=== PATIENT | male | born 1945 | race African-American/Black ===

== ENCOUNTER 2019-10-08 13:56 | Outpatient (CLI) | payer MEDICARE, BC, SELFPAY ==
--- NOTE | ~2019-10-08 | CT_ITS ---
EXAMINATION: CT abdomen pelvis w con EXAM DATE: 10/08/2019 15:19 INDICATION: Prostate cancer. TECHNIQUE: Spiral CT of the abdomen and pelvis was performed following intravenous injection of 100 m L Omnipaque 350. Axial, coronal and sagittal images were reviewed. The dose-length product (DLP) fo r this examination was 1059.58 mGy-cm. The exposure was tailored according to patient size (auto mA exposure control), and iterative reconstruction (ASIR) was used as additional dose reduction techniqu e. Comparison is made to prior examination from 01/16/2019. FINDINGS: 7 mm simple cystic structure of the pancreatic tail is unchanged, not likely clinically sig nificant finding. The liver, spleen, adrenal glands and pancreas are otherwise unremarkable. Gallbl adder is unremarkable. No biliary obstruction. Portal and splenic veins are patent. Kidneys enhanc e symmetrically. There is no hydronephrosis. There is 3 mm right inferior calyceal stone. There is a 2.4 cm left renal cyst. There are prostate radiation seeds. The bladder is unremarkable. Several upper retroperitoneal lymph nodes which are upper limits of normal in size, unchanged compared to diana or study. Pelvic lymph nodes which are mildly enlarged, with a left obturator node measuring 1.8 x 1. 3 cm, unchanged. There is mild scattered arteriosclerotic disease. The appendix is normal. There is mild to moderate scattered colonic diverticulosis. There is no melanie cent inflammatory change to suggest diverticulitis. The stomach and small bowel are unremarkable. Th ere is expected amount of colonic stool. No free intraperitoneal gas. The heart is normal in size . There are no pericardial or pleural effusions. Bilateral hilar calcified lymph nodes, from prior granulomatous process. There is bibasilar subsegmental atelectasis. Mild lumbar levoscoliosis. There are no osteoblastic or osteolytic lesions identified. IMPRESSION: 1. Stable mild enlarged pelvic and borderline-sized upper retroperitoneal lymph nodes. 2. Stable subcentimeter pancreatic tail cystic lesion, likely benign. 3. Right nephrolithiasis. 4. Mild colonic diverticulosis. Reviewed, dictated and finalized at location A. IMPRESSION: 1. Stable mild enlarged pelvic and borderline-sized upper retroperitoneal lymp h nodes. 2. Stable subcentimeter pancreatic tail cystic lesion, likely benign. 3. Right nephrolithiasis. 4. Mild colonic diverticulosis.
[2019-10-08 15:14] LABS: Estimated Glomerular Filt Rate > 60
== END 2019-10-08 13:57 | disposition home or self-care (01) ==
LOC: ANHIMG 13:59
PROVIDERS: PCP Internal Medicine; Visit Provider Urology
DX: C61 Malignant neoplasm of prostate (principal); N20.0 Calculus of kidney; K57.30 Diverticulosis of large intestine without perforation or abscess without bleeding
CPT/HCPCS: 36415; 74177; Q9967

== ENCOUNTER 2021-08-08 09:51 | Outpatient (CLI) | payer MEDICARE, BC, SELFPAY ==
--- NOTE | ~2021-08-08 | NM_ITS ---
EXAMINATION: NM bone scan whole body DATE: 08/08/2021 13:23 INDICATION: Prostate cancer. TECHNIQUE: 24.2 mCi Tc-99m HDP was administered intravenously. Delayed whole-body scintigrams were o btained. COMPARISON: CT abdomen and pelvis 08/08/2021, bone scan 01/16/2019 FINDINGS: There are bilateral total knee arthroplasties. There is persistent increased activity in th e distal femora and proximal tibiae adjacent to the arthroplasty, which is a nonspecific finding and can be normal. There is increased activity in the spine correlating with spondylosis by CT. There is increased activity at the acromioclavicular joints without radiographic comparison, likely osteoarthr itis. IMPRESSION: 1. No evidence of metastatic disease. Reviewed, dictated and finalized at location B.
--- NOTE | ~2021-08-08 | CT_ITS ---
EXAMINATION: CT abdomen pelvis wo con DATE: 08/08/2021 11:03 INDICATION: Prostate cancer restaging TECHNIQUE: Computed tomography (CT) of the abdomen and pelvis was performed without intravenous contr ast. Automated exposure control and iterative reconstruction technique were employed. Exam dose: 100 6.59 mGy-cm total exam DLP. COMPARISON: 10/08/2019 CT abdomen pelvis FINDINGS: There is atelectasis at the base of the lingula and middle lobe and lesser mild bilateral l ower lobe infiltrate or atelectasis. Bilateral calcified hilar and mediastinal nodes, consistent with old pulmonary granulomatous disease. Mild cardiomegaly. Coronary artery calcification. No pericardial or pleural effusion. The liver, gallbladder, bile ducts, spleen, pancreas and pancreatic duct are unremarkable. Normal morphology of the adrenal glands. Approximately 5.5 mm nonobstructing lower pole right renal calculus Again noted is an approximately 2.3 cm lower pole left renal cyst no urinary tract calculus or hydrou reteronephrosis. There are numerous radiopaque prostate seeds. There is moderate diffuse thickening of the urinary nell dder wall. Small bilateral fat-containing inguinal hernias. Diverticulosis of left and right colon; no CT evidence of diverticulitis. Normal appendix. No bowel obstruction, bowel wall thickening, pneumatosis or intraperitoneal free air. Normal caliber of the abdominal aorta. No intraperitoneal or retroperitoneal or pelvic mass lesion or adenopathy or ascites. Degenerative changes of the thoracic and lumbar spine. No suspicious osteolytic or osteoblastic lesio ns are noted. IMPRESSION: Radiopaque prostate seeds Atelectasis in the lower lungs Mild thyromegaly nonobstructing lower pole right renal calculus Approximately 2.3 cm left renal cyst Diverticulosis of colon; no evidence of diverticulitis Reviewed, dictated and finalized at Location A. Reviewed, dictated and finalized at location A.
== END 2021-08-08 09:52 | disposition home or self-care (01) ==
PROVIDERS: PCP Internal Medicine; Visit Provider Nurse Practitioner Adult Health
DX: C61 Malignant neoplasm of prostate (principal); J98.11 Atelectasis; E01.0 Iodine-deficiency related diffuse (endemic) goiter; N20.0 Calculus of kidney; N28.1 Cyst of kidney, acquired; K57.90 Diverticulosis of intestine, part unspecified, without perforation or abscess without bleeding
CPT/HCPCS: 74176; 78306; A9561

== ENCOUNTER 2022-07-04 08:44 | Outpatient (CLI) | payer MEDICARE, BC, SELFPAY ==
--- NOTE | ~2022-07-04 | XR_ITS ---
XR abdomen/kub 1V 07/04/2022 09:00 Indication: Prostate cancer Procedure: KUB Comparison: No prior studies for comparison. Findings: There are radiation therapy implant seeds in the expected location of the prostate bed. The re is severe lumbar spondylosis with levoscoliosis. Nonobstructive bowel gas pattern. 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 There is atherosclerosis. No abnormal calcifications. Impression: 1: No acute abdominal abnormality. Reviewed, dictated and finalized at location B. Impression: 1: No acute abdominal abnormality.
--- NOTE | ~2022-07-04 | CT_ITS ---
EXAMINATION: CT abdomen pelvis wo con DATE: 07/04/2022 09:09 INDICATION: Prostate cancer TECHNIQUE: Computed tomography (CT) of the abdomen and pelvis was performed without intravenous contr ast. Automated exposure control and iterative reconstruction technique were employed. The dose-length product was 896.83 mGy-cm. COMPARISON: 08/08/2021 and 01/16/2019 FINDINGS: Unchanged 4 mm nodule in the superior segment of the left lower lobe. Bibasilar atelectasis. Calcifie d bilateral hilar and mediastinal lymph nodes consistent with old granulomatous disease. Heart size n ormal. Atherosclerotic coronary artery calcification. No pericardial or pleural effusion. Liver, gall bladder, spleen and bilateral adrenal glands are normal. Increase in size of a previously currently 1 .2 cm cystic lesion at the tail of the pancreas which measured 8 mm on the study from 2018. Bilateral low-attenuation renal cysts the largest on the left measuring 3.0 cm. 3-4 mm nonobstructing stone at a lower pole calyx of the right kidney. Moderate diverticulosis along the descending and sigmoid col on without adjacent comparison to suggest diverticulitis. Small bowel and appendix are normal. Bladde r is normal. Multiple brachytherapy seeds at the prostate. Unchanged small bilateral inguinal hernias containing fat and normal sized inguinal lymph nodes. No free intraperitoneal gas or fluid. No patho logically enlarged abdominal or pelvic lymphadenopathy. Mild lumbar levoscoliosis with severe spondyl osis. No suspicious lytic or blastic bone lesions. IMPRESSION: 1. Brachytherapy seeds at the prostate for reported prostate cancer. No evident metastatic disease. 2. Slight increase in size of an indeterminate cystic lesion at the tail of the pancreas currently me asuring 12 mm, increased from 8 mm on study dated 01/16/2019. Recommend continued annual follow-up pr eferably with pre and postcontrast MRI. 3. Nonobstructing 3-4 mm right renal stone. 4. Diverticulosis. Reviewed, dictated and finalized at location A. IMPRESSION: 1. Brachytherapy seeds at the prostate for reported prostate cancer. No evident metastatic disease. 2. Slight increase in size of an indeterminate cystic lesion at the tail of the pancreas currently measuring 12 mm, increased from 8 mm on study dated 019. Recommend continued annual follow-up preferably with pre and postcontrast MRI. 3. Nonobstructing 3-4 mm right renal stone. 4. Diverticulosis.
== END 2022-07-04 08:45 | disposition home or self-care (01) ==
PROVIDERS: PCP Internal Medicine; Visit Provider Urology
DX: C61 Malignant neoplasm of prostate (principal); K57.30 Diverticulosis of large intestine without perforation or abscess without bleeding; N20.0 Calculus of kidney
CPT/HCPCS: 74018; 74176

== ENCOUNTER 2023-12-11 13:10 | Outpatient (CLI) | payer MEDICARE, BC, SELFPAY ==
--- NOTE | ~2023-12-11 | PE_ITS ---
EXAMINATION: PET_PETPSMAST_PT DATE: 12/11/2023 15:30 INDICATION: Prostate cancer TECHNIQUE: 6.085 mCi of Illucix Ga-68(58-[id number]) was administered i.v. Low dose computed jersey graphy (CT) images were acquired from the base of the brain to the base of the brain to the proximal thighs for attenuation correction and anatomic localization. Positron emission tomography (PET) image s were acquired in the same distribution beginning 88 minutes after injection. Images including fused PET/CT images were reconstructed in axial, coronal, and sagittal planes. Automated exposure control technique was employed. The dose-length product was 1162.09 mGy-cm. COMPARISON: None FINDINGS: Head/neck: Typical pattern of symmetric physiologic increased activity in the lacrimal, parotid and submandibula r glands as well as along the mucosa of the nasal and oral cavities, pharynx and hypopharynx. No path ologically enlarged cervical lymphadenopathy or suspicious foci of increased uptake in the visualized head or neck. Chest: A few small bilateral calcified pulmonary nodules along with multiple calcified mediastinal and bilat eral hilar lymph nodes consistent with old granulomatous disease. Mild bibasilar atelectasis. No pneu monia, suspicious pulmonary nodules or pleural effusion. Heart size is normal. Atherosclerotic rashid ry artery calcific lesion. No pericardial effusion. Thoracic aorta is normal in caliber. No pathologi jose g enlarged or PSMA avid thoracic lymphadenopathy. Abdomen/pelvis/proximal thighs: Physiologic renal accumulation and excretion of activity in the kidneys, bladder and along portions o f ureters. 2.8 cm low-attenuation photopenic cyst at the lower pole of the left kidney. 3 mm nonobstr ucting stone at the lower pole of the right kidney. There are brachytherapy seeds at the prostate. Th ere is an approximately 1 cm focus of increased PSA may uptake with maximal SUV of 12 at the left pos terior superior aspect of the prostate consistent with recurrent disease. This is in a region of rela tive paucity of brachytherapy seeds. Normal degree and slightly heterogenous pattern of increased upt faina throughout the liver and spleen without radiologic correlate or dominant PSMA avid lesion. The ga llbladder, pancreas and bilateral adrenal glands are normal. Moderate uptake scattered throughout the bowels with typical duodenal and proximal jejunal predominance and without radiologic correlate, als o likely physiologic. Mild scattered diverticulosis with descending colon predominance. Normal append ix. No other abnormal foci of increased uptake or pathologically enlarged lymphadenopathy in the abdo men, pelvis or proximal thighs. Musculoskeletal: Mild lumbar levoscoliosis. Moderate to severe spondylosis in the cervical, thoracic and lumbar spine. No suspicious lytic, blastic or PSMA avid bone lesions. IMPRESSION: 1. Brachytherapy seeds in the prostate with 1 cm focus of increased PSMA activity at the left posteri or superior prostate suspicious for locally recurrent disease. No other lesions suspicious for more r emote metastatic disease. Reviewed, dictated and finalized at location A. IMPRESSION: 1. Brachytherapy seeds in the prostate with 1 cm focus of increased PSMA activi ty at the left posterior superior prostate suspicious for locally recurrent dis ease. No other lesions suspicious for more remote metastatic disease.
== END 2023-12-11 13:11 | disposition home or self-care (01) ==
PROVIDERS: PCP Internal Medicine; Visit Provider Urology
DX: C61 Malignant neoplasm of prostate (principal); Z96.89 Presence of other specified functional implants
CPT/HCPCS: 78815; A9596

== ENCOUNTER 2024-04-16 07:58 | Outpatient (CLI) | payer MEDICARE, BC, SELFPAY ==
--- NOTE | ~2024-04-16 | NM_ITS ---
EXAMINATION: NM bone scan whole body DATE: 04/16/2024 11:34 INDICATION: Prostate cancer TECHNIQUE: 26.9 mCi Tc-99m HDP was administered intravenously. Delayed whole-body scintigrams were o btained. COMPARISON: 08/08/2021 FINDINGS: Mild likely degenerative joint centered uptake at the bilateral sternoclavicular and acromioclavicula r joints. No interval change in additional likely degenerative disc centered and facet and costoverte bral vertebral articulation centered uptake in the thoracic and lumbar spine with corresponding degen erative skeletal changes are evident on the prior PET/CT. No other suspicious foci of abnormal bone u ptake to suggest metastatic disease. IMPRESSION: 1. No evident metastatic disease. 2. Persistent rim of increased uptake along the margins of bilateral revision total knee arthroplasti es. Recommend correlation with plain radiographs if there is concern for loosening. Reviewed, dictated and finalized at location A. ACTIVE SURGEON IMPRESSION: 1. No evident metastatic disease. 2. Persistent rim of increased uptake along the margins of bilateral revision t otal knee arthroplasties. Recommend correlation with plain radiographs if there is concern for loosening.
--- OUTSIDE RECORDS SUMMARY | 2024-04-16 08:03 | XMS_ITS | Encounter Summary ---
Author Organization [facility] Facility Care Team Providers Care Corporate Strategy Associate Name Role Phone Asad Engel MD Primary Care Provider [phone] Anirudh Weathers DO Primary Care Provider [phone] Asad Engel MD Primary Care Provider [phone] Kodak Albright MD Unavailable Anirudh Weathers DO Primary Care Provider [phone] Asad Engel MD Primary Care Provider [phone] Dajuan Weathers MD Unavailable [phone] Encounter Details Date Type Department Care Team (Latest Contact Info) Description 03/05/2017 Orders Only [facility] CLINCONV ProviderNidia MD [address] [place] [address] Social History Tobacco Use Types Packs/Day Years Used Date Smoking Tobacco: Never Sex and Gender Information Value Date Recorded Sex Assigned at Not on file Legal Sex Male 7:27 PM UPHOLSTERY BUNDLER Gender Identity Not on file Sexual Orientation Not on file documented as of this encounter Plan of Treatment Not on file documented as of this encounter Procedures Procedure Name Priority Date/Time Associated Diagnosis Comments SCAN - LABS 03/05/2017 12:00 AM UPHOLSTERY BUNDLER documented in this encounter Results * SCAN - LABS (03/05/2017 12:00 AM UPHOLSTERY BUNDLER) Narrative 03/05/2017 12:00 AM UPHOLSTERY BUNDLER Ordered by an unspecified provider. us Historical Provider Final Res ult documented in this encounter Visit Diagnoses Not on filedocumented in this encounter Additional Health Concerns Infection Onset Date Last Indicated Resolved Time COVID: Suspected 01/17/2022 01/17/2022 01/17/2022 10:28 PM UPHOLSTERY BUNDLER documented as of this encounter Care Teams Corporate Strategy Associate Relationship Specialty Start Date End Date Asad Engel MD PCP - General 05/16/18 12/21/18 Anirudh Weathers DO PCP - General 12/22/18 12/28/18 Asad Engel MD PCP - General 12/29/18 09/16/22 Anirudh Weathers DO [address] [address] PCP - General Orthopedic Surgery 09/17/22 10/14/22 Asad Engel MD PCP - General Internal Medicine 10/15/22 Kodak Albright MD Consulting Physician Pain Management 07/05/22 [place] [address] [place] [id number] Referring Physician Pediatrics 10/15/22 documented as of this encounter
--- OUTSIDE RECORDS SUMMARY | 2024-04-16 08:03 | XMS_ITS | Patient Health Summary ---
Author Organization [facility] [employer] Address [address] [place] [address] Care Team Providers Care Furnace Installer Name Role Phone Asad Engel MD Primary Care Provider [phone] Note from [facility],non-owned Affiliates and Associated Physician Practices is amultiple site organization consisting of ambulatory clinics and hospital sitesin [place], [place], [place] and [place]. This disclosure is being madepursuant to the Care Everywhere program and may not contain all information available regarding this patient. Last updated 17.[facility] Allergies * Diclofenac Sodium(Rash) -Medium Criticality * Iodine(Drug Reaction with Eosinophilia and Systemic Symptoms (DRESS)) -High Criticality Medications Be aware that medications may not be up to date on this document. Always verify current medications with the patient. No known medications Active Problems No known active problems Immunizations * INFLUENZA VACCINE(Given 12/09/2018) Social History Tobacco Use Types Packs/Day Years Used Date Smoking Tobacco: Never Assessed Sex and Gender Information Value Date Recorded Sex Assigned at Not on file Gender Identity Not on file Sexual Orientation Not on file Last Filed Vital Signs Vital Sign Reading Time Taken Comments Blood Pressure - - Pulse - - Temperature - - Respiratory Rate - - Oxygen Saturation - - Inhaled Oxygen Concentration - - Weight 106.1 kg (234 lb) 12/24/2018 11:46 AM CDT Height 167.6 cm (5' 6 ) 12/24/2018 11:46 AM CDT Body Mass Index 37.77 12/24/2018 11:46 AM CDT Procedures * XR KNEE LEFT 4VW OR MORE(Performed 12/24/2018) Performed for Left knee pain, unspecified chronicity Results * XR KNEE LEFT 4VW OR MORE (12/24/2018 11:18 AM CDT) Anatomical Region Laterality Modality Lower Extremity Radiographic Jane ging 12/24/2018 11:2 3 AM CDT Impressions 12/24/2018 12:07 PM CDT Satisfactory postop appearance. Edited by Vy Becerra on 12/24/2018 11:36 AM Reading Radiologist: Dennis Billy MD on 12/24/2018 at 12:07 PM Narrative 12/24/2018 12:07 PM CDT LEFT KNEE MULTIPLE VIEWS HISTORY: Knee pain. Views of the knee show a total knee prosthesis in satisfactory position. Procedure Note Dennis Billy MD - 12/24/2018 LEFT KNEE MULTIPLE VIEWS HISTORY: Knee pain. Views of the knee show a total knee prosthesis in satisfactory position. IMPRESSION Satisfactory postop appearance. Edited by Vy Becerra on 12/24/2018 11:36 AM Reading Radiologist: Dennis Billy MD on 12/24/2018 at 12:07 PM Murtaza Vines MD DIAGNOSTIC IMAGING ORDERABLES Care Teams Furnace Installer Relationship Specialty Start Date End Date Asad Engel MD [address] [place] [address] PCP - General 12/16/18
--- OUTSIDE RECORDS SUMMARY | 2024-04-16 08:03 | XMS_ITS | Encounter Summary ---
Author Organization [facility] Facility Care Team Providers Care Roentgenologist Name Role Phone Asad Engel MD Primary Care Provider [phone] Anirudh Weathers DO Primary Care Provider [phone] Asad Engel MD Primary Care Provider [phone] Kodak Albright MD Unavailable Anirudh Weathers DO Primary Care Provider [phone] Asad Engel MD Primary Care Provider [phone] Dajuan Weathers MD Unavailable [phone] Encounter Details Date Type Department Care Team (Latest Contact Info) Description 05/01/2017 Orders Only [facility] CLINCONV ProviderNidia MD [address] [place] [address] Social History Tobacco Use Types Packs/Day Years Used Date Smoking Tobacco: Never Sex and Gender Information Value Date Recorded Sex Assigned at Not on file Legal Sex Male 7:27 PM HOG TENDER Gender Identity Not on file Sexual Orientation Not on file documented as of this encounter Plan of Treatment Not on file documented as of this encounter Procedures Procedure Name Priority Date/Time Associated Diagnosis Comments PROCEDURE - RESULT 05/15/2017 12 :00 AM CDT documented in this encounter Results * PROCEDURE - RESULT (05/15/2017 12:00 AM CDT) Narrative 05/15/2017 12:00 AM CDT Ordered by an unspecified provider. us Historical Provider Final Res ult documented in this encounter Visit Diagnoses Not on filedocumented in this encounter Additional Health Concerns Infection Onset Date Last Indicated Resolved Time COVID: Suspected 01/17/2022 01/17/2022 01/17/2022 10:28 PM HOG TENDER documented as of this encounter Care Teams Roentgenologist Relationship Specialty Start Date End Date Asad Engel MD PCP - General 05/16/18 12/21/18 Anirudh Weathers DO PCP - General 12/22/18 12/28/18 Asad Engel MD PCP - General 12/29/18 09/16/22 Anirudh Weathers DO [address] [address] PCP - General Orthopedic Surgery 09/17/22 10/14/22 Asad Engel MD PCP - General Internal Medicine 10/15/22 Kodak Albright MD Consulting Physician Pain Management 07/05/22 Dajuan Weathers MD [address] [place] [address] Referring Physician Pediatrics 10/15/22 documented as of this encounter
--- OUTSIDE RECORDS SUMMARY | 2024-04-16 08:03 | XMS_ITS | Encounter Summary ---
Author Organization [facility] Care Team Providers Care Business Education Teacher Name Role Phone Asad Engel MD Primary Care Provider [phone] Anirudh Weathers DO Primary Care Provider [phone] Asad Engel MD Primary Care Provider [phone] Kodak Albright MD Unavailable Anirudh Weathers DO Primary Care Provider [phone] Asad Engel MD Primary Care Provider [phone] Dajuan Weathers MD Unavailable [phone] Encounter Details Date Type Department Care Team (Latest Contact Info) Description 03/13/2017 Orders Only [facility] CLINCONV ProviderNidia MD [address] [place] [address] Social History Tobacco Use Types Packs/Day Years Used Date Smoking Tobacco: Never Sex and Gender Information Value Date Recorded Sex Assigned at Not on file Legal Sex Male 7:27 PM INFECTIOUS DISEASE PHYSICIAN Gender Identity Not on file Sexual Orientation Not on file documented as of this encounter Plan of Treatment Not on file documented as of this encounter Procedures Procedure Name Priority Date/Time Associated Diagnosis Comments SCAN - LABS 03/13/2017 12:00 AM INFECTIOUS DISEASE PHYSICIAN documented in this encounter Results * SCAN - LABS (03/13/2017 12:00 AM INFECTIOUS DISEASE PHYSICIAN) Narrative 03/13/2017 12:00 AM INFECTIOUS DISEASE PHYSICIAN Ordered by an unspecified provider. us Historical Provider Final Res ult documented in this encounter Visit Diagnoses Not on filedocumented in this encounter Additional Health Concerns Infection Onset Date Last Indicated Resolved Time COVID: Suspected 01/17/2022 01/17/2022 01/17/2022 10:28 PM INFECTIOUS DISEASE PHYSICIAN documented as of this encounter Care Teams Business Education Teacher Relationship Specialty Start Date End Date Asad Engel MD PCP - General 05/16/18 12/21/18 Anirudh Weathers DO PCP - General 12/22/18 12/28/18 Asad Engel MD PCP - General 12/29/18 09/16/22 Anirudh Weathers DO [address] [address] PCP - General Orthopedic Surgery 09/17/22 10/14/22 Asad Engel MD PCP - General Internal Medicine 10/15/22 Kodak Albright MD Consulting Physician Pain Management 07/05/22 [place] [address] [place] [id number] Referring Physician Pediatrics 10/15/22 documented as of this encounter
--- OUTSIDE RECORDS SUMMARY | 2024-04-16 08:03 | XMS_ITS | Clinical Summary ---
Author Organization [facility] [employer] Address [address] [place] [address] Care Team Providers Care Photolithographer Name Role Phone Asad Engel MD Primary Care Provider [phone] Source Comments [facility] [employer],non-owned Affiliates and Associated Physician Practices is amultiple site organization consisting of ambulatory clinics and hospital sitesin [place], [place], [place] and [place]. This disclosure is being madepursuant to the Care Everywhere program and may not contain all information available regarding this patient. Last updated 17.[facility] [employer] Allergies Active Allergy Reactions Criticality Noted Date Comments Diclofenac Sodium Rash Medium 04/26/2015 Iodine Drug Reaction with E osinophilia and Systemic Symptoms (DRESS) High 01/11/2016 Medications Be aware that medications may not be up to date on this document. Always verify current medications with the patient. No known medications Active Problems No known active problems Immunizations Name Administration Dates Next Due INFLUENZA VACCINE 12/09/2018 Social History Tobacco Use Types Packs/Day Years [...] Mass Index 37.77 12/24/2018 11:46 AM CDT Plan of Treatment Health Maintenance Due Date Last Done Comments MEDICARE AWV 12 MONTHS 1945 HEPATITIS C SCREENING 06/27/1964 DTAP/TDAP/TD VACCINES (1 - Tdap) 1965 PNEUMOCOCCAL VACCINE 50+ (1 of 1 - PCV) 1996 ZOSTER VACCINE (1 of 2) 1996 Respiratory Syncytial Virus (RSV) Vaccine Pt: or over 60 yrs (1 - 1-dose 75+ series) 2021 COVID-19 VACCINE (1 - 2023- season) 2023 INFLUENZA VACCINE (#1) 2023 9, 01/16/2017, 01/10/2016, Additional history exists DEPRESSION SCREENING 02/26/2024 HEPATITIS B VACCINE Aged Out No longe r eligible based on patient's age to complete this topic HIB VACCINE Aged Out No longer eligi ble based on patient's age to complete this topic HPV VACCINE Aged Out No longer eligi ble based on patient's age to complete this topic MENINGOCOCCAL (Group B) VACCINE Aged Out No longer eligible based on patient's age to complete this topic MENINGOCOCCAL VACCINE Aged Out No jerica ashlyn eligible based on patient's age to complete this topic Care Teams Photolithographer Relationship Specialty Start Date End Date Asad Engel MD [address] [place] [id number] PCP - General 12/16/18
--- OUTSIDE RECORDS SUMMARY | 2024-04-16 08:03 | XMS_ITS | Continuity of Care Document ---
Author Organization [employer] Address [address] [place] [address] Phone Care Team Providers Care Correction Officer Head Name Role Phone Bur[place] Asad VILLAGOMEZ Unavailable Unavailable Allergies, Adverse Reactions, Alerts Substance Reaction Status Criticality levofloxacin tendonitis Active No Information IODINE Active No Information DICLOFENAC SODIUM Active No Informa tion Medications Medication Instructions Dosage Effective Dates (start - stop) Status Comments hydrocodone 5 mg-acetaminophen 325 mg tablet take 1 tablet by oral route every 6 hours as needed for pain as needed 1.00 tablet - Active reviewed PDMP on 02/24/2024 oxybutynin chloride ER 5 mg tablet,extended release 24 hr take 1 tablet by oral route every day 5 MG - Active Xarelto 20 mg tablet TAKE 1 TABLET BY MOUTH DAILY WITH EVENING MEAL - Active Lisinopril 5 MG Oral Tablet TAKE 1 TABLET BY MOUTH DAILY - Active glimepiride 4 mg tablet TAKE 1 AND 1/2 TABLETS BY MOUTH DAILY - Active Lexapro 10 mg tablet take 1 tablet by oral route every day 10 MG - Active Metoprolol Succinate ER 50 MG Oral Tablet Extended Release 24 Hour TAKE 1 TABLET BY MOUTH DAILY - Active Januvia 100 MG Oral Tablet TAKE 1 TABLET BY MOUTH DAILY - Active omeprazole 20 mg tablet,delayed release take 1 tablet by oral route daily - Active metformin ER 500 mg tablet,extended release 24 hr TAKE 2 TABLETS BY MOUTH DAILY WITH EVENING MEAL - Active furosemide 40 mg tablet take 1 tablet by oral route every day 40 MG - Active Atorvastatin Calcium 40 MG Oral Tablet TAKE 1 TABLET BY MOUTH DAILY - Active amantadine HCl 100 mg tablet take 0.5 tablet by mouth cable armorer before breakfast - Active Flomax 0.4 mg capsule take 1 capsule by oral route every day 1/2 hour following the same meal each day 0.4 MG - Active Breo Ellipta 100 mcg-25 mcg/dose powder for inhalation inhale 1 puff by inhalation route every day at the same time each day 1.00 puff - Active albuterol sulfate 2.5 mg/3 mL (0.083 %) solution for nebulization inhale 3 milliliter (2.5MG) by nebulization route every 4-6 hours as needed - Active J45.40 FreeStyle Lite Strips test blood sugar daily - Active prednisone 20 mg tablet take 2 tablet by oral route once a day for 5 days - No Longer Active Zithromax Z-Deejay 250 mg tablet take 2 tablet by oral route every day for 1 day then 1 tablet (250 mg) by oral route once daily for 4 days 500 MG - No Longer Active Procedures Procedure Date URINALYSIS, DIPSTICK (UA) - Office Lab D OFFICE SXYUX-JLE-PFYDTOSL BODY MASS INDEX DOCD SYST BP LT 130 MM HG DIAST BP < 80 MM HG URINALYSIS, DIPSTICK (UA) - Office Lab N Pt inelig neg scrn depres Depression screen annual Clin depression screen doc OFFICE [id number]-[id number] BODY MASS INDEX DOCD SYST BP LT 130 MM HG DIAST BP < 80 MM HG Admin influenza virus vac RIV3 VACCINE NO PRESERV IM BASIC METABOLIC PANEL(BMP) HEMOGLOBIN A1C HGA1C, GLYCO ROUTINE VENIPUNCTURE [place] OFFICE [id number] URINALYSIS, DIPSTICK (UA) - Office Lab J DSCHRG MED/CURRENT MED MERGE OFFICE DXNOO-MFE-XEORDVAI BODY MASS INDEX DOCD SYST BP GE 130 - 139MM HG DIAST BP < 80 MM HG Pt inelig neg scrn depres FALL RISK ASSESSMENT DOC'D PRES/ABSN URINE INCON ASSESS PPPS, subseq visit BODY MASS INDEX DOCD SYST BP LT 130 MM HG DIAST BP < 80 MM HG CBC, INC PLATELETS AND DIFFERENTIAL COMPREHEN METABOLIC PANEL CMP HEMOGLOBIN A1C HGA1C, GLYCO LIPID PANEL MICROALBUMIN, QN (URINE) CREATININE, (U-R) PSA, TOTAL PARATHYROID HORMONE (PTH) ROUTINE VENIPUNCTURE [place] Admin influenza virus vac FLU VACC PRSV FREE INC ANTIG BASIC METABOLIC PANEL(BMP) HEMOGLOBIN A1C HGA1C, GLYCO Pt inelig neg scrn depres OFFICE [id number] BODY MASS INDEX DOCD SYST BP LT 130 MM HG DIAST BP < 80 MM HG PNEUMOVAX ADM MEDICARE Pneumococcal Conjugate Vaccine (PCV20) A ROUTINE VENIPUNCTURE [place] OFFICE [id number]-MST-BNVWCTUS BODY MASS INDEX DOCD SYST BP >= 140 MM HG6 IT DIAST BP < 80 MM HG URINALYSIS, DIPSTICK (UA) - Office Lab J Pt inelig neg scrn depres OFFICE [id number]-JJN-[id number] BODY MASS INDEX DOCD SYST BP >= 140 MM HG6 IT DIAST BP < 80 MM HG URINALYSIS, DIPSTICK (UA) - Office Lab M BASIC METABOLIC PANEL(BMP) BRAIN NATRIURETIC PEPTIDE (BNP) 023 OFFICE GIXEN-ZAP-ABUHTRCY BODY MASS INDEX DOCD SYST BP >= 140 MM HG6 IT DIAST BP < 80 MM HG ROUTINE VENIPUNCTURE IL Pt inelig neg scrn depres FALL RISK ASSESSMENT DOC'D PRES/ABSN URINE INCON ASSESS OFFICE [id number] PPPS, subseq visit BODY MASS INDEX DOCD SYST BP LT 130 MM HG DIAST BP < 80 MM HG CBC, INC PLATELETS AND DIFFERENTIAL COMPREHEN METABOLIC PANEL CMP HEMOGLOBIN A1C HGA1C, GLYCO LIPID PANEL MICROALBUMIN, QN (URINE) CREATININE, (U-R) PSA, TOTAL PARATHYROID HORMONE (PTH) ROUTINE VENIPUNCTURE [place] OFFICE HYKYS-HQT-[id number] BODY MASS INDEX DOCD SYST BP GE 130 - 139MM HG DIAST BP < 80 MM HG DSCHRG MED/CURRENT MED MERGE OFFICE [id number]-DJB-[id number] BODY MASS INDEX DOCD SYST BP LT 130 MM HG DIAST BP < 80 MM HG OFFICE [id number]-YCJ-[id number] BODY MASS INDEX DOCD SYST BP >= 140 MM HG6 IT DIAST BP < 80 MM HG URINALYSIS, DIPSTICK (UA) - Office Lab O Admin influenza virus vac Flu Vac, quad (RIV4), Preservative And A ntibiotic Free IM Pt inelig neg scrn depres OFFICE LYPHY-UXZ-LZTMUGNY BODY MASS INDEX DOCD SYST BP >= 140 MM HG6 IT DIAST BP < 80 MM HG URINALYSIS, DIPSTICK (UA) - Office Lab A BASIC METABOLIC PANEL(BMP) HEMOGLOBIN A1C HGA1C, GLYCO ROUTINE VENIPUNCTURE IL Pt inelig neg scrn depres OFFICE PEAWQ-TUC-BRBGBARO BODY MASS INDEX DOCD SYST BP GE 130 - 139MM HG DIAST BP < 80 MM HG BASIC METABOLIC PANEL(BMP) HEMOGLOBIN A1C HGA1C, GLYCO ROUTINE VENIPUNCTURE IL URINALYSIS, DIPSTICK (UA) - Office Lab D Pt inelig neg scrn depres OFFICE EPSUA-NXM-SXZACEUS BODY MASS INDEX DOCD SYST BP >= 140 MM HG6 IT DIAST BP < 80 MM HG OFFICE PEAGH-QJY-KHLKHVCM [facility] - 139MM HG DIAST BP < 80 MM HG CBC, INC PLATELETS AND DIFFERENTIAL ROUTINE VENIPUNCTURE [place] OFFICE JYHHY-OSJ-INODEWOU BODY MASS INDEX DOCD SYST BP LT 130 MM HG DIAST BP < 80 MM HG CBC, INC PLATELETS AND DIFFERENTIAL COMPREHEN METABOLIC PANEL [facility] RBC SED RATE, AUTOMATED DRUG TEST (ANY NUMBER OF DRUG CLASSES) O GLUCOSE MONITORING, FINGERSTICK-OFFICE L AB ROUTINE VENIPUNCTURE IL Pt inelig neg scrn depres Admin influenza virus vac Flu Vac, quad (RIV4), Preservative And A ntibiotic Free IM PPPS, subseq visit [facility] 140 MM HG6 IT DIAST BP < 80 MM HG CBC, INC PLATELETS AND DIFFERENTIAL COMPREHEN METABOLIC PANEL [facility] HEMOGLOBIN A1C HGA1C, GLYCO LIPID PANEL MICROALBUMIN, QN (URINE) CREATININE, (U-R) PSA, TOTAL, SCREENING MEDICARE ONLY ROUTINE VENIPUNCTURE HEALTH RISK ASSESSMENT, PATIENT-FOCUSED MOUTHPIECE RESPIRATORY FLOW VOLUME LOOP OFFICE EVJBE-QJT-FDARANMU BODY MASS INDEX DOCD SYST BP >= 140 MM HG6 IT DIAST BP 80-89 MM HG Pt inelig neg scrn depres OFFICE [id number]-SWZ-[id number] BODY MASS INDEX DOCD SYST BP GE 130 - 139MM HG DIAST BP < 80 MM HG BASIC METABOLIC PANEL(BMP) HEMOGLOBIN A1C HGA1C, GLYCO ROUTINE VENIPUNCTURE IL HEALTH RISK ASSESSMENT, PATIENT-FOCUSED OFFICE WOIAZ-CSH-EOYLNMWJ BODY MASS INDEX DOCD SYST BP >= 140 MM HG6 IT DIAST BP < 80 MM HG MOUTHPIECE RESPIRATORY FLOW VOLUME LOOP Pt inelig neg scrn depres OFFICE RPLUJ-AUS-YGCPBUKQ BODY MASS INDEX DOCD SYST BP GE 130 - 139MM HG DIAST BP < 80 MM HG BASIC METABOLIC PANEL(BMP) HEMOGLOBIN A1C HGA1C, GLYCO ROUTINE VENIPUNCTURE IL C-REACTIVE PROTEIN (CRP) CBC, INC PLATELETS AND DIFFERENTIAL RBC SED RATE, AUTOMATED ROUTINE VENIPUNCTURE IL FALL RISK ASSESSMENT DOC'D PRES/ABSN URINE INCON ASSESS Pt inelig neg scrn depres PPPS, subseq visit BODY MASS INDEX DOCD SYST BP >= 140 MM HG6 IT DIAST BP < 80 MM HG Admin influenza virus vac Flu Vac, quad (RIV4), Preservative And A ntibiotic Free IM CBC, INC PLATELETS AND DIFFERENTIAL COMPREHEN METABOLIC PANEL CMP 0 HEMOGLOBIN A1C HGA1C, GLYCO LIPID PANEL MICROALBUMIN, QN (URINE) CREATININE, (U-R) PSA, TOTAL, SCREENING MEDICARE ONLY ROUTINE VENIPUNCTURE IL HEALTH RISK ASSESSMENT, PATIENT-FOCUSED OFFICE UGMOK-TPU-RZJKTYLL BODY MASS INDEX DOCD SYST BP >= 140 MM HG6 IT DIAST BP 80-89 MM HG RESPIRATORY FLOW VOLUME LOOP MOUTHPIECE Pt inelig neg scrn depres OFFICE EEESG-PUY-IMBZDMHP BODY MASS INDEX DOCD SYST BP >= 140 MM HG6 IT DIAST BP < 80 MM HG BASIC METABOLIC PANEL(BMP) HEMOGLOBIN A1C HGA1C, GLYCO ROUTINE VENIPUNCTURE IL BASIC METABOLIC PANEL(BMP) CBC, INC PLATELETS AND DIFFERENTIAL FERRITIN LEVEL FOLIC ACID (S) (FOLATE) HEMOGLOBIN A1C HGA1C, GLYCO IRON (FE), TOTAL TIBC, & % SATURATION RETICYTE/HGB CONCENTRATE VITAMIN B12 (SERUM) ROUTINE VENIPUNCTURE IL Pt inelig neg scrn depres TELEPHONE E&M BY A PHYSICIAN; 11-20 JOSÉ LUIS SHIELA SYST BP >= 140 MM HG6 IT DIAST BP >= 90 MM HG DSCHRG MED/CURRENT MED MERGE Pt inelig neg scrn depres Transitional Care- 14 Days Of Discharge BODY MASS INDEX DOCD SYST BP LT 130 MM HG DIAST BP < 80 MM HG Pt inelig neg scrn depres OFFICE [id number]-[id number] BODY MASS INDEX DOCD SYST BP LT 130 MM HG DIAST BP < 80 MM HG Pt inelig neg scrn depres OFFICE TRFST-XOO-WPEQCBLU BODY MASS INDEX DOCD SYST BP >= 140 MM HG6 IT DIAST BP < 80 MM HG CBC, INC PLATELETS AND DIFFERENTIAL COMPREHEN METABOLIC PANEL [facility] 0 ROUTINE VENIPUNCTURE IL FALL PLAN OF CARE DOC'D URINE INCON PLAN DOC'D PRES/ABSN URINE INCON ASSESS Admin influenza virus vac Flu Vac, quad (RIV4), Preservative And A ntibiotic Free IM Pt inelig neg scrn depres OFFICE [id number]-JPT-[id number] PPPS, subseq visit BODY MASS INDEX DOCD SYST BP GE 130 - 139MM HG DIAST BP < 80 MM HG CBC, INC PLATELETS AND DIFFERENTIAL COMPREHEN METABOLIC PANEL [facility] 9 HEMOGLOBIN A1C HGA1C, GLYCO LIPID PANEL MICROALBUMIN, QN (URINE) CREATININE, (U-R) PSA, TOTAL, SCREENING MEDICARE ONLY ROUTINE VENIPUNCTURE IL CBC, INC PLATELETS AND DIFFERENTIAL COMPREHEN METABOLIC PANEL [facility] 9 ROUTINE VENIPUNCTURE IL OFFICE MEJWV-RUO-[id number] BODY MASS INDEX DOCD SYST BP >= 140 MM HG6 IT DIAST BP < 80 MM HG OFFICE [id number]-[id number]-[id number] BODY MASS INDEX DOCD SYST BP GE 130 - 139MM HG DIAST BP < 80 MM HG PULMONARY SPIROMETRY, FUNCTION 19 MOUTHPIECE ADM SET WITH SMALL VOL NON FILTERED PNEU MATIC NEBULIZER DISPOSABLE INHALATION TREATMENT/THERAPY HEALTH RISK ASSESSMENT, PATIENT-FOCUSED OFFICE [id number]-YDC-LEAQCNCF BODY MASS INDEX DOCD SYST BP GE 130 - 139MM HG DIAST BP < 80 MM HG MOUTHPIECE PULMONARY SPIROMETRY, FUNCTION 19 Pt inelig neg scrn depres OFFICE CCBJT-PZO-NLOKMBEY BODY MASS INDEX DOCD SYST BP >= 140 MM HG6 IT DIAST BP < 80 MM HG BASIC METABOLIC PANEL(BMP) HEMOGLOBIN A1C HGA1C, GLYCO ROUTINE VENIPUNCTURE [place] Advance Directives Directive Yes / No Effective Date File Name Resuscitation Do Not Attempt Resuscitation/DNR N/A N/A Life Support Not Answered N/A N/A Intubation Not Answered N/A N/A Antibiotics Not Answered N/A N/A IV Fluid Support Not Answered N/A N/A Tube Feed Not Answered N/A N/A Other Directive N/A N/A WARNING:The information contained in this section is historical and is provided for information only and does not constitute a legal document or any assurance that the information is still accurate. Please verify the information with the gregory of the legal document before using it for clinical purposes. Encounters Encounter Description Practice Location Reason(s) For Visit Diagnoses Date Provider Providers Copied on Encounter [employer] [facility], [address], [place], [place], [address] , tel:[phone] [employer] [facility] No Information 5 English Kamara. [address] [place], [address], [place]. tel:[phone] [facility], [address], [place], [place], [address] , [place] tel: [phone] [employer] [facility] No Information 4 English Kamara. [address] [place], [place], [address], [place]. tel:[phone] [employer] [facility], [address], [place], [place], [address] , tel: [phone] [facility] Acute UTI 4 English Chauhan [address] [place], [place], [address], [place]. tel:[phone] Referring Provider: Asad Engel, [address] [place], [address] . tel:[phone] OFFICE FEXHS-AAG-DLM CUATE [facility], [address], [place], [place], [address] , tel: [phone] [facility] hematuria (chief complaint) Acute UTI 4 Blunt Merle. [address] [place], [place], [address], [place]. tel:[phone] Referring Provider: Asad Engel, [address] [place], [address] . tel:[phone] [facility], [address], [place], [place], [address] , tel: [phone] [facility] No Information 4 English Kamara. [address] [place], [address], [place]. tel:[phone] [facility], [address], [place], [place], [address] , [place] tel: [phone] [facility] No Information 4 English Kamara. [address] [place], [address], [place]. tel:[phone] [facility], [address], [place], [place], [address] , [place] tel: [phone] [facility] No Information 0 4 [place]ian Asad. [address] [place], [address], [place]. tel:[phone] OFFICE [id number]-GIF-WUQ CUATE [facility], [address], [place], [place], [address] , [place] tel: [phone] [facility] chronic conditons (chief complaint) Diabetes mellitus with peripheral circulatory disorderEssen tial (primary) hypertensionB jumana mass index [BMI] 37.0-37.9, adultModerate persistent asthma, uncomplicated Moderate major depression Sep-0 4 [place] Asad. [address] [place], [address], [place]. tel:[phone] Referring Provider: Asad Engel, [address] [place], [address] . tel:[phone] [facility], [address], [place], [place], [address] , [place] tel: [phone] [facility] No Information Sep-0 4 Yani Coates. [address] [facility], [address] [place] [address], [place], [place], [address], [place]. tel:[phone] Referring Provider: Asad Engel, [place], [address] . tel:[phone] [employer] [facility], [address], [place], [place], [address] , tel: [phone] [facility] Stage 3 chronic kidney disease, unspecified whether stage 3a or 3b CKDType 2 DM with CKD stage 3 and hypertensionH ypertensive chronic kidney disease with stage 1 through stage 4 chronic kidney disease, or unspecified chronic kidney disease Sep-0 4 English Kamara. [address] [place], [address], [place]. [phone] Referring Provider: Asad Engel, [place], [address] . tel:[phone] [facility] [place], [address], [place], [place], [address] , [place] tel: [phone] [facility] No Information Aug-2 4 English Kamara. [address] [place], [address], [place]. tel:[phone] [facility], [address], [place], [place], [address] , [place] tel: [phone] [employer] [facility] No Information Aug-0 4 English Kamara. [address] [place], [address], [place]. tel:[phone] OFFICE [id number]-DWX ANDED [facility], [address], [place], [place], [address] , tel: [phone] [facility] increased urination (chief complaint) Benign prostatic hyperplasia, unspecified whether lower urinary tract symptoms present 4 English Kamara. [address] [place], [address], [place]. tel:[phone] Referring Provider: Asad Engel, [address] [place], [address] . tel:[phone] [facility], [address], [place], [place], [address] , tel: [phone] [facility] No Information 4 English Kamara. [address] [place], [address], [place]. tel:[phone] OFFICE [id number]-VFG-UEH ANDED [facility], [address], [place], [place], [address] , [place] tel: [phone] [facility] ER followup (chief complaint) Acute UTIMass of right testicleBody mass index [BMI] 39.0-39.9, adult June-0 4 Jose Raul Chavezsia. [address] [place], [place], [address], [place]. tel:[phone] Referring Provider: Asad Engel, [address] [place], [address] . tel:[phone] [facility], [address], [place], [place], [address] , [place] tel: [phone] [facility] No Information 4 English Kamara. [address] [place], [address], [place]. tel:[phone] [facility], [address], [place], [place], [address] , tel: [phone] [facility] px (chief complaint)Me dicare preventive (chief complaint) Routine medical examBody mass index [BMI] 39.0-39.9, adultChronic obstructive pulmonary disease, unspecifiedDi abetes mellitus with peripheral circulatory disorderCoron angel artery calcification Atheroscleros is of aortaGastro-e sophageal reflux disease without esophagitisHy perlipidemia, unspecified hyperlipidemi a typeHypertens george chronic kidney disease with stage 1 through stage 4 chronic kidney disease, or unspecified chronic kidney diseaseMild cerebral atrophyStage 3 chronic kidney disease, unspecified whether stage 3a or 3b CKDProstate cancer 4 English Kamara. [address] [place], [place], [address], [place]. tel:[phone] Referring Provider: Asad Engel, [address] [place], [address] . tel:[phone] [facility], [address], [place], [place], [address] , tel: [phone] [facility] No Information 4 Yani Coates. [address] [place] [address], [id number], [place]. tel:[phone] Referring Provider: Asad Engel, [address] [place], [address] . tel:[phone] [facility], [address], [place], [place], [address] , [place] tel:[phone] [facility] Hypertensive chronic kidney disease with stage 1 through stage 4 chronic kidney disease, or unspecified chronic kidney diseaseStage 3 chronic kidney disease, unspecified whether stage 3a or 3b CKDType 2 DM with CKD stage 3 and hypertensionH yperlipidemia , unspecified hyperlipidemi a typeProstate cancer 4 English Kamara. [address] [place], [place], [address], [place]. tel:[phone] Referring Provider: Asad Engel, [address] [place], [address] . tel:[phone] [employer] [facility], [address], [place], [place], [address] , tel:[phone] [employer] [facility] No Information 3 English Chauhan [address] [place], [place], [address], [place]. tel:[phone] Referring Provider: [place], [address] . tel:[phone] [facility], [address], [place], [place], [address] , [place] tel: [phone] [facility] No Information 3 Yani Coates. [address] [facility], [address] [address], [place], [place], [address], [place]. tel:[phone] Referring Provider: [place], [address] . tel:[phone] OFFICE [id number]-NSD-OKV CUATE [facility], [address], [place], [place], [address] , [place] tel: [phone] [facility] Chr conditions (chief complaint) Moderate persistent asthma, uncomplicated Type 2 DM with CKD stage 3 and hypertensionH ypertensive chronic kidney disease with stage 1 through stage 4 chronic kidney disease, or unspecified chronic kidney diseaseStage 3 chronic kidney disease, unspecified whether stage 3a or 3b CKDBody mass index [BMI] 39.0-39.9, adult 3 English Kamara. [address] [place], [address], [place]. tel:[phone] Referring Provider: [place], [address] . tel:[phone] OFFICE FOSGC-HEV-OCZ ANDED [facility], [address], [place], [place], [address] , [place] tel: [phone] [facility] bilat feet swelling (chief complaint) Leg swelling 3 English Kamara. [address] [place], [place], [address], [place]. tel:[phone] Referring Provider: [place], [address] . tel:[phone] [facility], [address], [place], [place], [address] , tel: [phone] [facility] Frequent urination 3 English Kamara. [address] [place], [address], [place]. [phone] Referring Provider: Asad Engel, [place], [address] . tel:[phone] OFFICE TLZLI-DIB-OKN ANDED [facility], [address], [place], [place], [address] , [place] tel: [phone] [facility] Patient encounter (chief complaint) Body mass index [BMI] 40.0-44.9, adultLeg swelling 3 English Kamara. [address] [place], [address], [place]. tel:[phone] Referring Provider: [place], [address] . tel:[phone] [facility], [address], [place], [place], [address] , [place] tel: [phone] [facility] No Information 3 English Kamara. [address] [place], [address], [place]. [phone] [facility], [address], [place], [place], [address] , tel: [phone] [facility] No Information 3 Yani Coates. [address] [place] [address], [address], . tel:[phone] Referring Provider: [place], [address] . tel:[phone] OFFICE TUBBT-VLE-HTR ANDED [facility], [address], [place], [place], [address] , [place] tel: [phone] [facility] feet and ankle swelling (chief complaint) Leg swelling 3 English Kamara. [address] [place], [address], [place]. tel:[phone] Referring Provider: Asad Engel, [address] [place], [address] . tel:[phone] OFFICE WDJQT-ILT-RQD ANDED [employer] [facility], [address], [place], [place], [address] , [place] tel: [phone] [facility] Patient encounter (chief complaint)Me dicare preventive (chief complaint) Diabetes mellitus with peripheral circulatory disorderOSA (obstructive sleep apnea)Dyslipi demia, goal LDL below 100Prostate cancerMild cerebral atrophyStage 3 chronic kidney disease, unspecified whether stage 3a or 3b CKDGastro-eso phageal reflux disease without esophagitisAt herosclerosis of te-moak coronary artery of te-moak heart without angina pectorisAther osclerosis of aortaHistory of CVA (cerebrovascu lar accident)Vladimir gn prostatic hyperplasia, unspecified whether lower urinary tract symptoms presentPerson al history of other venous thrombosis and embolismHyper tensive chronic kidney disease with stage 1 through stage 4 chronic kidney disease, or unspecified chronic kidney diseaseType 2 DM with CKD stage 3 and hypertensionM oderate persistent asthma, uncomplicated Routine medical examBody mass index [BMI] 39.0-39.9, adultAcute nonintractabl e headache, unspecified headache type 3 Jose Raul Bloom. [address] [place], [place], [address], [place]. tel:[phone] Referring Provider: Asad Engel, [address] [place], [address] . tel:[phone] [facility], [address], [place], [place], [address] , [place] tel:[phone] [facility] No Information 3 Yani Coates. [address] [facility], [address] [address], [place], [place], [address], [place]. tel:[phone] Referring Provider: Asad Engel, [address] [place], [address] . tel:[phone] [facility], [address], [place], [place], [address] , tel:[phone] [employer] [facility] History of malignant neoplasm of prostateHyper tensive chronic kidney disease with stage 1 through stage 4 chronic kidney disease, or unspecified chronic kidney diseaseStage 3 chronic kidney disease, unspecified whether stage 3a or 3b CKDDiabetic peripheral angiopathyHyp erlipidemia, unspecified hyperlipidemi a type 3 English Kamara. [address], [address], [place]. tel:[phone] Referring Provider: [place], [address] . tel:[phone] OFFICE [id number]-SCE [facility] [employer] [facility], [address], [place], [place], [address] , tel: [phone] [employer] [facility] Patient encounter (chief complaint) Generalized abdominal pain 3 English Kamara. [place], [address], [place]. [phone] Referring Provider: [place], [address] . tel:[phone] [facility], [address], [place], [place], [address] , tel: [phone] [place] acute visit (chief complaint) Body mass index [BMI] 39.0-39.9, adultOSA (obstructive sleep apnea)Diabete s mellitus with peripheral circulatory disorder 2 English Kamara. [place], [address], [place]. tel:[phone] Referring Provider: [place], [address] . tel:[phone] OFFICE BNMKW-YWR-DGI [facility], [address], [place], [place], [address] , tel: [phone] [place] acute visit (chief complaint) Generalized abdominal pain 2 English Kamara. [place], [address], [place]. tel:[phone] Referring Provider: Asad Engel, [place], [address] . tel:[phone] [facility], [address], [place], [place], [address] , tel:[phone] Radha Urinary frequency 2 [place]ian Asad. [place], [address], . tel:[phone] Referring Provider: Asad Engel, [place], [address] . tel:[phone] [employer], [address], [place], [place], [address] , tel: [phone] Radha No Information 2 [place] Asad. [place], [address], . tel:[phone] Referring Provider: [place], [address] . tel:[phone] OFFICE TPIMK-DCE-GLA CUATE [facility], [address], [place], [place], [address] , tel: [phone] Radha Chronic conditions (chief complaint)Ch ronic Conditions (chief complaint) Diabetes mellitus with peripheral circulatory disorderMorbi d (severe) obesity due to excess caloriesMild cerebral atrophyDyslip idemia, goal LDL below 100Coronary artery calcification Coronary atheroscleros is due to calcified coronary lesionProstat e cancerBody mass index [BMI] 39.0-39.9, adultFrequent urination 2 [place]ian Asad. [place], [address], [place]. tel:[phone] Referring Provider: [place], [address] . tel:[phone] [employer] [facility], [address], [place], [place], [address] , tel: [phone] Radha Hypertension, unspecified typeDiabetic peripheral angiopathy 2 English Kamara. [address] [place], [address], . tel:[phone] Referring Provider: [place], [address] . tel:[phone] [facility], [address], [place], [place], [address] , [place] tel: [phone] Radha No Information 2 English Kamara. [address] [place], [address], [place]. tel:[phone] OFFICE CAMRG-MMD-BRA CUATE [facility], [address], [place], [place], [address] , [place] tel: [phone] [place] Chronic Conditions (chief complaint) Type 2 DM with CKD stage 3 and hypertensionH ypertensive chronic kidney disease with stage 1 through stage 4 chronic kidney disease, or unspecified chronic kidney diseaseStage 3 chronic kidney disease, unspecified whether stage 3a or 3b CKDAtheroscle rosis of aortaAtherosc lerosis of te-moak coronary artery of te-moak heart without angina pectorisBenig n prostatic hyperplasia, unspecified whether lower urinary tract symptoms presentPerson al history of other venous thrombosis and embolismHisto ry of prostate cancerGastro- esophageal reflux disease without esophagitisHi story of CVA (cerebrovascu lar accident)Mode rate persistent asthma, uncomplicated Body mass index [BMI] 39.0-39.9, adult May- 2 Jose Raul Bloom. [address] [place], [place], [address], . tel:[phone] Referring Provider: [place], [address] . tel:[phone] [facility], [address], [place], [place], [address] , [place] tel:[phone] Radha Anemia due to blood loss, chronicEssent ial (primary) hypertensionT ype 2 or unspecified type diabetes mellitus May- 2 English Kamara. [place], [address], . tel:[phone] Referring Provider: [place], [address] . tel:[phone] [facility], [address], [place], [place], [address] , tel: [phone] Radha Urinary frequencyAbno rmal urine findings 1 English Kamara. [place], [address], . [phone] Referring Provider: [place], [address] . tel:[phone] OFFICE EEGJQ-VIS-QTZ [facility], [address], [place], [place], [address] , tel: [phone] Radha chronic conditions (chief complaint) Body mass index [BMI] 39.0-39.9, adultHistory of CVA (cerebrovascu lar accident)Mode rate persistent asthma, uncomplicated Type 2 or unspecified type diabetes mellitus 1 English Kamara. [place], [address], [place]. [phone] Referring Provider: [place], [address] . tel:[phone] OFFICE GJAGZ-VNR-CRP [facility], [address], [place], [place], [address] , tel: [phone] Radha follow up (chief complaint) History of CVA (cerebrovascu lar accident)Ramon plegia as late effect of cerebrovascul ar disease, unspecified cerebrovascul ar disease type, unspecified hemiplegia type, unspecified laterality 1 English Kamara. [place], [address], [place]. tel:[phone] Referring Provider: [place], [address] . tel:[phone] [facility], [address], [place], [place], [address] , tel: [phone] Radha Altered mental status, unspecified altered mental status type 1 English Kamara. [place], [address], [place]. tel:[phone] [employer], [address], [place], [place], [address] , tel: [phone] Radha Abnormal blood chemistry test Nov-0 1 [place] John. [place], [address], . tel:[phone] Referring Provider: [place], [address] . tel:[phone] OFFICE BTOZW-PIM-PFA ANDED [facility], [address], [place], [place], [address] , tel: [phone] Radha ams (chief complaint) Body mass index [BMI] 39.0-39.9, adultAltered mental status, unspecified altered mental status type 1 English KamaraKyle [place]idd [place], [address], . [phone] Referring Provider: [place], [address] . tel:[phone] [employer], [address], [place], [place], [address] , tel: [phone] Radha px (chief complaint)Me dicare preventive (chief complaint) Body mass index [BMI] 40.0-44.9, adultMorbid (severe) obesity due to excess caloriesEncou nter for general adult medical examination without abnormal findingsType 2 or unspecified type diabetes mellitusPerso nal history of other venous thrombosis and embolismHisto ry of prostate cancerModerat e persistent asthma, uncomplicated Gastro-esopha geal reflux disease without esophagitisHy pertension, unspecified type 1 [place] John. [place], [address], [place]. tel:[phone] Referring Provider: [place], [address] . tel:[phone] [employer], [address], [place], [place], [address] , [place] tel: [phone] [place] Hypertension, unspecified typeDiabetic peripheral angiopathyDys lipidemia, goal LDL below 100Encounter for screening for malignant neoplasm of prostate 1 English Kamara. [address] [place], [place], [address], [place]. tel:[phone] Referring Provider: Asad Engel, [address] [place], [address] . tel:[phone] OFFICE RZSTH-WCK-HUM [facility], [address], [place], [place], [address] , [place] tel: [phone] [facility] Asthma Allergy Mar[place] asthma (chief complaint)As thma-control (chief complaint)al lergies (chief complaint)GE RD (chief complaint) Moderate persistent asthma, uncomplicated Allergic rhinitis due to pollenAllergi c rhinitis due to dust miteGastro-es ophageal reflux disease without esophagitis 1 Yoseph Burks. [address] [place] [address], [id number], . tel:[phone] Referring Provider: Vitaliy Hameed, [address] [place] [address], [address] . tel:[phone] [facility], [address] [facility], [place], [place], [address] , tel:[phone] [facility] Asthma Allergy Mar[place] No Information 1 Yoseph Burks. [address] [place] [address], [id number], . tel:[phone] OFFICE ZUCVL-QWO-JLL [facility], [address], [place], [place], [address] , [place] tel:[phone] [place] 4 mo followup of chronic conditions (chief complaint)Ch ronic Conditions (chief complaint) Moderate persistent asthma, uncomplicated Personal history of other venous thrombosis and embolismType 2 DM with CKD stage 3 and hypertensionH ypertensive chronic kidney disease with stage 1 through stage 4 chronic kidney disease, or unspecified chronic kidney diseaseAthero sclerosis of te-moak coronary artery of te-moak heart without angina pectorisAther osclerosis of aortaHyperlip idemia, unspecified hyperlipidemi a typeGastro-es ophageal reflux disease without esophagitisSt age 4 chronic kidney disease, unspecified whether stage 3a or 3b CKDBenign prostatic hyperplasia, unspecified whether lower urinary tract symptoms presentHistor y of prostate cancerBody mass index (BMI) 39.0-39.9, adultAbdomina l bloatingRecta l itching 1 Jose Raul Bloom. [address] [place], [place], [address], [place]. tel:[phone] Referring Provider: Asad Engel, [place], [address] . tel:[phone] OFFICE FIBEJ-KJW-ZVS [facility], [address], [place], [place], [address] , [place] tel:[phone] [facility] Asthma Allergy Mar[place] asthma (chief complaint)As thma-control (chief complaint)al lergies (chief complaint)GE RD (chief complaint) Moderate persistent asthma, uncomplicated Allergic rhinitis due to pollenAllergi c rhinitis due to dust miteGastro-es ophageal reflux disease without esophagitis 1 Yoseph Burks. [address] [place] [address], [address], [id number], [place]. tel:[phone] Referring Provider: [place], [address] . tel:[phone] OFFICE GNPED-KBE-UKT [facility], [address], [place], [place], [address] , tel: [phone] [place] chronic conditions (chief complaint) Body mass index (BMI) 40.0-44.9, adultMorbid (severe) obesity due to excess caloriesModer ate persistent asthma, uncomplicated Personal history of other venous thrombosis and embolismType 2 or unspecified type diabetes mellitusEssen tial hypertension 1 English Kamara. [address] [place] [address], [id number], [place]. tel:[phone] Referring Provider: [place], [address] . tel:[phone] [facility], [address], [place], [place], [address] , tel: [phone] [place] Diabetic peripheral angiopathyEss ential hypertension 1 English Kamara. [address] [place], [address], . tel:[phone] Referring Provider: Asad Engel, [address] [place], [address] . tel:[phone] [employer], [address], [place], [place], [address] , tel: [phone] [place] History of total left knee replacement (TKR)Chronic knee pain after total replacement of left knee joint 0 English Kamara. [address] [place], [address], [place]. [phone] Referring Provider: Asad Engel, [address] [place], [address] . tel:[phone] [employer], [address], [place], [place], [address] , tel: [phone] [place] Medicare preventive (chief complaint)AW V (chief complaint) Encounter for general adult medical examination without abnormal findingsGastr o-esophageal reflux disease without esophagitisMo derate persistent asthma, uncomplicated Hypertensive chronic kidney disease with stage 1 through stage 4 chronic kidney disease, or unspecified chronic kidney diseasePerson al history of other venous thrombosis and embolismConst ipation, unspecified constipation typeStage 3 chronic kidney disease, unspecified whether stage 3a or 3b CKDAtheroscle rosis of te-moak coronary artery of te-moak heart without angina pectorisAther osclerosis of aortaPrimary open-angle glaucoma, bilateral, mild stageHyperlip idemia, unspecified hyperlipidemi a typeType 2 DM with CKD stage 3 and hypertensionE levated PSABenign prostatic hyperplasia, unspecified whether lower urinary tract symptoms presentBody mass index (BMI) 40.0-44.9, adultMorbid (severe) obesity due to excess caloriesHyper pigmentation of skin 0 Jose Raul Bloom. [address] [place], [place], [address], [place]. tel:[phone] Referring Provider: Asad Engel, [place], [address] . tel:[phone] [facility], [address] [facility], [place], [place], [address] , tel:[phone] Radha Essential hypertensionD iabetic peripheral angiopathyOth er and unspecified hyperlipidemi aScreening for malignant neoplasm of prostate Nov- 0 English Kamara. [place], [address], [place]. tel:[phone] Referring Provider: Asad Engel, [place], [address] . tel:[phone] OFFICE ZHDGY-PYU-BQW [facility], [address], [place], [place], [address] , tel: [phone] [facility] Asthma Allergy Mar[place] asthma (chief complaint)As thma-control (chief complaint)al lergies (chief complaint)GE RD (chief complaint) Moderate persistent asthma, uncomplicated Allergic rhinitis due to pollenAllergi c rhinitis due to dust miteGastro-es ophageal reflux disease without esophagitis Oct- 0 Yoseph Burks. [address] [place] [address], [id number], . tel:[phone] Referring Provider: [place], [address] . tel:[phone] OFFICE DURSW-JDI-FUB [facility], [address] [facility], [place], [place], [address] , tel: [phone] Radha 3 month (chief complaint) Body mass index (BMI) 38.0-38.9, adultType 2 or unspecified type diabetes mellitusEssen tial (primary) hypertensionM oderate persistent asthma, unspecified whether complicated Harjinder- 0 English Kamara. [place], [address], [place]. tel:[phone] Referring Provider: [place], [address] . tel:[phone] [employer], [address], [place], [place], [address] , [place] tel: [phone] Radha Type 2 or unspecified type diabetes mellitusEssen tial (primary) hypertension Harjinder- 0 English Kamara. [address] [place] [address], [id number], . tel:[phone] Referring Provider: Asad Engel, [place], [address] . tel:[phone] [employer], [address], [place], [place], [address] , [place] tel: [phone] Radha Anemia due to blood loss, chronicDiabet ic peripheral angiopathy 0 English Kamara. [address] [place], [address], . [phone] Referring Provider: [place], [address] . tel:[phone] TELEPHONE E&M BY A PHYSICIAN; 11-20 MINUTES [employer], [address], [place], [place], [address] , tel: [phone] Radha telehealth (chief complaint)6 month f/u (chief complaint) Hypertensive chronic kidney disease with stage 1 through stage 4 chronic kidney disease, or unspecified chronic kidney diseaseStage 3 chronic kidney diseaseType 2 diabetes w diabetic peripheral angiopath w/o gangreneGastr o-esophageal reflux disease without esophagitisMo derate persistent asthma, unspecified whether complicatedUn specified glaucomaPerso nal history of other venous thrombosis and embolismConst ipation, unspecified constipation type 0 Jose Raul Bloom. [address] [place], [place], [address], [place]. tel:[phone] Referring Provider: [place], [address] . tel:[phone] [facility]- 14 Days Of Discharge [employer], [address], [place], [place], [address] , tel: [phone] Radha hopsital fu (chief complaint) Body mass index (BMI) 38.0-38.9, adultOsteoart hritis of left knee, unspecified osteoarthriti s typeGERD without esophagitisOS A (obstructive sleep apnea) 0 English Kamara. [place], [address], . tel:[phone] Referring Provider: Asad Engel, [place], [address] . tel:[phone] OFFICE AMKJX-YCH-RZX [facility], [address], [place], [place], [address] , [place] tel: [phone] Radha surgical clearance (chief complaint) Body mass index (BMI) 40.0-44.9, adultMorbid (severe) obesity due to excess caloriesChron ic pain of left kneePre-opera tive clearanceUnsp ecified essential hypertensionD iabetes mellitus with peripheral circulatory disorderEncnt r for general adult medical exam w/o abnormal findings 0 Jose Raul Bloom. [address] [place], [place], [address], [place]. tel:[phone] Referring Provider: [place], [address] . tel:[phone] [facility]ICE [facility], [address], [place], [place], [address] , [place] tel: [phone] Radha increased indigestion (chief complaint) Morbid (severe) obesity due to excess caloriesRight upper quadrant abdominal painBody mass index (BMI) 40.0-44.9, adult 0 English Kamara. [place], [address], [place]. tel:[phone] Referring Provider: [place], [address] . tel:[phone] OFFICE WRQXT-MGN-FJU [facility], [address], [place], [place], [address] , tel: [phone] Radha px (chief complaint) Body mass index (BMI) 40.0-44.9, adultMorbid (severe) obesity due to excess caloriesEncou nter for general adult medical examination without abnormal findingsDiabe shiela mellitus with peripheral circulatory disorderUnspe cified essential hypertensionM oderate persistent asthma with (acute) exacerbationG astroesophage al reflux disease, esophagitis presence not specifiedPers onal history of other venous thrombosis and embolismHx of malignant neoplasm of prostate English Kamara. [place], [address], . tel:[phone] Referring Provider: [place], [address] . tel:[phone] [facility], [address], [place], [place], [address] , tel: [phone] Radha Hyperlipidemi a, unspecified hyperlipidemi a typeAnemia, unspecified typeUnspecifi ed essential hypertensionL yoanna term use of drugDiabetes mellitus with peripheral circulatory disorderProst ate cancer screeningEnco unter for general adult medical examination without abnormal findings English Kamara. [place], [address], [place]. tel:[phone] Referring Provider: [place], [address] . tel:[phone] OFFICE ARRKF-RKN-MAT ANDED [facility], [address], [place], [place], [address] , tel: [phone] Radha blood tinged mucus and cough (chief complaint) Generalized abdominal painHemoptysi sBody mass index (BMI) 40.0-44.9, adultMorbid (severe) obesity due to excess calories 9 Jose Raul Bloom. [address] [place], [place], [address], . tel:[phone] Referring Provider: [place], [address] . tel:[phone] OFFICE TJUNQ-ASA-GIH CUATE [facility], [address], [place], [place], [address] , tel: [phone] [facility] Asthma Allergy Mar[place] asthma (chief complaint)As thma-control (chief complaint)al lergies (chief complaint)GE RD (chief complaint) Moderate persistent asthma with (acute) exacerbationR estrictive airway diseaseAllerg ic rhinitis due to pollenGastroe sophageal reflux disease, esophagitis presence not specified Oct- Yoseph Burks. [address] [place] [address], [id number], . [phone] Referring Provider: Asad Engel, [place], [address] . tel:[phone] OFFICE ZBCUL-QXV-BTR [facility], [address], [place], [place], [address] , tel: [phone] [facility] asthma (chief complaint)al lergies (chief complaint)GE RD (chief complaint)As thma-control (chief complaint) Moderate persistent asthma, uncomplicated Restrictive airway diseaseGastro esophageal reflux disease, esophagitis presence not specifiedAlle rgic rhinitis due to pollenAllergi c rhinitis due to dust miteTinnitus of left ear Yoseph Burks. [address] [place] [address], [id number], . [phone] Referring Provider: [place], [address] . tel:[phone] OFFICE KEMLB-MIL-QQW [facility], [address] [place] [address], [address] , tel: [phone] [place] chronic conditions (chief complaint) Body mass index (BMI) 40.0-44.9, adultMorbid (severe) obesity due to excess caloriesChron ic obstructive pulmonary disease, unspecifiedPe rsonal history of other venous thrombosis and embolismDiabe shiela mellitus with peripheral circulatory disorderSkin lesions English Kamara. [place], [address], . tel:[phone] Referring Provider: [place], [address] . tel:[phone] [employer], [address], [place], [place], [address] , tel: [phone] [place] Body mass index (BMI) 39.0-39.9, adultModerate persistent asthma, uncomplicated Personal history of other venous thrombosis and embolismGastr oesophageal reflux disease, esophagitis presence not specifiedDiab etes mellitus with peripheral circulatory disorderChron ic obstructive pulmonary disease, unspecifiedRe troperitoneal lymphadenopat hyPersonal history of malignant neoplasm of prostate 9 English Kamara. [address] [place], [address], [place]. tel:[phone] Referring Provider: [place], [address] . tel:[phone] [employer], [address], [place], [place], [address] , tel: [phone] [place] hosp f/u GI bleed (chief complaint) Gastrointesti nal hemorrhage, unspecified gastrointesti nal hemorrhage typePersonal history of other venous thrombosis and embolismAnemi a, unspecified type 9 English Kamara. [place], [address], [place]. tel:[phone] Referring Provider: [place], [address] . tel:[phone] [employer], [address], [place], [place], [address] , tel: [phone] [facility] Moderate persistent asthma, uncomplicated Allergic rhinitis due to pollenAllergi c rhinitis due to dust miteGastroeso phageal reflux disease, esophagitis presence not specified 8 Yoseph Burks. [address] [facility], [address], [id number], . tel:[phone] Referring Provider: [place], [address] . tel:[phone] [employer], [address], [place], [place], [address] , [place] tel: [phone] [place] Unspecified essential hypertensionM oderate persistent asthma, uncomplicated Diabetes mellitus with peripheral circulatory disorder 8 Burundian Asad. [place], [address], [place]. [phone] Referring Provider: Asad Engel, [address] [place], [address] . tel:[phone] [employer], [address], [place], [place], [address] , tel: [phone] [place] Diabetes mellitus with peripheral circulatory disorderGastr oesophageal reflux disease, esophagitis presence not specifiedUnsp ecified essential hypertensionL yoanna term use of drugHyperlipi demia, unspecified hyperlipidemi a typeCreatinin e elevation 8 [place]ian Asad. [place], [address], [place]. tel:[phone] Referring Provider: Asad Engel, [place], [address] . tel:[phone] [employer], [address], [place], [place], [address] , [place] tel: [phone] [facility] Moderate persistent asthma, uncomplicated Allergic rhinitis due to pollenAllergi c rhinitis due to dust miteGastro-es ophageal reflux disease without esophagitis 8 Filibertodawna WashburnTeri. [address] [place] [address], [id number], [place]. tel:[phone] Referring Provider: Vitaliy Hameed, [address] [place] [address], [address] . tel:[phone] [employer], [address], [place], [place], [address] , [place] tel: [phone] [place] Encounter for Medicare annual wellness examEssential (primary) hypertensionT ype 2 diabetes w diabetic peripheral angiopath w/o gangreneOther hyperlipidemi aChronic obstructive pulmonary disease, unspecifiedMo rbid (severe) obesity due to excess caloriesPerso nal history of malignant neoplasm of prostatePolyo steoarthritis , unspecifiedGa stro-esophage al reflux disease without esophagitis 8 [facility] Bobbi. [address] [place], [place], [address]. tel:[phone] Referring Provider: Bobbi Jiang, [address] [place], [address] . tel:[phone] [id number] [facility], [address], [place], [place], [address] , tel: [phone] [place] Type 2 diabetes mellitus without complication, without long-term current use of insulinGastro -esophageal reflux disease without esophagitisDi abetic gastropathyDi sease of stomach and duodenum, unspecifiedH. pylori duodenitis 8 Jiang Bobbi. [address] [place], [place], [address]. tel:[phone] Referring Provider: Bobbi Jiang, [place], [address] . tel:[phone] [facility], [address], [place], [place], [address] , tel: [phone] [place] Type 2 diabetes w diabetic peripheral angiopath w/o gangreneEssen tial (primary) hypertensionG candy-esophag eal reflux disease without esophagitisPo lyosteoarthri tis, unspecifiedUr inary tract infection, site not specified 8 [facility] Bobbi. [address], [place], [address]. tel:[phone] Referring Provider: Bobbi Jiang, [place], [address] . tel:[phone] [facility], [address], [place], [place], [address] , tel: [phone] [place] Type 2 diabetes mellitus without complication, without long-term current use of insulinOther and unspecified hyperlipidemi aLong term use of drug 8 [facility] Bobbi. [address] [place], [place], [address]. tel:[phone] Referring Provider: Bobbi Jiang, [address] [place], [address] . tel:[phone] [facility], [address], [place], [place], [address] , tel: [phone] [place] Essential (primary) hypertensionP ersonal history of other venous thrombosis and embolismChron ic obstructive pulmonary disease, unspecifiedTy pe 2 diabetes w diabetic peripheral angiopath w/o gangreneOther hyperlipidemi aMorbid (severe) obesity due to excess caloriesGastr o-esophageal reflux disease without esophagitisAr thritis of knee Feb-1 8 [facility] Bobbi. [address] [place] [address], [id number]. tel:[phone] Referring Provider: Bobbi Jiang, [address] [place] [address], [address] . tel:[phone] [facility], [address], [place], [place], [address] , tel: [phone] [facility] Allergic rhinitis due to pollenAllergi c rhinitis due to dust miteModerate persistent asthma without complicationG candy-esophag eal reflux disease without esophagitis Feb-0 8 Alfonso Williamson. [address] [place] [address], [id number], . tel:[phone] Referring Provider: Vitaliy Hameed, [address] [place] [address], [address] . tel:[phone] [facility], [address], [place], [place], [address] , [place] tel: [phone] [place] Abdominal pain, unspecified abdominal locationHemat uria, unspecified typeGastro-es ophageal reflux disease without esophagitisAb normal urine findings Feb-0 8 Deidre Liuh. [address] [place], [place], [address]. tel:[phone] Referring Provider: Bobbi Jiang, [place], [address] . tel:[phone] [employer], [address], [place], [place], [address] , [place] tel: [phone] Radha Gastroesophag eal reflux disease without esophagitisPe riumbilical abdominal painDM w/o complication type II, uncontrolled 8 Alex Jelly. [address] [place], [address], [place]. tel:[phone] Referring Provider: Bobbi Jiang, [address] [place], [address] . tel:[phone] [employer], [address], [place], [place], [address] , [place] tel: [phone] Radha Essential (primary) hypertensionT ype 2 diabetes w diabetic peripheral angiopath w/o gangreneOther hyperlipidemi aChronic obstructive pulmonary disease, unspecifiedPe rsonal history of other venous thrombosis and embolism 7 Deidre Martines. [address], [place], [address]. tel:[phone] Referring Provider: Bobbi Jiang, [address] [place], [address] . tel:[phone] [employer], [address], [place], [place], [address] , [place] tel: [phone] Radha DM w/o complication type II, uncontrolledE ssential (primary) hypertension 7 Deidre Martines. [address] [place], [place], [address]. tel:[phone] Referring Provider: Bobbi Jiang, [address] [place], [address] . tel:[phone] [employer], [address], [place], [place], [address] , [place] tel: [phone] [facility] Acute non-recurrent sinusitis, unspecified locationChron ic obstructive pulmonary disease, unspecified Oct- 7 Alfonso Williamson. [address] [facility], [address] [address], [place], [place], [address], [place]. tel:[phone] Referring Provider: Vitaliy Hameed, [address] [address], [place], [address] . tel:[phone] [employer], [address], [place], [place], [address] , tel: [phone] [facility] Moderate persistent asthma without complicationA llergic rhinitis due to pollenAllergi c rhinitis due to dust miteGastro-es ophageal reflux disease without esophagitis Alfonso Williamson. [address] [facility], [address] [address], [place], [place], [address], . tel:[phone] Referring Provider: Vitaliy Hameed, [address] [place] [address], [place], [address] . tel:[phone] [employer], [address], [place], [place], [address] , tel: [phone] [place] Essential (primary) hypertensionO ther hyperlipidemi aType 2 diabetes w diabetic peripheral angiopath w/o gangreneChron ic obstructive pulmonary disease, unspecifiedPe rsonal history of other venous thrombosis and embolism Deidre Martines. [address], [place], [address]. tel:[phone] Referring Provider: Bobbi Jiang, [address] [place], [address] . tel:[phone] [employer], [address], [place], [place], [address] , [place] tel:[phone] [place] Dyslipidemia, goal LDL below 100Diabetes mellitus with peripheral circulatory disorderLong term use of drug Deidre Martines. [address] [place], [place], [address]. tel:[phone] Referring Provider: Bobbi Jiang, [address] [place], [address] . tel:[phone] [employer], [address], [place], [place], [address] , [place] tel: [phone] [facility] Viral URIOther viral agents as the cause of diseases classified elsewhereMode rate persistent asthma without complicationG candy-esophag eal reflux disease without esophagitis 7 Yoseph Burks. [address] [facility], [facility] [address], [place], [place], [address], [place]. [phone] Referring Provider: [place], [address] . tel:[phone] [employer], [address], [place], [place], [address] , [place] tel: [phone] Radha Encounter for Medicare annual wellness examEssential (primary) hypertensionO ther hyperlipidemi aType 2 diabetes w diabetic peripheral angiopath w/o gangreneChron ic obstructive pulmonary disease, unspecifiedMo rbid (severe) obesity due to excess caloriesPerso nal history of other venous thrombosis and embolismGastr o-esophageal reflux disease without esophagitisPe rsonal history of malignant neoplasm of prostate Deidre Martines. [address] [place], [place], [address]. [phone] Referring Provider: [place], [address] . tel:[phone] [employer], [address], [place], [place], [address] , [place] tel: [phone] [place] Diabetes mellitus with peripheral circulatory disorderDysli pidemia, goal LDL below 100Secondary hypertension, unspecifiedEn counter for long-term (current) use of other medications Deidre Martines. [address] [place], [place], [address]. tel:[phone] Referring Provider: [place], [address] . tel:[phone] [employer], [address], [place], [place], [address] , [place] tel: [phone] [facility] Moderate persistent asthma without complicationA llergic rhinitis due to pollenAllergi c rhinitis due to dust miteGastro-es ophageal reflux disease without esophagitis 7 Alfonso Teri. [address] [facility], [address], [address], . tel:[phone] Referring Provider: Vitaliy Hameed, [address], [address] . tel:[phone] [employer], [address], [place], [place], [address] , tel: [phone] [place] Essential (primary) hypertensionO ther hyperlipidemi aType 2 diabetes w diabetic peripheral angiopath w/o gangreneChron ic obstructive pulmonary disease, unspecifiedGa stro-esophage al reflux disease without esophagitisPe rsonal history of other venous thrombosis and embolismErect ile dysfunction, unspecified erectile dysfunction type 6 Jiang Bobbi. [address] [place], [place], [address]. tel:[phone] Referring Provider: Bobbi Jiang, [address] [place], [address] . 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 [address] [place], [place], [address]. tel:[phone] Referring Provider: Bobbi Jiang, [address] [place], [address] . tel:[phone] [employer], [address], [place], [place], [address] , [place] tel:[phone] [facility] Allergic rhinitis due to pollenAllergi c rhinitis due to dust miteGastro-es ophageal reflux disease without esophagitisMo derate persistent asthma without complication 6 Filibertodawna WashburnTeri. [address] [facility], [address], [address], [place]. tel:[phone] Referring Provider: Vitaliy Hameed, [address] [facility] [address], [place], [address] . tel:[phone] [employer], [address], [place], [place], [address] , [place] tel: [phone] Radha Essential (primary) hypertensionC hronic obstructive pulmonary disease, unspecifiedOt her hyperlipidemi aType 2 diabetes w diabetic peripheral angiopath w/o gangrenePerso nal history of other venous thrombosis and embolism 6 Jiang Bobbi. [address] [place], [place], [address]. tel:[phone] Referring Provider: Bobbi Jiang, [address] [place], [address] . tel:[phone] [employer], [address], [place], [place], [address] , [place] tel: [phone] Radha Lumbar spine strain, initial encounter Jiangdavid Luih. [address] [place], [place], [address]. tel:[phone] Referring Provider: Bobbi Jiang, [place], [address] . tel:[phone] [employer], [address], [place], [place], [address] , [place] tel: [phone] Radha Gastro-esopha geal reflux disease without esophagitisLo w back strain, initial encounter 6 Jiangdavid Martines. [address] [place], [place], [address]. tel:[phone] Referring Provider: Bobbi Jiang, [place], [address] . tel:[phone] [employer], [address], [place], [place], [address] , [place] tel: [phone] Radha Encounter for Medicare annual wellness examEssential (primary) hypertensionO ther hyperlipidemi aType 2 diabetes mellitus with diabetic peripheral angiopathy without gangreneChron ic obstructive pulmonary disease, unspecifiedGa stro-esophage al reflux disease without esophagitisPe rsonal history of other venous thrombosis and embolismMorbi d (severe) obesity due to excess caloriesPolyo steoarthritis , unspecifiedPe rsonal history of malignant neoplasm of prostateSpeci al screening for malignant neoplasm of colon Apr-0 6 Deidre Martines. [address] [place], [place], [address]. tel:[phone] Referring Provider: Bobbi Jiang, [address] [place], [address] . tel:[phone] [employer], [address], [place], [place], [address] , tel:[phone] [facility] Moderate persistent asthma, uncomplicated Allergic rhinitis due to pollenOther allergic rhinitisGastr o-esophageal reflux disease without esophagitisAc burt URI 6 Alfonso Williamson. [address] [place] [address], [address], . tel:[phone] Referring Provider: Vitaliy Hameed, [address], [address] . tel:[phone] [employer], [address], [place], [place], [address] , [phone] [place] ItchingUrinar y frequency 5 Deidre Martines. [address] [place], [place], [address]. tel:[phone] Referring Provider: Bobbi Jiang, [address] [place], [address] . tel:[phone] [employer], [address], [place], [place], [address] , [place] [phone] [place] Urinary frequencyLeft -sided low back pain without sciaticaGastr o-esophageal reflux disease without esophagitis 5 Deidre Martines. [address] [place], [place], [address]. tel:[phone] Referring Provider: Bobbi Jiang, [address] [place], [address] . tel:[phone] [facility], [address], [place], [place], [address] , [place] tel: [phone] Radha Essential (primary) hypertensionO ther hyperlipidemi aGastro-esoph ageal reflux disease without esophagitisPe rsonal history of other venous thrombosis and embolismChron ic obstructive pulmonary disease, unspecifiedMo rbid (severe) obesity due to excess caloriesPolyo steoarthritis , unspecifiedTy pe 2 diabetes mellitus with other circulatory complications Type 2 diabetes mellitus with diabetic peripheral angiopathy without gangreneEncou nter for immunization 5 Deidre Martines. [address], [place], [address]. tel:[phone] Referring Provider: Bobbi Jiang, [address] [place], [address] . tel:[phone] [facility], [address], [place], [place], [address] , [place] tel: [phone] Radha Encounter for long-term (current) use of other medicationsOt her and unspecified hyperlipidemi aDM w/o complication type II 5 Deidre Martines. [address] [place], [place], [address]. tel:[phone] Referring Provider: Bobbi Jiang, [address] [place], [address] . tel:[phone] [facility], [address], [place], [place], [address] , [place] tel:[phone] [facility] Moderate persistent asthma, uncomplicated Other allergic rhinitisGastr o-esophageal reflux disease without esophagitis 5 Alfonso Williamson. [address] [place] [address], [address], [place]. tel:[phone] Referring Provider: Vitaliy Hameed, [address] [place] [address], [address] . tel:[phone] [employer], [address], [place], [place], [address] , [place] tel: [phone] [place] Unspecified essential hypertensionD iabetes mellitus without mention of complication, type II or unspecified type, uncontrolledO ther and unspecified hyperlipidemi aMorbid obesityCHRONI C OBSTRUCTIVE ASTHMA, UNSPECIFIEDPe rsonal history of thrombophlebi tisGERDOsteoa rthrosis, generalized, involving unspecified site 5 Deidre Martines. [address] [place], [place], [address]. tel:[phone] Referring Provider: Bobbi Jiang, [address] [place], [address] . tel:[phone] [employer], [address], [place], [place], [address] , [place] tel: [phone] [facility] INTRINSIC ASTHMA, WITH (ACUTE) EXACERBATIONA llergic rhinitis due to other allergen Harjinder-0 5 Yoseph Burks. [address] [place] [address], [address], [place]. tel:[phone] Referring Provider: Bobbi Jiang, [address] [place], [address] . tel:[phone] [employer], [address], [place], [place], [address] , [place] tel: [phone] [facility] CHRONIC OBSTRUCTIVE ASTHMA, UNSPECIFIEDAl lergic rhinitis due to other allergenGERD 5 Alfonso Williamson. [address], [address], [place]. [phone] Referring Provider: Vitaliy Hameed, [address] [place] [address], [address] . tel:[phone] [employer], [address], [place], [place], [address] , [place] tel: [phone] [place] Medicare annual wellness visit, subsequentUns pecified essential hypertensionC HRONIC OBSTRUCTIVE ASTHMA, UNSPECIFIEDOt her and unspecified hyperlipidemi aDM w/o complication type IIMorbid obesityPerson al history of thrombophlebi tisHX-PROSTAT IC MALIGNANCYGER DSpecial screening for malignant neoplasm of colonEncounte r for long-term (current) use of other medications 5 Deidre Martines. [address] [place], [place], [address]. tel:[phone] Referring Provider: Bobbi Jiang, [address] [place], [address] . tel:[phone] [employer], [address], [place], [place], [address] , tel: [phone] Radha Encounter for long-term (current) use of other medicationsOt her and unspecified hyperlipidemi aDM w/o complication type IIPersonal history of malignant neoplasm of prostateHTN (hypertension ) 5 Deidre Luih. [address] [place], [place], [address]. tel:[phone] Referring Provider: Bobbi Jiang, [address] [place], [address] . tel:[phone] [employer], [address], [place], [place], [address] , [place] tel: [phone] [facility] INTRINSIC ASTHMA NOSAllergic rhinitis due to other allergenGERD 5 Alfonso Williamson. [address] [place] [address], [id number], [place]. tel:[phone] Referring Provider: Vitaliy Hameed, [address] [place] [address], [address] . tel:[phone] [employer], [address], [place], [place], [address] , [place] tel: [phone] [place] Other and unspecified hyperlipidemi aDiabetes mellitus without mention of complication, type II or unspecified type, not stated as uncontrolledM orbid obesityPerson al history of thrombophlebi tisCHRONIC OBSTRUCTIVE ASTHMA, UNSPECIFIED 4 Deidre Luih. [address] [place], [place], [address]. tel:[phone] Referring Provider: Bobbi Jiang, [place], [address] . tel:[phone] [facility], [address], [place], [place], [address] , [place] tel: [phone] [place] Encounter for long-term (current) use of other medicationsHT N (hypertension )Other and unspecified hyperlipidemi aDM w/o complication type II 4 Deidre Luih. [address] [place], [place], [address]. tel:[phone] Referring Provider: Bobbi Jiang, [place], [address] . tel:[phone] [employer], [address], [place], [place], [address] , [place] tel: [phone] Radha HemorrhoidsGE RDCHEST PAIN NEC 4 Deidre Luih. [address] [place], [place], [address]. tel:[phone] Referring Provider: Bobbi Jiang, [place], [address] . [phone] [employer], [address], [place], [place], [address] , [place] tel: [phone] [facility] CHRONIC OBSTRUCTIVE ASTHMA, UNSPECIFIEDAl lergic rhinitis due to other allergenGERD 4 Yoseph Burks. [address] [facility], [address] [address], [place], [place], [address], [place]. tel:[phone] Referring Provider: [place], [address] . tel:[phone] [employer], [address], [place], [place], [address] , [place] tel: [phone] Radha Tendonitis of shoulder, left 4 Jiang Bobbi. [address] [place], [place], [address]. [phone] Referring Provider: Bobbi Jiang, [place], [address] . tel:[phone] [facility], [address], [place], [place], [address] , tel: [phone] [place] HTNOther and unspecified hyperlipidemi aDiabetes Mellitus Type 2, Uncomplicated Obesity, MorbidVaricos e veins of lower extremities with ulcer 4 Jiang Bobbi. [address] [place], [place], [address]. tel:[phone] Referring Provider: Bobbi Jiang, [place], [address] . tel:[phone] [facility], [address], [place], [place], [address] , [place] tel: [phone] [place] Venous stasis ulcer of lower extremity 4 Jiang Bobbi. [address] [place], [place], [address]. tel:[phone] Referring Provider: Bobbi Jiang, [place], [address] . [phone] [facility], [address], [place], [place], [address] , [place] tel: [phone] [place] Leg ulcerFishhook injury to fingerNEED FOR PROPHYLACTIC VACCINATION WITH COMBINED DIPHTHERIA-TE TANUS-PERTUSS IS (DTP) (DTAP) VACCINE 4 [facility] Bobbi. [address] [place], [place], [address]. tel:[phone] Referring Provider: Bobbi Jiang, [place], [address] . tel:[phone] [facility], [address], [place], [place], [address] , tel: [phone] [place] History of fall/At Risk For FallingRoutin e Medical ExamHTNDiabet es Mellitus, Adult Onset, UncontrolledO ther and unspecified hyperlipidemi aCHRONIC OBSTRUCTIVE ASTHMA, UNSPECIFIEDOb esity, MorbidPersona l history of thrombophlebi tisPersonal history of malignant neoplasm of prostate 4 Deidre Martines. [address] [place], [place], [address]. tel:[phone] Referring Provider: Bobbi Jiang, [address] [place], [address] . tel:[phone] [employer], [address], [place], [place], [address] , [place] tel: [phone] [facility] CHRONIC OBSTRUCTIVE ASTHMA, UNSPECIFIEDAl lergic rhinitis, cause unspecifiedGE RD 4 Yoseph Burks. [address] [place] [address], [address], [address], [place]. [phone] Referring Provider: Bobbi Jiang, [address] [place], [address] . tel:[phone] [employer], [address], [place], [place], [address] , [place] tel: [phone] [place] Candidiasis of perineumSnori ng 3 Deidre Martines. [address] [place], [place], [address]. tel:[phone] Referring Provider: Bobbi Jiang, [address] [place], [address] . tel:[phone] [employer], [address], [place], [place], [address] , [place] tel: [phone] [place] Other and unspecified hyperlipidemi aHTNDiabetes Mellitus Type 2, Uncomplicated Obesity, Morbid 3 Deidre Martines. [address] [place], [place], [address]. tel:[phone] Referring Provider: Bobbi Jiang, [address] [place], [address] . tel:[phone] [employer], [address], [place], [place], [address] , [place] tel: [phone] Radha No Information 3 Deidre Martines. [address] [place], [place], [address]. tel:[phone] [employer], [address], [place], [place], [address] , [place] tel: [phone] [facility] Epistaxis Oct-0 3 Yose[address] Burks[address] [place] [address], [address], [place]. tel:[phone] Referring Provider: Bobbi Jiang, [address] [place], [address] . tel:[phone] [employer], [address], [place], [place], [address] , tel: [phone] [facility] CHRONIC OBSTRUCTIVE ASTHMA, UNSPECIFIEDAl lergic rhinitis, cause unspecifiedEs ophageal reflux 3 Yose[address] Burks. [address] [place] [address], [address], [place]. tel:[phone] Referring Provider: Bobbi Jiang, [address] [place], [address] . tel:[phone] [employer], [address], [place], [place], [address] , [place] tel: [phone] Radha No Information 3 Deidre Martines. [address] [place], [address]. tel:[phone] [employer], [address], [place], [place], [address] , [place] tel: [phone] Radha Long-term (current) use of other medicationsOt her and unspecified hyperlipidemi aDiabetes mellitus without mention of complication, type II or unspecified type, uncontrolled Jul- 3 Deidre Martines. [address] [place], [place], [address]. tel:[phone] Referring Provider: Bobbi Jiang, [address] [place], [address] . tel:[phone] [facility] [address], [place], [place], [address] , tel: [phone] Radha Blood in stoolAbdomina l pain Apr-0 3 Deidre Martines. [address] [place], [place], [address]. tel:[phone] Referring Provider: Bobbi Jiang, [address] [place], [address] . tel:[phone] [facility] [address], [place], [place], [address] , tel: [phone] [place] Long-term (current) use of anticoagulant sPersonal history of thrombophlebi tis 3 Deidre Martines. [address] [place], [place], [address]. tel:[phone] Referring Provider: Bobbi Jiang, [address] [place], [address] . tel:[phone] [facility] [address], [place], [place], [address] , tel: [phone] Radha Welcome to Medicare preventive visitUnspecif ied essential hypertension 3 Deidre Martines. [address] [place], [place], [address]. tel:[phone] Referring Provider: Bobbi Jiang, [address] [place], [address] . tel:[phone] [facility], [facility] [address], [place], [place], [address] , tel: [phone] [place] Long-term (current) use of anticoagulant sPersonal history of thrombophlebi tis 3 Deidre Martines. [address] [place], [place], [address]. tel:[phone] Referring Provider: Bobbi Jiang, [place], [address] . tel:[phone] [employer], [address], [place], [place], [address] , tel: [phone] [place] Long-term (current) use of anticoagulant sPersonal history of venous thrombosis and embolism 3 Deidre Martines. [address] [place], [place], [address]. tel:[phone] Referring Provider: Bobbi Jiang, [address] [place], [address] . tel:[phone] [employer], [address], [place], [place], [address] , [place] tel: [phone] [facility] CHRONIC OBSTRUCTIVE ASTHMA, UNSPECIFIEDAl lergic rhinitis due to other allergenEsoph ageal reflux 3 Emily Zaidi. [address], [place], [place], [address]. tel:[phone] Referring Provider: Bobbi Jiang, [place], [address] . tel:[phone] [employer], [address], [place], [place], [address] , [place] tel: [phone] [place] Long-term (current) use of anticoagulant sPersonal history of thrombophlebi tis 3 Deidre Martines. [address] [place], [address]. tel:[phone] Referring Provider: Bobbi Jiang, [place], [address] . tel:[phone] [employer], [address], [place], [place], [address] , tel: [phone] [place] Personal history of thrombophlebi tisLong-term (current) use of anticoagulant s 2 Deidre Martines. [address], [place], [address]. tel:[phone] Referring Provider: Bobbi Jiang, [address] [place], [address] . tel:[phone] [employer], [address], [place], [place], [address] , tel: [phone] [place] Personal history of thrombophlebi tisLong-term (current) use of anticoagulant s Jan- 2 Jiang Bobbi. [address], [place], [address]. tel:[phone] Referring Provider: Bobbi Jiang, [address] [place], [address] . tel:[phone] [employer], [address], [place], [place], [address] , tel: [phone] [place] Long-term (current) use of anticoagulant sPersonal history of thrombophlebi tis 2 Jiang Bobbi. [address], [place], [address]. tel:[phone] Referring Provider: Bobbi Jiang, [address] [place], [address] . tel:[phone] [facility] [address], [place], [place], [id number] , tel: [phone] [place] HYPERTENSION NOSDyslipidem ia, goal LDL below 100Type II diabetes mellitus, uncontrolled Oct- 0 2 Jiang Bobbi. [address], [place], [address]. tel:[phone] Referring Provider: Bobbi Jiang, [address] [place], [address] . tel:[phone] [employer], [address], [place], [place], [address] , tel: [phone] [place] Diabetes mellitus without mention of complication, type II or unspecified type, not stated as uncontrolledO ther and unspecified hyperlipidemi aLong-term (current) use of anticoagulant sLong-term (current) use of other medicationsPe rsonal history of thrombophlebi tis 2 Jiang Bobbi. [address], [address]. [phone] Referring Provider: Bbobi Jiang, [address] [place], [address] . tel:[phone] [facility] [id number] [place] [address], [id number] , tel: [phone] [place] Personal history of thrombophlebi tisLong-term (current) use of anticoagulant s 2 Deidre Martines. [address], [place], [address]. tel:[phone] Referring Provider: Bobbi Jiang, [address] [place] [address], [address] . [phone], [id number] , tel: [phone] [place] Personal history of thrombophlebi tisLong-term (current) use of anticoagulant s 2 Deidre Martines. [address], [place], [address]. [phone] Referring Provider: Bobbi Jiang, [address] [place] [address], [address] . tel:[phone] [facility] [id number] [place] [address], [id number] , tel: [phone] [facility] CHRONIC OBSTRUCTIVE ASTHMA, UNSPECIFIEDAl lergic rhinitis, cause unspecified 2 Yoseph Burks. [address] [place] [address], [id number], . tel:[phone] Referring Provider: Bobbi Jiang, [address] [place], [address] . [id number] [place] [address], [id number] , [place] tel: [phone] [place] Long-term (current) use of anticoagulant sPersonal history of thrombophlebi tis 2 Deidre Martines. [address], [place], [address]. tel:[phone] Referring Provider: Bobbi Jiang, [address] [place], [address] . tel:[phone] [employer], [address], [place], [place], [address] , [place] tel: [phone] [facility] Allergic rhinitis due to other allergenINTRI NSIC ASTHMA, WITH (ACUTE) EXACERBATION 2 Yoseph Burks. [address] [place] [address], [id number], . tel:[phone] Referring Provider: Bobbi Jiang, [address] [place], [address] . tel:[phone] [employer], [address], [place], [place], [address] , [place] tel: [phone] [place] Need for prophylactic vaccination and inoculation against streptococcus pneumoniae [pneumococcus ] 2 Deidre Martines. [address], [place], [address]. tel:[phone] Referring Provider: Bobbi Jiang, [address] [place], [address] . tel:[phone] [employer], [address], [place], [place], [address] , [place] tel: [phone] [place] Diabetes mellitus without mention of complication, type II or unspecified type, not stated as uncontrolledO ther and unspecified hyperlipidemi a 2 Deidre Martines. [address], [place], [address]. tel:[phone] Referring Provider: Bobbi Jiang, [address] [place], [address] . tel:[phone] [facility], [address], [place], [place], [address] , tel: [phone] [place] Rectal bleedInternal hemorrhoidsEs ophageal reflux 4-201 2 Jiang Bobbi. [address], [place], [address]. tel:[phone] Referring Provider: Bobbi Jiang, [address] [place], [address] . tel:[phone] [facility], [address], [place], [place], [address] , tel: [phone] [place] Personal history of thrombophlebi tisLong-term (current) use of anticoagulant s May-3 0-201 2 Jiang Bobbi. [address], [place], [address]. tel:[phone] Referring Provider: Bobbi Jiang, [address] [place] [address], [address] . [phone] [address], [place], [place], [address] , tel: [phone] [place] Personal history of thrombophlebi tisLong-term (current) use of anticoagulant s 8 2 Jiang Bobbi. [address], [place], [address]. tel:[phone] Referring Provider: Bobbi Jiang, [address] [place], [address] . [phone] [address], [place], [place], [address] , tel: [phone] [place] Long-term (current) use of anticoagulant sPersonal history of venous thrombosis and embolism Apr- 4-201 2 Jiang Bobbi. [address], [place], [address]. tel:[phone] Referring Provider: Bobbi Jiang, [address] [place], [address] . [phone] [address], [place], [place], [address] , tel: [phone] [place] Unspecified essential hypertensionD iabetes mellitus without mention of complication, HX-PROSTATIC MALIGNANCYHis tory of DVT of lower extremityHX-P ROSTATIC MALIGNANCYINT RINSIC ASTHMA NOSDyslipidem ia, goal LDL below 100HX-PROSTAT IC MALIGNANCYHX- PROSTATIC MALIGNANCYROU MERRY MEDICAL EXAMROUTINE MEDICAL EXAMHemorrhoi ds 2 Deidre Luih. [address], [place], [address]. tel:[phone] Referring Provider: Bobbi Jiang, [address] [place] [address], [address] . tel:[phone] [facility], [address], [place], [place], [address] , tel: [phone] [place] Diabetes mellitus without mention of complication, Unspecified essential hypertensionL yoanna-term (current) use of anticoagulant sLong-term (current) use of other medicationsSc reening for malignant neoplasms of the prostatePerso nal history of venous thrombosis and embolismScree nathan for lipoid disorders 2 Deidre Luih. [address], [place], [address]. [phone] Referring Provider: Bobbi Jiang, [place], [address] . tel:[phone] [facility], [address], [place], [place], [address] , tel: [phone] [place] Long-term (current) use of anticoagulant s 1 Deidre Luih. [address], [place], [address]. tel:[phone] Referring Provider: Bobbi Jiang, [place], [address] . tel:[phone] [facility], [address], [place], [place], [address] , tel: [phone] [place] Osteoarthrosi s, generalized, involving unspecified siteAllergic rhinitis, cause unspecifiedPe rsonal history of malignant neoplasm of prostateImpot ence of organic origin 1 Jiang Bobbi. [address], [place], [address]. [phone] Referring Provider: Bobbi Jiang, [address] [place] [address], [address] . tel:[phone] [facility], [address], [place], [place], [address] , tel: [phone] [place] NEED FOR PROPHYLACTIC VACCINATION AND INOCULATION, INFLUENZA 1 Jiang Bobbi. [address], [place], [address]. tel:[phone] Referring Provider: Bobbi Jiang, [address] [place] [address], [address] . tel:[phone] [facility], [address], [place], [place], [address] , tel: [phone] [place] LONG-TERM USE ANTICOAGULHX- JAVED THROMBOSIS/EM BOLSLong-term (current) use of anticoagulant sPersonal history of venous thrombosis and embolism 1 Jiang Bobbi. [address] [place] [address], [id number]. tel:[phone] Referring Provider: Bobbi Jiang, [address] [place] [address], [address] . tel:[phone] [facility], [address], [place], [place], [address] , [place] tel: [phone] [place] DMII WO CMP NT ST UNCNTRHX-JAVED THROMBOSIS/EM BOLSTIETZE'S DISEASELONG-T ERM USE ANTICOAGULHYP ERTENSION NOS 1 [facility] Bobbi. [address] [place] [address], [id number]. tel:[phone] [facility], [address], [place], [place], [address] , tel: [phone] [place] GENERAL OSTEOARTHROSI SOTHER ATOPIC DERMATITISESO PHAGEAL REFLUXCHEST PAIN NEC 1 Deidre Lemaorah. [address], [place], [address]. tel:[phone] [employer], [address], [place], [place], [address] , [place] tel: [phone] [place] ALLERGIC RHINITIS NOSIMPOTENCE, ORGANIC ORIGNHX-PROST ATIC MALIGNANCYMOR BID OBESITY 1 Jiang Bobbi. [address], [place], [address]. tel:[phone] [employer], [address], [place], [place], [address] , [place] tel: [phone] [place] GLAUCOMA NOSROUTINE MEDICAL EXAM 1 Deidre Luih. [address], [place], [address]. tel: [phone] [employer], [address], [place], [place], [address] , [place] tel: [phone] [facility] INT ASTHMA W (AC) EXAC 0 Yoseph Burks. [address], [id number], [place]. tel:[phone] [employer], [address], [place], [place], [address] , [place] tel: [phone] [facility] EPISTAXISACUT E SINUSITIS NOSINTRINSIC ASTHMA NOS 0 Yoseph Burks. [address], [id number], [place]. tel:[phone] [employer], [address], [place], [place], [address] , [place] tel: [phone] [facility] CHRONIC OBST ASTHMA NOSALLERGIC RHINITIS NEC 8 Yoseph Burks. [address], [address], [place]. tel:[phone] [employer], [address], [place], [place], [address] , tel: [phone] [facility] AC ATOPIC CONJUNCTIVITI S 7 Yoseph Burks. [address], [id number], . tel:[phone] [employer], [address], [place], [place], [address] , [place] tel: [phone] [facility] HEADACHE 3 [facility]. [address] [place] [address], [address], . [facility], [address], [place], [place], [address] , tel: [phone] [facility] AC MAXILLARY SINUSITIS 2 [facility]. [address] [place] [address], [address], . [employer], [address], [place], [place], [address] , tel: [phone] [facility] CHR MAXILLARY SINUSITIS 1 [facility]. [address] [place] [address], [address], . Family History Family Member Type Diagnosis Age At Onset Problem (finding) Family history of alcoh olism Mother Problem (finding) stroke Problem (finding) Family history of raise d blood lipids Father Problem (finding) alzheimer's disease Mother Problem (finding) diabetes melli tus in first degree relative Problem (finding) Family history of Diabe shiela mellitus Problem (finding) Family history of asthm a Problem (finding) Family history of Cance r, basal cell Immunizations Vaccine Date Status Comments Flublok, Trivalent, preservative free, 18+ yrs, 0.5mL dosage administered Source: New Immuniza tion Record Fluzone High-Dose, high dose , preservative free administered Source: New Immuniza tion Record Pneumococcal conjugate PCV20 administered Source: New Immunization Record Flublok, quadrivalent, preservative free, 0.5mL dosage administered Source: New Immuniza tion Record Campus Quad (Diluent Reconstitute d) COVID19 Vaccine, 0.3mL per dose, 2 doses, administered 21 days apart administered Note: [facility] ; Source: Source Unspecified Flublok, quadrivalent, preservative free, 0.5mL dosage administered Source: New Immuniza tion Record Campus Quad (Diluent Reconstitute d) COVID19 Vaccine, 0.3mL per dose, 2 doses, administered 21 days apart administered Source: Source Unspe cified Pfizer-BioNTech COVID19 Vaccine, 0.3mL per dose, 2 doses, administered 21 days apart administered Note: [facility] ; Source: Other Registry Pfizer-BioNTech COVID19 Vaccine, 0.3mL per dose, 2 doses, administered 21 days apart administered Note: [facility] ; Source: Other Registry Flublok, quadrivalent, preservative free, 0.5mL dosage administered Source: New Immuniza tion Record Flublok, quadrivalent, preservative free, 0.5mL dosage administered Source: New Immuniza tion Record Flublok, quadrivalent, preservative free, 0.5mL dosage administered Source: New Immuniza tion Record Fluzone Quad , preservative free, split virus, 0.5mL dosage administered Source: New Immuniza tion Record Influenza, injectable, quadrivalent, preservative free, 3 yrs or older administered Source: New Immuniz ation Record Influenza, injectable, quadrivalent, preservative free, 3 yrs or older administered Source: New Immuniz ation Record Pneumococcal conjugate PCV 13 administere d Source: New Immunization Record Zoster administered Note: [facility] ; Christina rce: Source Unspecified Influenza, injectable, quadrivalent, preservative free, 3 yrs or older administered Source: New Immuniz ation Record Tdap (Adacel r) administered Note: [facility] [phone] ; Source: New Immunization Record Fluzone administered Note: [facility]# [id number] quadrivalent ; Source: New Immunization Record Fluzone administered Note: [facility] [phone] [phone] ; Source: New Immunization Record Pneumo (2 yrs or older) (PPV23) administered Source: New Immuniza tion Record Flu (split) (3 yrs or older) administered Source: New Immunization Record 32699 - Influenza administered Source: Bernie chu Unspecified Payers Payer name Insurance type Covered libertarian ID Authoriza tion(s) [place] [id number] [place] [id number] [place] [id number] [place] [id number] [place] [id number] [place] ACC[place] [id number] [place] [id number] BCBS ACCESS BL [id number] MEDICARE MB [id number] BCBS ACCESS BL [id number] MEDICARE MB [id number] BCBS ACCESS [place] [id number] [place] [id number] [place] [id number] [place] [id number] [place] [id number] [place] [id number] [place] [id number] [place] [id number] [place] [id number] [place] [id number] [place] [id number] [place] [id number] [place] [id number] [place] [id number] [place] [id number] Social History Type Description Quantity Date Captured Comments Alcohol Use Details Unknown Caffeine Use Details Unknown Tobacco Use Status No Information Smoking Status No Information Sex Male Chief Complaint And Reason For Visit No Information Reason For Referral Reason For Referral No Information Plan Of Treatment Date Type Action Status Goal Dietary manageme nt education, guidance, and counseling completed Goal Dietary manageme nt education, guidance, and counseling completed Goal Dietary manageme nt education, guidance, and counseling completed Goal Dietary manageme nt education, guidance, and counseling completed Goal Dietary manageme nt education, guidance, and counseling completed Goal Dietary manageme nt education, guidance, and counseling completed Goal Dietary manageme nt education, guidance, and counseling completed Goal Dietary manageme nt education, guidance, and counseling completed Goal Dietary manageme nt education, guidance, and counseling completed Goal Dietary manageme nt education, guidance, and counseling completed Goal Dietary manageme nt education, guidance, and counseling completed Goal Dietary manageme nt education, guidance, and counseling completed Goal Dietary manageme nt education, guidance, and counseling completed Goal Dietary manageme nt education, guidance, and counseling completed Goal Dietary manageme nt education, guidance, and counseling completed Goal Dietary manageme nt education, guidance, and counseling completed Goal Dietary manageme nt education, guidance, and counseling completed Goal Dietary manageme nt education, guidance, and counseling completed Goal Dietary manageme nt education, guidance, and counseling completed Goal Dietary manageme nt education, guidance, and counseling completed Goal Dietary manageme nt education, guidance, and counseling completed Goal Dietary manageme nt education, guidance, and counseling completed Referral Ordered: Measurement of ankle brachial index (WILFREDO) of both lower extremities at 1 to 2 levels using Doppler ultrasound ordered Referral Ordered: SLEEP STUDY, UNATTENDED ordered Referral Ordered: Occupational Therapy [facility] (related to Personal history of other venous thrombosis and embolism) ordered Referral Referred To: [place], [phone] Ordered: Referrals: Allergy and Immunology. Dave Healy. Evaluation/diagnostic/treatment - Level 3 ordered Referral Referred To: Occupational Therapy [address] [place] [address], [phone] Ordered: Referrals: Occupational Therapy. Location: [facility]. Evaluation/diagnostic/treatment - Level 3 ordered Referral Referred To: Anupama Patel MD Ordered: Referrals: Neurology. Anupama Patel MD. Evaluation/diagnostic/treatment - Level 3 ordered Referral Referred To: Physical Therapy [address] [place] [address], [phone] Ordered: Referrals: Physical Therapy. Location: [facility]. Evaluation/diagnostic/treatment - Level 3 ordered Referral Referred To: [address] [place] [address], [id number] [phone] Ordered: MRI brain wo contrast ordered Referral Referred To: [address] [place], [phone] Ordered: CT, head, without contrast ordered Referral Referred To: Luis Eduardo Stanley MD [address] [place], [phone] Ordered: Referrals: Dermatology. Luis Eduardo Stanley MD. Evaluation/diagnostic/treatment - Level 3 ordered Referral Ordered: RUQ US (right upper quadrant ultrasound) Appointment date/timeframe: 03/13/2019 ordered Referral Ordered: CT abdomen and pelvis w contrast Appointment date/timeframe: 11/13/2018 ordered Referral Ordered: CT chest w contrast Appointment date/timeframe: 11/13/2018 ordered Appointment Esthela Mora BOOKED Appointment Esthela Mora BOOKED History Of Present Illness Encounter Date Complaint History Of Prese nt Illness hematuria 78 year old male who presents with hematuria since last night. He describes as bright red blood. He also has dysuria. He has mild suprapubic pain. He has no difficulty urinating. Denies fever, chills, body aches, flank pain, new back pain. chronic conditons famimly thinks he is depressed, tearful, thinks hes talking, more sleeping, eating less, not doing the things to dohtn-- controlled on meddm-- doing ok increased urination no burningal so had been having a coughweigth is uphas bph ER followup 77 year old male who presents for ER followup. He was evaluated in ER on 06/22 for dysuria, right testicular pain for one day. He follows with Dr Lu, urologist. He had labs and US while in ER. US showed increased blood flow to right testicle which can be seen in orchitis or tubular atrophy, possible mass in right testicle, indeterminate masses to left epididymal head and right epididymis He was diagnosed with UTI and treated with antibiotics for 14 days. ER consulted over the phone with urologist regarding US who recommended above antibiotic treatment as well as close followup with patients urologist. He has had followup with Dr Lu. He is following up with urologist in November again. px Chronic conditio nsprostate cancer-- psa higher, seeing urologydm with pad-- feet are coldcad-- no chest paincopd-- breathing okhtn with ckd-- controlled on medhld-- controlled on medcerebral atrophy-- memory okaa-seen on scansdiet-- normalexercise-- not muchimmunizations-- utdscreenings--utdmood-- thinks he is depressed a bitmemory-- ok Medicare preventive The patient has not felt depressed and has had interest and pleasure doing things recently. Functional status assessed on 04/19/2022. Cognitive Status: (Cognitive status has not changed) on 04/24/2023. The ''Up and Go'' test took less than 30 seconds andthe patient does not need help with activities of daily living. The patient is not at risk for falls. The patient has not fallen in the last year. The fall(s) did not result in injury. Patient's activity level is sedentary. Patient exercises occasionally. The patient has smoke detectors, firearms, carbon monoxide detectors in the home. There is no radon in the patient's home. Patient reports using a seatbelt in vehicles. Patient reports a diabetic diet. Patient denies recent weight gain. Patient denies recent weight loss. Relevant history is negative for tobacco use, passive vaping exposure and alcohol use. Chr conditions gerd-- controlle d on medhtn with ckd-- controlled on meddm--has been controlledasthma-- doing alright bilat feet swelling leg swelling -- goes down with feet up, no sobbnp before wa snormalhas varicose vbeins Patient encounter Chief complain t: swollen legs.pt has swollen legs , used to go down at night but now doesntno sob3 pound weigth gain from last timeurinating a lot feet and ankle swelling started on saturdayddint go down at allno shortness of breathfeet swelling Medicare preventive Functional s tatus assessed on 12/13/2020. Cognitive status assessed on 12/13/2020. Patient's activity level is moderate. Patient exercises 3-4 times/week. The patient has smoke detectors, firearms, carbon monoxide detectors in the home. There is no radon in the patient's home. Patient reports using a seatbelt in vehicles. Patient reports a diabetic diet. Relevant history is negative for passive vaping exposure and alcohol use. Screening services were reviewed and updated. Patient encounter Chief complain t: chronic conditions.Patient reports having headaches recently. His BP is on the lower end. He has nauseated feeling at times. His last BP reading was 3 days ago and 140/80s. Patient reports staying hydrated. He has no chest pain or palpitations. He reports feeling well todayHe had abdominal pain a week ago and was sent to ER. He was sent home with pantoprazole. Type 2 DM with CKD stage 3 and hypertensionTakes glimepiride, Januvia, metforminLast A1C: 7.1 (03/2022)Last eye exam: UTD per patientHypertensive chronic kidney disease with stage 1 through stage 4 chronic kidney disease, or unspecified chronic kidney diseaseTakes HCTZ, lisinopril, toprolHome BP readings: 140/80sCKD due to HTN and DMStage 3 chronic kidney disease, unspecified whether stage 3a or 3b CKDDue to HTN and DM. This is stableAtherosclerosis of aortaThis was noted on CT in 03/2019. No chest pain or shortness of breathAtherosclerosis of te-moak coronary artery of te-moak heart without angina pectorisMild atherosclerosis noted in coronary arteries on CT in 03/2019. No chest pain or shortness of breath. Takes statin dailyBenign prostatic hyperplasia, unspecified whether lower urinary tract symptoms presentTakes Flomax and myrbetriq?? and follows with urologistPersonal history of other venous thrombosis and embolismTakes Xarelto daily with no bleeding problemsProstate cancerLast PSA was 8.3 in 03/2022 and was more elevated than previous. He follows routinely with urologist for monitoring of prostate cancer.Gastro-esophageal reflux disease without esophagitisTakes pantoprazole dailyHistory of CVA (cerebrovascular accident)s/p CVA with hemiplegia. Takes statin daily. Moderate persistent asthma, uncomplicatedTakes albuterol daily and Xhance (fluticasone) daily. He has Trelegy listed but does not take this. He has had mild wheezing at night.Cerebral AtrophyThis was noted on MRI brain in 12/2020.AAThis was noted on CT in 04/2019. No chest pain, abdominal pain currently. Takes statin daily Patient encounter Chief complain t: sick.n saturdayfelt weaknessthrewup 2 timestuesday nighht threw againg--felt tiredfeels dehydratedtoday, had lots of formed sttolurine was yellwo acute visit brett-- doesnt wea r cpapcosntipation --doing betterdm-- unclear how much he was taking, last a1c was ok acute visit stomach pain wit h back paineating lesslast bm was saturday, usually goes everydry heaveds Chronic conditions Chronic Conditions *See Chronic Conditions HPI Chronic Conditions *See Chronic Conditions HPI chronic conditions hx of cva wit h residual effects-- doing betterdm seesm to be running okasthma-- controlled on med follow up hx of cva with r esidual effect-- having trouble with worseleft hemipkegaii --probably from stroke ams not remembering as muchseeing things yesterdaynot driving approprioatelyseemed paranoidhasnt been normal since saturdaywithdrawnno falls no urinary symptomsbs under 115no coughno focal weaknessno fatigue Medicare preventive A Health Ris k Assessment has been performed and reviewed. The patient has not felt depressed and has had interest and pleasure doing things recently. Functional Status: (Functional status has not changed) on 12/13/2020. Cognitive Status: (Cognitive status has not changed) on 12/13/2020. The ''Up and Go'' test took less than 30 seconds and the patient does not need help with activities of daily living. The patient is not at risk for falls. The patient has not fallen in the last year. The fall(s) did not result in injury. Patient's activity level is moderate. Patient exercises 3-4 times/week. The patient has smoke detectors, firearms, carbon monoxide detectors in the home. There is no radon in the patient's home. Patient reports using a seatbelt in vehicles. Patient reports a diabetic diet. Patient denies recent weight gain. Patient denies recent weight loss. Relevant history is negative for tobacco use, passive vaping exposure, passive smoke exposure and alcohol use. px chronic conditio nsgerd--less reflex latelydm-- doing ok, got eye exam this yearhtn-- bp a little high, no chest paincopd-- controlled on trellegyelevated psa-- had prostate cancerhx of dvt-- controlled on xareltodiet--- okexercise-- okscreening--utdimmunizations--utdmood-- pretty goodmemory--ok allergies GERD allergies (comments) Allergens: HOUSE DUST MITES, POLLENS (tested in 1987)More nasal congestion since the start of 2020.Uses Fluticasone nasal spray 2 puffs each nostril PRN but feels this concepcion his nose. Also remains on Xyzal (Levocetirizine) 5mg qd prnNo sinusitis in the interim GERD (comments) Was using the Pr otonix 40 mg qd - BID depending upon symptoms. Followed by Dr. Molina (GI).Avoids spicy foods. asthma Asthma-control W was seen today for asthma management. His asthma is classified as Moderate Persistent.Since His last visit for asthma control on 05/05/2020, He has had asthma related:-hospitalizations: NO-ER/Urgent care visits: NO-oral steroids: YES, 08/24/20 and 10/28/20-rescue inhaler use: YES-Missed school/work: NOAsthma Control Test score: 151. Unlimited activity: A little of the time (4)2. Caused shortness of breath: Not at all (5)3. Interrupted sleep: 4 or more nights a week (1)4. How often using rescue med: 1 or 2 times per day (2)5. Personal rating of control: Somewhat controlled (3)The asthma is Well Controlled.Known triggers include: seasonal allergies and colds.Environmental exposure/control:Smoker: NOTobacco exposure: NOFamily history notable for:Asthma: YESPrevious allergy testing was on 04/02/1987. Results - HOUSE DUST MITES, POLLENS.Spirometry was last performed on 05/05/2020. Results - SEVERELY RESTRICTED. asthma (comments) Last seen 05/05, and before this on 11/05/19.Continues to use Symbicort 160/4.5, 2 puffs BID with the chamber. Proair PRN but very seldom. Canister will before used. Not doing much exercise with minimal yard work. He is feeling well controlled most of the time.Will use the Proair for coughing at HS and once asleep will stay asleep without cough. Had 2 exacerbations in interim (08/24/20, 10/28/20) that required short course of oral prednisone to get over. Previous steroid burst 11/19/19.Had imeem vaccinations x 2.Chest CT (04/21/19) showed unchanged areas of chronic pleuroparenchymal scarring in both lungs, greater in the RML and both lower lobes (compared with 2018 study).Flu shot done last fall. Chronic Conditions *See Chronic Conditions HPI 4 mo followup of chr onic conditions 75 year old male who presents for 4 juan f h followup of chronic conditionsPatient reports rectal itching and burning 2 weeks ago. He has been using Tucks pads and preparation H. He had a slight bleeding previously. He has history of hemorrhoids.He also complains of abdominal bloating and follows with GI but missed his last appointment allergies Asthma-control W was seen today for asthma management. His asthma is classified as Moderate Persistent.Since His last visit for asthma control on 11/05/2019, He has had asthma related:-hospitalizations: NO-ER/Urgent care visits: NO-oral steroids: NO-rescue inhaler use: YES-Missed school/work: NOAsthma Control Test score: 231. Unlimited activity: A little of the time (4)2. Caused shortness of breath: Not at all (5)3. Interrupted sleep: Not at all (5)4. How often using rescue med: Not at all (5)5. Personal rating of control: Well controlled (4)The asthma is Well Controlled.Known triggers include: seasonal allergies and colds.Environmental exposure/control:Smoker: NOTobacco exposure: NOFamily history notable for:Asthma: YESPrevious allergy testing was on 04/02/1987. Results - HOUSE DUST MITES, POLLENS.Spirometry was last performed on 11/05/2019. Results - MODERATELY RESTRICTED. GERD asthma asthma (comments) Last seen 11/04 and before this on 11/10/18 Continues to use Symbicort 160/4.5, 2 puffs BID with the chamber. Proair PRN but very seldom. Canister will before used. After TKR (second time on left) in 04/16, and had to be on oxygen for a month - off since end of April and no further trouble. Not doing much exercise with minimal yard work. He is feeling well controlled most of the time.Cough around HS, but once asleep will stay asleep without cough. Will use the Proair for coughing at HS.Had [facility] #1 and will get last one next week.Flu shot done last fall. allergies (comments) Allergens: HOUSE DUST MITES, POLLENS (tested in 1987)More nasal congestion since the start of 2020.Uses Fluticasone nasal spray 2 puffs each nostril PRN but feels this concepcion his nose. Also remains on Xyzal 5mg qd.No sinusitis in the interim GERD (comments) Was using the Pr otonix 40 mg qd - BID depending upon symptoms. Followed by Dr. Molina (GI).Avoids spicy foods. chronic conditions dm-- at goal, bs running lower after stopping sodaasthma--- controlled on symbicorthtn-- bp controlled, no symptomshx of dvt--no bleeding problems on xarelto Medicare preventive A Health Ris k Assessment has been performed and reviewed. The patient has not felt depressed and has had interest and pleasure doing things recently. Functional Status: (Functional status has not changed) on 12/16/2019. The ''Up and Go'' test took less than 30 seconds and the patient does not need help with activities of daily living. The patient is not at risk for falls. The patient has not fallen in the last year. The fall(s) did not result in injury. Patient's activity level is moderate. Patient exercises 3-4 times/week. The patient has smoke detectors, firearms, carbon monoxide detectors in the home. There is no radon in the patient's home. Patient reports using a seatbelt in vehicles. Patient reports a diabetic diet. Patient reports recent weight loss of 5 lbs, 2.27 kgs over 1 Month. Relevant history is negative for tobacco use, passive vaping exposure, passive smoke exposure and alcohol use. Screening services were reviewed, no changes made. AWV Patient presents for annual physicalAcuteElevated PSA on recent labs at 4.24. We will send this to urologist. Patient has had previous elevated PSAs. ChronicBPHPatient takes Myrbetriq and Flomax daily and follows with urologist. Patient has no difficulty urinating currently. AAThis was noted on CT in 03/2019. No chest pain or shortness of breathCAD I25.10 Mild atherosclerosis noted in coronary arteries on CT in 03/2019. No chest pain or shortness of breathPOAG, bilat, mild H40.1131 (Oph 01/20/19)Patient follows with eye doctorLast appt: 12/2018Next appt: not scheduled yetAsthmaPatient takes Symbicort daily. He follows with allergistHLAriadna E78.5Patient takes lipitor with no side effectsType 2 DMPatient takes glimepiride, januvia and metforminLast A1C: 7.1 (11/2019)Last eye exam: 12/2018Fasting blood sugars: 90-100sHTNPatient takes HCTZ, lisinopril, metoprololHome BP readings: noneCKDLast GFR: 54 Due to HTN and DMConstipationPatient was evaluated by GI last week. He was recommended to take Miralax and Phazyme. He has been doing this. He reports bloating. He will see GI again in a few months. GERDPatient takes pantoprazole 40 mg BID. He was taking once a day but it was not well controlled. He reports symptoms better controlled with twice daily dosing. Personal history of blood clotPatient takes xarelto daily. No bleeding problemsMood - pretty goodScreeningsColonoscopy - UTD - no repeat due to agePSA - UTD allergies GERD Asthma-control W was seen today for asthma management. His asthma is classified as Moderate Persistent.Since His last visit for asthma control on 11/10/2018, He has had asthma related:-hospitalizations: NO-ER/Urgent care visits: NO-oral steroids: NO-rescue inhaler use: YES-Missed school/work: NOAsthma Control Test score: 211. Unlimited activity: Some of the time (3)2. Caused shortness of breath: Not at all (5)3. Interrupted sleep: Not at all (5)4. How often using rescue med: Once a week or less (4)5. Personal rating of control: Well controlled (4)The asthma is Well Controlled.Known triggers include: seasonal allergies and colds.Environmental exposure/control:Smoker: NOTobacco exposure: NOFamily history notable for:Asthma: YESPrevious allergy testing was on 04/02/1987. Results - HOUSE DUST MITES, POLLENS.Spirometry was last performed on 11/10/2018. Results - RESTRICTED. asthma (comments) Last seen 11/10 and before this on 08/18/18 (acute visit) with garage dust, paint/stain fumesContinues to use Symbicort 160/4.5, 2 puffs BID with the chamber. Proair PRN but very seldom. Canister will before used. After TKR (second time on left) in 04/16, and had to be on oxygen for a month - off since end of April and no further trouble. Not doing much exercise with minimal yard work. He is feeling well controlled most of the time. asthma allergies (comments) Allergens: HOUSE DUST MITES, POLLENS (tested in 1987)Uses Fluticasone nasal spray 2 puffs each nostril PRN Also remains on Xyzal 5mg qd.No sinusitis in the interim GERD (comments) Was using the Pr otonix 40 mg qd-bid, but now only using as needed.Followed by Dr. Molina (GI).Avoids spicy foods. 3 month dm-- at goal, bs run 90-100, no numbness in feethtn -- bp up a bit, no chest pain on medsasthma-- breathing ok, on inhaler telehealth Telehealth visit done today via audio only with pt's verbal consent due to restrictions from the COVID 19 pandemic. All issues as below were discussed and addressed but no physical exam was performed. This was performed while I was in my office in [place], [place], and pt. was in their home in [place], [place]. Patient does not have a smart phone and was unable to do audio/visual telehealth visit today. 6 month f/u 73 year old male who presents for 6 month f/u of chronic conditions.Patient saw his GI doctor last week. He complained of constipation since his LTKR. He has been taking 0-2 hydrocodone daily for pain. They discussed using prescription medications but prefers to try OTC first. He has started using Miralax daily. This has improved.Patient reports that his GI doctor is sending him a lab order to get completed soon. He will call us with that information when he receives it. He cannot remember what the lab is at this time. hopsital fu gerd-- having lo ts of problems, takinng pantorprazole and pepcid, lying down after eatsknee artrhitis-- sp revision, feeling better, still having some drainageno chest pain or sobosa--having nocturnal desats--didnt tolerate cpap surgical clearance 73 year old m quin who presents for surgical clearance. Patient is scheduled for left knee surgery for revision of previous TKA. He is having the surgery on 04/17/2019. His last left knee replacement was in 1997. He had right knee revision done a few years ago with no problems. He has no difficulty with anesthesia. He has no chest pain, SOB, palpitations. He has no difficulty exercising.He has no history of CAD, NV, stroke, ischemic heart disease, CHF or creatinine > 2.0.Patient has HTN that is well controlledPatient has type 2 DM and takes glimepiride and metformin daily. He was taking 2 g of Metformin every evening. He started feeling bad in the middle of the night a few weeks ago. He noticed blood sugar readings of 60s and below. He began taking 1 gram at night instead a few weeks ago and he feels much better. increased indigestion taking ome prazole but still having gerdno diarrheapain in stomacgh after he eatsno weigth loss px chronic conditio nsdm-- no numbness in feet, dm is better, gets annual eye examgerd-- controlled on medobesity-- hasnt been exercisingasthma--- controlledhx of prostate cancer--psa was risingdiet-- doesnt really watchhad unprovoked pe in past--no is on xarelt owith no bleeding problemsexercise-- not muchscreening-- utdimmunizations-- needs shingrix and pneumovaxmood-- no depressionmemory-- pretty good, lives with and takes care of himselfno falls in past year blood tinged mucus and cough 73 year old male with of asthma, on Xarelto who presents with cough and blood tinged mucus for 3 days. He describes as bright red blood in sputum that occurs throughout the day. Patient was evaluated by activity aide 3 days ago prior to hemoptysis. He was started on albuterol nebulizer treatments at that time. The cough has improved slightly with albuterol nebulizer over the past few days. He also reports epistaxis that occurred on 3 days ago prior to hemoptysis. He had been experiencing nasal irritation due to Flonase use. He only had one episode of epistaxis 3 days ago. However he has continued to have hemoptysis that is unchanged. He has not used Flonase in 3 days. He has no SOB, dyspnea. He has no fever or body aches. He reports chills.He also complains of abdominal pain for 5 days that is worsening. Located in center of abdomen. No NVDC. No blood in stool. No urinary symptoms. He also reports fatigue and generally not feeling good . Patient has never been a smoker asthma (comments) Last seen 08/18 (acute visit) with garage dust, paint/stain fumes, and before this on 01/20/18 (acute visit) with URIHad been doing well in the interim.This exacerbation started after he cut the grass on Saturday and then with onset of cough that night and worse the past 2 nights. Waking up with the cough and gets a sip of water. Tried using the Proair a couple of time yesterday with some improvement for about an hour.Continues to use Symbicort 160/4.5, 2 puffs BID with the chamber. Proair PRN.Still doing some exercise with yard work. He is feeling well controlled most of the time. allergies (comments) Allergens: HOUSE DUST MITES, POLLENS (tested in 1987)Uses Fluticasone nasal spray 2 puffs each nostril PRN but causes some nose bleeding.Now using Xyzal 5mg daily rather than PRN with better control.No sinusitis in the interim allergies GERD asthma Asthma-control W was seen today for asthma management. His asthma is classified as Moderate Persistent.He has had asthma related:-hospitalizations: NO-ER/Urgent care visits: NO-oral steroids: NO-rescue inhaler use: YES-Missed school/work: NOAsthma Control Test score: 161. Unlimited activity: A little of the time (4)2. Caused shortness of breath: Not at all (5)3. Interrupted sleep: 2 or 3 nights a week (2)4. How often using rescue med: 1 or 2 times per day (2)5. Personal rating of control: Somewhat controlled (3)The asthma is Not Well Controlled.Known triggers include: seasonal allergies and colds.Environmental exposure/control:Smoker: NOTobacco exposure: NOFamily history notable for:Asthma: YESPrevious allergy testing was on 04/02/1987. Results - HOUSE DUST MITES, POLLENS.Spirometry was last performed on 08/18/2018. GERD (comments) Using Omeprazole [address] Molina.Avoids spicy foods. asthma Asthma-control W was seen today for asthma management. His asthma is classified as Moderate Persistent.Since His last visit for asthma control on 01/20/2018, He has had asthma related:-hospitalizations: NO-ER/Urgent care visits: NO-oral steroids: YES-rescue inhaler use: YES-Missed school/work: NOAsthma Control Test score: 221. Unlimited activity: None of the time (5)2. Caused shortness of breath: Not at all (5)3. Interrupted sleep: Once a week (3)4. How often using rescue med: Not at all (5)5. Personal rating of control: Well controlled (4)The asthma is Well Controlled.Known triggers include: seasonal allergies and colds.Environmental exposure/control:Smoker: NOTobacco exposure: NOFamily history notable for:Asthma: YESPrevious allergy testing was on 04/02/1987. Results - HOUSE DUST MITES, POLLENS.Spirometry was last performed on 01/20/2018. asthma (comments) Last seen 12/27 08/12 (acute visit) with URI and before this on 10/01/17 Continues to use Symbicort 160/4.5, 2 puffs BID with the chamber. Proair PRN, and hasn't had to use much until he cleaned out the garage (dust) and stained a door a week ago. No trouble with exertion, (PT for recent knee replacement).He is feeling well controlled most of the time. allergies GERD allergies (comments) Allergens: HOUSE DUST MITES, POLLENS (tested in 1987)Uses Fluticasone nasal spray 2 puffs each nostril PRN Now using Cetirizine 10 mg daily rather than PRN with better controlNo sinusitis in the interim GERD (comments) Using Omeprazole 40 mg qd, and no longer on Ranitidine.Since last office visit he has had endoscopy and continues to be followed by Dr. Molina.Avoids spicy foods. chronic conditions dm-- on meds, last one was at goalcopd-- breathing ok on symbicortvte-- on medsankle swelling after injuryskin wound--- uses silvadene hosp f/u GI bleed gi--bleed reso lvedhb minimumly lowfeels ok, no sob or chest pain or fatigue Functional Status Date Functional Assessmen t No Information Instructions Date Instruction Additional Infor thang Take antibiotic as p rescribedMonitor for worsening symptoms and call us at any time if they occurFollowup in 2 weeks for repeat UAStay hydratedWe will call you with urine culture results Related to Acute UTI will try lexaproincrease activit y 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 continue medslow salt diet Relat ed to Essential (primary) hypertension continue medsincrease exercise R elated to Diabetes mellitus with peripheral circulatory disorder continues breouse a;lbuterol as needed Related to Moderate persistent asthma, uncomplicated Dietary management e ducation, guidance, and counseling Related to Body mass index (BMI) 37.0-37.9, adult Medication management continue medscontact urology for further help Related to Benign prostatic hyperplasia, unspecified whether lower urinary tract symptoms present Medication management Continue antibiotics and following with urologist as they recommend Related to Acute UTI Continue antibiotics and following with urologist as they recommend Related to Mass of right testicle Dietary management e ducation, guidance, and counseling Related to Body mass index (BMI) 39.0-39.9, adult follow up with urology Related t o Prostate cancer check bmp Related to Stage 3 chronic kidney disease, unspecified whether stage 3a or 3b CKD contnue medsavoid trigger foods Related to Gastro-esophageal reflux disease without esophagitis continue statinhealthy diet Rela saeid to Hyperlipidemia, unspecified hyperlipidemia type will monitor memory Related to M ild cerebral atrophy continue medslow salt diet Relat ed to Hypertensive chronic kidney disease with stage 1 through stage 4 chronic kidney disease, or unspecified chronic kidney disease continue medical management Rela saeid to Coronary artery calcification annual flu shotutd with screenin g Related to Routine medical exam continue statin Related to Ather osclerosis of aorta continue medswill get WILFREDO Relate d to Diabetes mellitus with peripheral circulatory disorder continue breo Related to Chron ic obstructive pulmonary disease, unspecified Counseled on dietary changes Counseled on weight reduction Dietary management e ducation, guidance, and counseling Related to Body mass index (BMI) 39.0-39.9, adult Urinary Incontinence Medication management Fall Risk Prevention check bmp Related to Stage 3 chronic kidney disease, unspecified whether stage 3a or 3b CKD continue inhaler Related to Mode rate persistent asthma, uncomplicated continue medslow salt diet Relat ed to Hypertensive chronic kidney disease with stage 1 through stage 4 chronic kidney disease, or unspecified chronic kidney disease continue medscheck a1c Related t o Type 2 DM with CKD stage 3 and hypertension Dietary management e ducation, guidance, and counseling Related to Body mass index (BMI) 39.0-39.9, adult Medication management keep feet elevated w ear compression stockings as able Related to Leg swelling Medication management keep feet elevatedus e compression stockingsif nto better will send to PT Related to Leg swelling Medication management Dietary management e ducation, guidance, and counseling Related to Body mass index (BMI) 40.0-44.9, adult will check labstake extra hydrochlorothiazide as we discussedlow salt diet Related to Leg swelling Medication management Monitor symptoms and let us know if they return Related to Acute nonintractable headache, unspecified headache type Followup in 6 months Recommend the new Shingrix vaccine- check with insurance to find out what your insurance coverage is for this and go to the pharmacy for administration if you wish to proceed with vaccination. Related to Routine medical exam Continue to work on increasing exercise such as walking. Continue to limit salt intake. Monitor your home blood pressure. Call our office if blood pressure is consistently over 140/90 Related to Hypertensive chronic kidney disease with stage 1 through stage 4 chronic kidney disease, or unspecified chronic kidney disease Continue pantoprazol e daily and avoid foods that trigger symptoms Related to Gastro-esophageal reflux disease without esophagitis Continue Xarelto Related to Pers onal history of other venous thrombosis and embolism Continue medications Get annual diabetic eye exams Related to Type 2 DM with CKD stage 3 and hypertension Continue flomax and follow with urologist Related to Benign prostatic hyperplasia, unspecified whether lower urinary tract symptoms present Continue Breo inhaler Related to Moderate persistent asthma, uncomplicated Monitor for chest pa in or shortness of breath Related to Atherosclerosis of [place] coronary artery of [place] heart without angina pectoris This is a common fin ding on chest imaging with mild plaque build up on the aorta. Continue to work on good blood pressure and cholesterol control to reduce risk of stroke and heart attack Related to Atherosclerosis of aorta Continue statin and stay activeWe will refer for OT driving evaluation Related to History of CVA (cerebrovascular accident) Continue medications Get annual diabetic eye exams Related to Diabetes mellitus with peripheral circulatory disorder Continue to follow with urologis t Related to Prostate cancer This is mild volume loss of the brain commonly seen with age noted on a prior CT scan of the brain. Continue to monitor for any worsening memory problems and continue brain exercises such as word search puzzles, crossword puzzles, reading. Related to Mild cerebral atrophy Consider getting sleep study Rel ated to BRETT (obstructive sleep apnea) We will continue to monitor Rela saeid to Stage 3 chronic kidney disease, unspecified whether stage 3a or 3b CKD continue statin Cont inue to work on low fat diet and increase regular exercise with goal of walking at least 30 minutes 3-5 times per week Related to Dyslipidemia, goal LDL below 100 Dietary management e ducation, guidance, and counseling Related to Body mass index (BMI) 39.0-39.9, adult Urinary Incontinence Fall Risk Prevention go to er for evaluation Related to Generalized abdominal pain Medication management take 1000mg metformin daily Rela saeid to Diabetes mellitus with peripheral circulatory disorder start cpap Related to BRETT ( obstructive sleep apnea) Medication management Dietary management e ducation, guidance, and counseling Related to Body mass index (BMI) 39.0-39.9, adult will send to ERpt agreed Related to Generalized abdominal pain Medication management controlled on med Related to Cor onary atherosclerosis due to calcified coronary lesion continue statin Related to Coron angel artery calcification continue statin Related to Dysli pidemia, goal LDL below 100 will continue to monitor Related to Mild cerebral atrophy healthy diet and exercise Relate d to Morbid (severe) obesity due to excess calories increase exercise Related to Keren betes mellitus with peripheral circulatory disorder will continue to monitor Related to Prostate cancer Medication management Dietary management e ducation, guidance, and counseling Related to Body mass index (BMI) 39.0-39.9, adult BEGIN TAKING TRELEGY DAILYDISCONTINUE XHANCE INHALERMonitor breathing Related to Moderate persistent asthma, uncomplicated Continue statin and stay activeWe will refer for OT driving evaluation Related to History of CVA (cerebrovascular accident) Continue pantoprazol e daily and avoid foods that trigger symptoms Related to Gastro-esophageal reflux disease without esophagitis Continue Xarelto Related to Pers onal history of other venous thrombosis and embolism Followup with urologist as sched uled Related to History of prostate cancer Continue flomax and follow with urologist Related to Benign prostatic hyperplasia, unspecified whether lower urinary tract symptoms present Monitor for chest pa in or shortness of breath Related to Atherosclerosis of [place] coronary artery of [place] heart without angina pectoris We will continue to monitor Rela saeid to Stage 3 chronic kidney disease, unspecified whether stage 3a or 3b CKD This is a common fin ding on chest imaging with mild plaque build up on the aorta. Continue to work on good blood pressure and cholesterol control to reduce risk of stroke and heart attack Related to Atherosclerosis of aorta Continue to work on increasing exercise such as walking. Continue to limit salt intake. Monitor your home blood pressure. Call our office if blood pressure is consistently over 140/90 Related to Hypertensive chronic kidney disease with stage 1 through stage 4 chronic kidney disease, or unspecified chronic kidney disease Continue medications Get annual diabetic eye exams Related to Type 2 DM with CKD stage 3 and hypertension Dietary management e ducation, guidance, and counseling Related to Body mass index (BMI) 39.0-39.9, adult reduce glimepiride to 1 tab chel y Related to Type 2 or unspecified type diabetes mellitus continue inhaler Related to Mode rate persistent asthma, uncomplicated will send to neurolo gy and do physcial therapy Related to History of CVA (cerebrovascular accident) Medication management Dietary management e ducation, guidance, and counseling Related to Body mass index (BMI) 39.0-39.9, adult will increase lipitor Related to History of CVA (cerebrovascular accident) will send to OT and PT Related t o 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, unspecified cerebrovascular disease type, unspecified hemiplegia type, unspecified laterality Medication management will check labs and ct headgo to er if worsens Related to Altered mental status, unspecified altered mental status type Dietary management e ducation, guidance, and counseling Related to Body mass index (BMI) 39.0-39.9, adult Medication management healthy diet and exercise Relate d to Morbid (severe) obesity due to excess calories continue trelegy Related to Mode rate persistent asthma, uncomplicated continue pantoprazole Related to Gastro-esophageal reflux disease without esophagitis continue medslow salt diet Relat ed to Hypertension, unspecified type see urology bc of elevated psa R elated to History of prostate cancer continue xarelto Related to Pers onal history of other venous thrombosis and embolism continue medsexercise daily Rela saeid to Type 2 or unspecified type diabetes mellitus annual flu shotutd w ith screeningshealthy diet and exercisefollow up in 6 months Related to Encounter for general adult medical examination without abnormal findings Dietary management e ducation, guidance, and counseling Related to Body mass index (BMI) 40.0-44.9, adult Counseled on weight reduction Counseled on dietary changes Medication management Continue with your p resent medication for acid reflux (Protonix 40 mg twice daily taken a 1/2 hour before meals) as directed. Encouraged weight loss and more activity but not lifting.Precautions: -Avoid evening consumption of alcohol, caffeine, chocolate, carbonated beverages (all the time if possible), fatty foods, tomato and tomato products.-No more then 6 oz. of liquid (or anything that will turn into liquid) per hour during the day. -No liquids at all after 7PM. -Move meds to 7PM instead of bedtime.-No water at bedside.-Sleep elevated on adjustable bed-If you must sleep on your side then sleep on left side only Related to Gastro-esophageal reflux disease without esophagitis We reviewed appropri ate environmental control measures for your rhinitis.Please continue with your present nasal medications or treatment that includes Triamcinolone (Nasacort AQ) 2 puffs each nostril once daily year round, and Xyzal (Levocetirizine) 5 mg once daily as needed for extra allergy control when going outside to garden. Call for increasing symptoms or difficulty with medications. Refills provided or call when more are needed. Related to Allergic rhinitis due to pollen Replace bed pillows annually and discardReplace mattress every 8 years.Minimize indoor carpeting as much as possible. Lowest indoor humidity possible all year. Related to Allergic rhinitis due to dust mite Pulmonary functions performed today with good effort were SEVERELY RESTRICTED. Asthma Control Test (normal >19) = 15. Asthma has not been optimally controlled (on Symbicort) requiring a change in medication or additional medication. I recommend a trial of Breztri 2 puffs twice daily in place of the Symbicort.I reviewed the benefits and risks including side effects of this medication. We discussed the use of rescue medication (Proair or albuterol nebs). Please call for the frequent use of your rescue inhaler (beyond that discussed above) or difficulties with your asthma causing frequent night time awakenings, difficulties with your ability to exercise, or prolonged cough associated with viral colds. Related to Moderate persistent asthma, uncomplicated Medication management Followup with Sonall yehuda for appointment Related to Abdominal bloating Use hydrocortisone twice daily R elated to Rectal itching Continue to follow with urologis t Related to History of prostate cancer Continue to work on increasing exercise such as walking. Continue to limit salt intake. Monitor your home blood pressure. Call our office if blood pressure is consistently over 140/90 Related to Hypertensive chronic kidney disease with stage 1 through stage 4 chronic kidney disease, or unspecified chronic kidney disease Continue with your p resent medication for acid reflux (Protonix 40 mg daily) as directed.You may take pepcid as needed Related to Gastro-esophageal reflux disease without esophagitis Monitor for chest pa in or shortness of breathStatus: Meeting treatment plan goals. Goals: Your goal is to be active. Barriers: No barriers to goal achievement have been identified. Related to Atherosclerosis of [place] coronary artery of [place] heart without angina pectoris This is a common fin ding on chest imaging with mild plaque build up on the aorta. Continue to work on good blood pressure and cholesterol control to reduce risk of stroke and heart attack Related to Atherosclerosis of aorta Continue to work on low fat diet and increase regular exercise with goal of walking at least 30 minutes 3-5 times per week Related to Hyperlipidemia, unspecified hyperlipidemia type Continue to follow with urologis t Related to Benign prostatic hyperplasia, unspecified whether lower urinary tract symptoms present We will continue to monitorKeep good blood pressure and blood sugar control Related to Stage 3 chronic kidney disease, unspecified whether stage 3a or 3b CKD continue xarelto Related to Pers onal history of other venous thrombosis and embolism Continue with medica tionsTry to get regular exercise and eat a healthy dietSchedule your annual eye exam soon!Status: Not meeting treatment plan goals. Goals: Your goal is to be active. Barriers: No barriers to goal achievement have been identified. Related to Type 2 DM with CKD stage 3 and hypertension continue symbicort Related to Mo derate persistent asthma, uncomplicated Dietary management e ducation, guidance, and counseling Related to Body mass index (BMI) 39.0-39.9, adult Continue Protonix 40 mg per GI once to twice daily Related to Gastro-esophageal reflux disease without esophagitis As above. Related to Aller gic rhinitis due to dust mite We reviewed appropri ate environmental control measures for your rhinitis.Please continue with your present nasal medications or treatment that includes Nasacort AQ 1-2 puffs each nostril once daily and Xyzal 5 mg once daily. Call for increasing symptoms or difficulty with medications. Refills provided or call when more are needed. Related to Allergic rhinitis due to pollen Pulmonary functions performed today was SEVERELY RESTRICTED and slightly lower than last visit. Asthma Control Test (normal >19) = 23. Asthma is overall stable. Continue with present daily controller medication (Symbicort 160/4.5, 2 puffs twice daily and as needed) unchanged. I reviewed the benefits and risks including side effects of this medication. We discussed the use of rescue medication (Symbicort above 1-2 puffs or Proair 2 puffs). Please call for the frequent use of your rescue inhaler (beyond that discussed above) or difficulties with your asthma causing frequent night time awakeningsWill check some night time oximetry ( will wake up an check him) for concerns about hypoxia at night or sleep apnea. Related to Moderate persistent asthma, uncomplicated Medication management at goalcontinue medslow salt t Related to Essential hypertension continue symbicort Related to Mo derate persistent asthma, uncomplicated at goalcontinue meds Related to Type 2 or unspecified type diabetes mellitus continue xarelto Related to Pers onal history of other venous thrombosis and embolism Dietary management e ducation, guidance, and counseling Related to Body mass index (BMI) 40.0-44.9, adult Medication management Encourage healthy diet and exerc ise Related to Morbid (severe) obesity due to excess calories We will refer you to epic specialist today Related to Hyperpigmentation of skin Continue with medica tionsTry to get regular exercise and eat a healthy dietSchedule your annual eye exam in December!Status: Not meeting treatment plan goals. Goals: Your goal is to be active. Barriers: No barriers to goal achievement have been identified. Related to Type 2 DM with CKD stage 3 and hypertension Continue to follow with urologis t Related to Benign prostatic hyperplasia, unspecified whether lower urinary tract symptoms present Call urologist to pawan bruno on recent elevation in PSA Related to Elevated PSA Continue to work on low fat diet and increase regular exercise with goal of walking at least 30 minutes 3-5 times per week Related to Hyperlipidemia, unspecified hyperlipidemia type Monitor for chest pa in or shortness of breathStatus: Meeting treatment plan goals. Goals: Your goal is to be active. Barriers: No barriers to goal achievement have been identified. Related to Atherosclerosis of [place] coronary artery of [place] heart without angina pectoris We will continue to monitorKeep good blood pressure and blood sugar control Related to Stage 3 chronic kidney disease, unspecified whether stage 3a or 3b CKD This is a common fin ding on chest imaging with mild plaque build up on the aorta. Continue to work on good blood pressure and cholesterol control to reduce risk of stroke and heart attack Related to Atherosclerosis of aorta Continue to follow with eye doct or Related to Primary open-angle glaucoma, bilateral, mild stage Continue to work on increasing exercise such as walking. Continue to limit salt intake. Monitor your home blood pressure. Call our office if blood pressure is consistently over 140/90 Related to Hypertensive chronic kidney disease with stage 1 through stage 4 chronic kidney disease, or unspecified chronic kidney disease Continue Miralax and simethicone Related to Constipation, unspecified constipation type Continue with xarelto Related to Personal history of other venous thrombosis and embolism Continue with presen t daily controller medication (Symbicort 160/4.5, 2 puffs twice daily) Related to Moderate persistent asthma, uncomplicated Followup in 4 months Get regular exercise and eat a healthy diet Recommend the new Shingrix vaccine- check with insurance to find out what your insurance coverage is for this and go to the pharmacy for administration if you wish to proceed with vaccination. Related to Encounter for general adult medical examination without abnormal findings Continue with your p resent medication for acid reflux (Protonix 40 mg daily) as directed.Precautions from activity aide-Avoid evening consumption of alcohol, caffeine, chocolate, carbonated beverages (all the time if possible), fatty foods, tomato and tomato products.-No more then 6 oz. of liquid (or anything that will turn into liquid) per hour during the day. -No liquids at all after 7PM. -Move meds to 7PM instead of bedtime.-No water at bedside.-Sleep elevated on adjustable bed-If you must sleep on your side then sleep on left side only Related to Gastro-esophageal reflux disease without esophagitis Urinary Incontinence Fall Risk Prevention Dietary management e ducation, guidance, and counseling Related to Body mass index (BMI) 40.0-44.9, adult Continue with your p resent medication for acid reflux (Protonix 40 mg daily) as directed.Encouraged weight loss (gained some COVID pounds)Precautions: -Avoid evening consumption of alcohol, caffeine, chocolate, carbonated beverages (all the time if possible), fatty foods, tomato and tomato products.-No more then 6 oz. of liquid (or anything that will turn into liquid) per hour during the day. -No liquids at all after 7PM. -Move meds to 7PM instead of bedtime.-No water at bedside.-Sleep elevated on adjustable bed-If you must sleep on your side then sleep on left side only Related to Gastro-esophageal reflux disease without esophagitis We reviewed appropri ate environmental control measures for your rhinitis.Please continue with your present nasal medications or treatment that includes Xyzal 5 mg once daily and Fluticasone nasal spray, 2 puffs each nostril daily (for nasal congestion) but initially use saline rinse as directed for nasal sore spot. Call for increasing symptoms or difficulty with medications. Refills provided or call when more are needed. Related to Allergic rhinitis due to pollen Reviewed HOUSE DUST MITE control measures: Keep pillows for only a year, mattress/boxspring <7 years. No feather or down filled bedding.Consider removing [id number] carpet from bedroom.Lowest humidity possible indoors is ideal and should not be supplemented in the winter by humidifiers. Central air conditioning also reduces indoor humidity in the summer months. Related to Allergic rhinitis due to dust mite Pulmonary functions performed today with good effort were MODERATELY RESTRICTED. Asthma Control Test (normal >19) = 21. Asthma is overall stable. Continue with present daily controller medication (Symbicort 160/4.5, 2 puffs twice daily) unchanged. I reviewed the benefits and risks including side effects of this medication. We discussed the use of rescue medication (albuterol nebulizer/Proair). Please call for the frequent use of your rescue inhaler (beyond that discussed above) or difficulties with your asthma causing frequent night time awakeningsFlu shot later this fall. Related to Moderate persistent asthma, uncomplicated Medication management at goalcontinue meds increase exerciseannual eye examfollow up in 4 months Related to Type 2 or unspecified type diabetes mellitus continue symbicort Related to Mo derate persistent asthma, unspecified whether complicated contnue medslow salt diet Relate d to Essential (primary) hypertension Medication management Dietary management e ducation, guidance, and counseling Related to Body mass index (BMI) 38.0-38.9, adult Continue MiralaxFoll ow-up with GI doctor Related to Constipation, unspecified constipation type Continue with xarelto Related to Personal history of other venous thrombosis and embolism Continue following w [facility] and using meds as prescribed Related to Unspecified glaucoma Continue using inhalers as presc ribed Related to Moderate persistent asthma, unspecified whether complicated Continue medications We will check labs soon Related to Type 2 diabetes w diabetic peripheral angiopath w/o gangrene Continue medications Avoid foods that trigger symptoms Related to Gastro-esophageal reflux disease without esophagitis We will continue to monitor with labs. Related to Stage 3 chronic kidney disease Take your blood pres sure readings for a week and call us with these numbersTake your blood pressure in the morning one hour after taking blood pressure medicationsContinue to work on increasing exercise such as walking. Continue to limit salt intake. Monitor your home blood pressure. Call our office if blood pressure is consistently over 140/90 Related to Hypertensive chronic kidney disease with stage 1 through stage 4 chronic kidney disease, or unspecified chronic kidney disease will get repeat sleep study Rela saeid to BRETT (obstructive sleep apnea) contnue pepcid and p antoprazoleuse tums as needed Related to GERD without esophagitis sp revisionfollow up with ortho Related to Osteoarthritis of left knee, unspecified osteoarthritis type Medication management Dietary management e ducation, guidance, and counseling Related to Body mass index (BMI) 38.0-38.9, adult Continue taking 2 ta blets every eveningCheck fasting blood sugar every morning and bring a log with you Related to Diabetes mellitus with peripheral circulatory disorder Continue to work on increasing exercise such as walking. Continue to limit salt intake. Monitor your home blood pressure. Call our office if blood pressure is consistently over 140/90 Related to Unspecified essential hypertension Encourage healthy diet and exerc ise Related to Morbid (severe) obesity due to excess calories Proceed with schedul ed surgery on 04/17/2019HOLD YOUR XARELTO FOR 2 DAYSWe recommend postponing the steroid injections with Dr Albright until after surgery. Related to Pre-operative clearance Proceed with schedul ed surgery on 04/17/2019HOLD YOUR XARELTO FOR 2 DAYS Related to Chronic pain of left knee Dietary management e ducation, guidance, and counseling Related to Body mass index (BMI) 40.0-44.9, adult check labswill get r igth upper quadrant us Related to Right upper quadrant abdominal pain Dietary management e ducation, guidance, and counseling Related to Body mass index (BMI) 40.0-44.9, adult Medication management follow up with urology Related t o Hx of malignant neoplasm of prostate continue xarelto Related to Pers onal history of other venous thrombosis and embolism avoid triggerscontinue symbicort Related to Moderate persistent asthma with (acute) exacerbation bp controlledmonitor at homewith goal under 130/80 Related to Unspecified essential hypertension continue meds as needed Related to Gastroesophageal reflux disease, esophagitis presence not specified under controlcontinu e medslow carb diet Related to Diabetes mellitus with peripheral circulatory disorder pneumovax and flu to dayneeds shingrixincrease activityfollow up in 6 months Related to Encounter for general adult medical examination without abnormal findings Dietary management e ducation, guidance, and counseling Related to Body mass index (BMI) 40.0-44.9, adult Urinary Incontinence Medication management Fall Risk Prevention We will obtain a CT of your chest and call you with resultsIf symptoms worsen at any time, go to ER Related to Hemoptysis We will order a CT s can of chest, abdomen and pelvis to be performed immediately. We will obtain lab work today in our office and call you with resultsIf symptoms worsen at any time, go to ER Related to Generalized abdominal pain Dietary management e ducation, guidance, and counseling Related to Body mass index (BMI) 40.0-44.9, adult Pulmonary functions performed today with good effort were very RESTRICTED. Asthma Control Test (normal >19) = 16.Improved after bronchodilator nebulizer treatment in office in terms of lower RR and no further wheeze, minimal coughing. Will arrange for home nebs with albuterol to use as needed up to every 4 hours for cough or chest symptoms in place of the Proair. Call if not able to go 4 hours comfortably between albuterol doses. Continue the Symbicort (160/4.5) 2 puffs twice daily as before. Call if not improving in 48 hours for a course of oral steroids (Diabetes) Related to Moderate persistent asthma with (acute) exacerbation Medication management Pulmonary functions performed today with good effort were MODERATELY RESTRICTED. Asthma Control Test (normal >19) = 25. Asthma is overall stable. Continue with present daily controller medication (Symbicort 160/4.5, 2 puffs twice daily) unchanged. I reviewed the benefits and risks including side effects of this medication. We discussed the use of rescue medication (Ventolin) and an Asthma Action Plan. Please call for the frequent use of your rescue inhaler (beyond that discussed above) or difficulties with your asthma causing frequent night time awakenings Related to Moderate persistent asthma, uncomplicated Exam of ear is priyanka l and no surrounding adenopathy.Will see ENT soon for further evaluation Will discuss with PCP whether he may use some Ibuprofen for muscle pain associated with this. Related to Tinnitus of left ear Replace and discard bed pillows annually. Related to Allergic rhinitis due to dust mite as above. Related to Restr ictive airway disease We reviewed appropri ate environmental control measures for your rhinitis.Please continue with your present nasal medications or treatment that include Fluticasone nasal spray 2 puffs each nostril once daily and Cetirizine 10 mg once daily Call for increasing symptoms or difficulty with medications. Refills provided or call when more are needed. Related to Allergic rhinitis due to pollen Per GI Related to Gastr oesophageal reflux disease, esophagitis presence not specified Medication management stabkle on xarelto Related to Pe rsonal history of other venous thrombosis and embolism continue medscheck kidney functi on Related to Diabetes mellitus with peripheral circulatory disorder doing ok Related to Chron ic obstructive pulmonary disease, unspecified use silvadene as needed Related to Skin lesions Medication management Dietary management e ducation, guidance, and counseling Related to Body mass index (BMI) 40.0-44.9, adult recheck cbc Related to Anemi a, unspecified type will restart xarelto if cbc is o k Related to Personal history of other venous thrombosis and embolism steffenwill recheck cbc Related to Gastrointestinal hemorrhage, unspecified gastrointestinal hemorrhage type Medication management Assessments Type Assessment Date No Information Patient Care Teams Name Effective Dates (start - stop) Status Members No Information
--- OUTSIDE RECORDS SUMMARY | 2024-04-16 08:03 | XMS_ITS | Encounter Summary ---
Author Organization [facility] Healthcare Address [address] [place] [address] Care Team Providers Care Information Assurance Officer Name Role Phone Asad Engel MD Primary Care Provider [phone] Kodak Albright MD Unavailable Anirudh Weathers DO Primary Care Provider [phone] Asad Engel MD Primary Care Provider + [phone] Dajuan Weathers MD Unavailable [phone] Encounter Details Date Type Department Care Team (Late st Contact Info) Description 08/31/2022 Telephone [facility] Pain [address] [address] Wendie Romero, RN Social History Tobacco Use Types Packs/Day Years Used Date Smoking Tobacco: Never Smokeless Tobacco: Never Alcohol Use Standard Drinks/Week Comments Never 0 (1 standard drink = 0.6 oz pur e alcohol) AUDIT-C Answer Date Recorded Q1: How often do you have a drink containing alcohol? Never 09/03/2022 Q2: How many drinks containi ng alcohol do you have on a typical day when you are drinking? Patient does not drink Q3: How often do you have si x or more drinks on one occasion? 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 Gender Identity Not on file Sexual Orientation Not on file Occupation Industry Job Start Date Job End Date retired Not on file Not on file Not on file documented as of this encounter Functional Status documented as of this encounter Plan of Treatment Not on file documented as of this encounter Visit Diagnoses Not on filedocumented in this encounter Care Teams Information Assurance Officer Relationship Specialty Start Date End Date Asad Engel MD PCP - General 12/29/18 09/16/22 Anirudh Weathers DO [address] [address] PCP - General Orthopedic Surgery 09/17/22 10/14/22 Asad Engel MD PCP - General Internal Medicine 10/15/22 Kodak Albright MD Consulting Physician Pain Management 07/05/22 Dajuan Weathers MD [address] [place] [address] Referring Physician Pediatrics 10/15/22 documented as of this encounter
--- OUTSIDE RECORDS SUMMARY | 2024-04-16 08:03 | XMS_ITS | Referral Summary ---
Author Organization [facility] [place] Address [address] [facility] [place] [address] Care Team Providers Care Community Living Instructor Name Role Phone Asad Engel MD Primary Care Provider [phone] Source Comments [facility],non-owned Affiliates and Associated Physician Practices is amultiple site organization consisting of ambulatory clinics and hospital sitesin [place], [place], [place] and [place]. This disclosure is being madepursuant to the Care Everywhere program and may not contain all information available regarding this patient. Last updated 17.[facility] [place] Allergies Active Allergy Reactions Criticality Noted Date [...] 12/24/2018 11:46 AM CDT Plan of Treatment Not on file Care Teams Community Living Instructor Relationship Specialty Start Date End Date Asad Engel MD [address] [place] [id number] PCP - General 12/16/18
--- OUTSIDE RECORDS SUMMARY | 2024-04-16 08:03 | XMS_ITS | Encounter Summary ---
Author Organization [facility] Healthcare Address [address] [place] [address] Care Team Providers Care Single Stroke Preformer Name Role Phone Asad Engel MD Primary Care Provider [phone] Kodak Albright MD Unavailable Anirudh Weathers DO Primary Care Provider [phone] Asad Engel MD Primary Care Provider + [phone] Dajuan Weathers MD Unavailable [phone] Encounter Details Date Type Department Care Team (Late st Contact Info) Description 08/31/2022 Telephone [facility] Pain [address] [address] Wendie Romero, RN Social History [...] on file 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 Gender Identity Not on file Sexual Orientation Not on file Occupation Industry Job Start Date Job End Date retired Not on file Not on file Not on file documented as of this encounter Functional Status documented as of this encounter Plan of Treatment Not on file documented as of this encounter Visit Diagnoses Not on filedocumented in this encounter Care Teams Single Stroke Preformer Relationship Specialty Start Date End Date Asad Engel MD PCP - General 12/29/18 09/16/22 Anirudh Weathers DO [address] [address] PCP - General Orthopedic Surgery 09/17/22 10/14/22 Asad Engel MD PCP - General Internal Medicine 10/15/22 Kodak Albright MD Consulting Physician Pain Management 07/05/22 Dajuan Weathers MD [address] [place] [address] Referring Physician Pediatrics 10/15/22 documented as of this encounter
--- OUTSIDE RECORDS SUMMARY | 2024-04-16 08:03 | XMS_ITS | Encounter Summary ---
Author Organization [facility] Facility Care Team Providers Care Commission Auditor Name Role Phone Asad Engel MD Primary Care Provider [phone] Anirudh Weathers DO Primary Care Provider [phone] Asad Engel MD Primary Care Provider [phone] Kodak Albright MD Unavailable Anirudh Weathers DO Primary Care Provider [phone] Asad Engel MD Primary Care Provider + [phone] Dajuan Weathers MD Unavailable [phone] Encounter Details Date Type Department Care Team (Latest Contact Info) Description 04/15/2017 Orders Only [facility] ProviderNidia MD [address] [place] [address] Social History Tobacco Use Types Packs/Day Years Used Date Smoking Tobacco: Never Sex and Gender Information Value Date Recorded Sex Assigned at Not on file 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 Historical Provider Final Res ult * PROCEDURE - RESULT (04/15/2017 12:00 AM ENVIRONMENTAL ENGINEER) Narrative 04/15/2017 12:00 AM ENVIRONMENTAL ENGINEER Ordered by an unspecified provider. Historical Provider Final Res ult documented in this encounter Visit Diagnoses Not on filedocumented in this encounter Additional Health Concerns Infection Onset Date Last Indicated Resolved Time COVID: Suspected 01/17/2022 01/17/2022 01/17/2022 10:28 PM ENVIRONMENTAL ENGINEER documented as of this encounter Care Teams Commission Auditor Relationship Specialty Start Date End Date Asad Engel MD PCP - General 05/16/18 12/21/18 Anirudh Weathers DO PCP - General 12/22/18 12/28/18 Asad Engel MD PCP - General 12/29/18 09/16/22 Anirudh Weathers DO [address] [place] [address] PCP - General Orthopedic Surgery 09/17/22 10/14/22 Asad Engel MD PCP - General Internal Medicine 10/15/22 Kodak Albright MD Consulting Physician Pain Management 07/05/22 Dajuan Weathers MD [address] [place] [address] Referring Physician Pediatrics 10/15/22 documented as of this encounter
--- OUTSIDE RECORDS SUMMARY | 2024-04-16 08:03 | XMS_ITS | Encounter Summary ---
Author Organization [facility] Facility Care Team Providers Care Dispatcher Clerk Name Role Phone Asad Engel MD Primary Care Provider [phone] Anirudh Weathers DO Primary Care Provider [phone] Asad Engel MD Primary Care Provider [phone] Kodak Albright MD Unavailable Anirudh Weathers DO Primary Care Provider [phone] Asad Engel MD Primary Care Provider [phone] Dajuan Weathers MD Unavailable [phone] Encounter Details Date Type Department Care Team (Latest Contact Info) Description 03/06/2017 Orders Only [facility] ProviderNidia MD [address] [place] [address] Social History Tobacco Use Types Packs/Day Years Used Date Smoking Tobacco: Never Sex and Gender Information Value Date Recorded Sex Assigned at Not on file 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 us Historical Provider Final Res ult documented in this encounter Visit Diagnoses Not on filedocumented in this encounter Additional Health Concerns Infection Onset Date Last Indicated Resolved Time COVID: Suspected 01/17/2022 01/17/2022 01/17/2022 10:28 PM TOBACCO PRIZER documented as of this encounter Care Teams Dispatcher Clerk Relationship Specialty Start Date End Date Asad Engel MD PCP - General 05/16/18 12/21/18 Anirudh Weathers DO PCP - General 12/22/18 12/28/18 Asad Engel MD PCP - General 12/29/18 09/16/22 Anirudh Weathers DO [address] [address] PCP - General Orthopedic Surgery 09/17/22 10/14/22 Asad Engel MD PCP - General Internal Medicine 10/15/22 Kodak Albright MD Consulting Physician Pain Management 07/05/22 [place] [address] [place] [address] Referring Physician Pediatrics 10/15/22 documented as of this encounter
--- OUTSIDE RECORDS SUMMARY | 2024-04-16 08:03 | XMS_ITS | Continuity of Care Document ---
Author Organization [facility] Address [address] [facility] [address] [place] [address] Phone Care Team Providers Care Location Director Name Role Phone Dave Healy MD Unavailable Unavailable Allergies, Adverse Reactions, Alerts Substance Reaction Status Criticality No Known Allergies Active No Inform ation Medications Medication Instructions Dosage Effective Dates (start - stop) Status Comments Breo Ellipta 100 mcg-25 mcg/dose powder for inhalation inhale 1 puff by inhalation route every day at the same time each day 1.00 puff - Active albuterol sulfate HFA 90 mcg/actuation aerosol inhaler USE 2 INHALATIONS BY MOUTH EVERY 4 TO 6 HOURS NEEDED for cough, wheezing, or shortness of breath - Active pantoprazole 40 mg tablet,delayed release take 1 tablet by oral route 2 times every day 40 MG - Active Breo Ellipta 200 mcg-25 mcg/dose powder for inhalation inhale 1 puff by inhalation route every day at the same time each day 1.00 puff - No Longer Active ALBUTEROL HFA 90MCG/ACT (PA) USE 2 INHALATIONS BY MOUTH EVERY 4 TO 6 HOURS NEEDED - No Longer Active Procedures Procedure Date Health Risk Assesment Patient Focused Fe Est (Level 3) OFFICE/OUTPATIENT VISIT Fe Flow Volume Loop Est (Level 3) OFFICE/OUTPATIENT VISIT Au Est (Level 4) OFFICE/OUTPATIENT VISIT Ap Flow Volume Loop Est (Level 4) OFFICE/OUTPATIENT VISIT De Est (Level 4) OFFICE/OUTPATIENT VISIT Ju Est (Level 4) OFFICE/OUTPATIENT VISIT De Est (Level 4) OFFICE/OUTPATIENT VISIT Ju New (Level 4) OFFICE/OUTPATIENT VISIT Ap Advance Directives Directive Yes / No Effective Date File Name Other Directive No N/A N/A WARNING:The information contained in this [...] Diagnoses Date Provider Providers Copied on Encounter Est (Level 3) OFFICE/OUTPA TIENT VISIT [facility], [address] [place] [address], [id number], tel:[phone] [facility] asthma (chief complaint) Body mass index (BMI) 36.0-36.9, adultModerate persistent asthma Feb-0 - 5 Niraj Cheshil. [address] [place], [address], [place]. tel:[phone] Referring Provider: Mario Alberto Blackman, [address] [facility], [address] [place], [address]. tel:[phone] Est (Level 3) OFFICE/OUTPA TIENT VISIT [facility], [address] [place] [address], [id number], [place] tel:[phone] [facility] asthma (chief complaint) Body mass index (BMI) 36.0-36.9, adultModerate persistent asthma Sep-0 -202 4 Niraj Cheshil. [address] [place], [address], [place]. tel:[phone] Referring Provider: Asad Engel, [address] [place] [address], [id number]. tel:[phone] Est (Level 4) OFFICE/OUTPA TIENT VISIT [facility], [address] [place] [address], [id number], tel:[phone] [facility] asthma (chief complaint) Body mass index (BMI) 36.0-36.9, adultModerate persistent asthmaGERD w/o esophagitisChron ic rhinitis May- 4 Niraj Cheshil. [address], [place], [address], [place]. tel:[phone] Referring Provider: [place], [address]. tel:[phone] [facility], [address] [place] [address], [id number], tel:[phone] [facility] No Information 4 Niraj Ches[address]. [address], [place], [address], [place]. tel:[phone] Referring Provider: [place], [address]. tel:[phone] Est (Level 4) OFFICE/OUTPA TIENT VISIT [facility], [address] [place] [address], [id number], tel:[phone] [facility] cough (chief complaint) Body mass index (BMI) 38.0-38.9, adultModerate persistent asthmaChronic rhinitisGERD w/o esophagitisCough , unspecified 3 Niraj Cheshil. [address], [place], [address], [place]. tel:[phone] Referring Provider: [place], [address]. tel:[phone] Est (Level 4) OFFICE/OUTPA TIENT VISIT [facility], [address] [place] [address], [id number], tel:[phone] [facility] allergies and asthma (chief complaint) Body mass index (BMI) 38.0-38.9, adultModerate persistent asthmaChronic rhinitisGERD w/o esophagitis Jul-0 8 3 Niraj Cheshil. [address], [place], [place], [facility], . tel:[phone] Referring Provider: Marti Wilhelm [place], [place], [facility]. tel:[phone] [facility], [address] [place] [address], [address] [place] [address], tel:[phone] [facility] No Information 3 Niraj Ches[address]. [address], [place], [place], [facility], . tel:[phone] Referring Provider: Asad Engel, [address] [place], [place], [facility]. tel:[phone] Est (Level 4) OFFICE/OUTPA TIENT VISIT [facility], [address] [place] [address], [id number], tel:[phone] [facility] asthma (chief complaint) Body mass index (BMI) 36.0-36.9, adultModerate persistent asthmaGERD w/o esophagitisChron ic rhinitis Jan-0 2 Niraj Cheshil. [address], [place], [place], [facility], . tel:[phone] Referring Provider: Asad Engel [address] [place] [address], [facility]. tel:[phone] Est (Level 4) OFFICE/OUTPA TIENT VISIT [facility], [address] [place] [address], [id number], tel:[phone] [facility] allergies and asthma (chief complaint) Body mass index (BMI) 36.0-36.9, adultModerate persistent asthmaChronic rhinitisGERD w/o esophagitis Jul-0 2 Niraj Cheshil. [address], [place], [place], [facility], [place]. tel:[phone] Referring Provider: Asad Engel, [address] [place], [address]. tel:[phone] New (Level 4) OFFICE/OUTPA TIENT VISIT [facility], [address], [id number], tel:[phone] [facility] allergies and asthma (chief complaint) Body mass index (BMI) 37.0-37.9, adultModerate persistent asthmaChronic rhinitis May- 2 Niraj Cheshil. [address] [facility], [place], [address], [place]. tel:[phone] Referring Provider: Asad Engel, [address] [place], [address]. tel:[phone] Family History Family Member Type Diagnosis Age At Onset No Information Payers Payer name Insurance type Covered libertarian ID Authoriza tion(s) [place] [id number] [facility] [id number] Social History Type Description Quantity Date Captured Comments Alcohol Use Details Unknown Caffeine Use Details Unknown Tobacco Use Status No Information Smoking Status Never smoker Non-Smoking Tobacco Use Details : No Details Available : No Details Available Sex Male Vital Signs Date / Time: Height Weight BMI Pulse Rate Blood Pressure Temperature Respiratory Rate Body Surface Area Head Circumference Head Circ. Percentile Wt./Denys. Percentile BMI percentile Pulse Ox Inhaled Ox 1:40 PM 66.00 in 103.147 kg (227.40 lbs) 36.7 0 kg/m eter (2) 95 /min 138/76 mm[Hg] 98.70 F 2.19 meter(2) 97 % Chief Complaint And Reason For Visit From encounter dated '04/02/2024 13:40'. asthma (chief complaint). Description: LV: 824He presents for follow up of his asthma and cough.He previously followed with Dr. Vitaliy Hameed. Asthma - ACT: He is on albuterol PRN (used perhaps once weekly). He had previously been on Breo but stopped this since our last visit - they are unsure of timing. We are avoiding LAMA because of previous episodes of urinary retention.No wheezingor nocturnal symptoms. No exertional limitations. No interval ED/UC visits nor any steroid bursts since our last visit.They did see Pulmonology, Dr. Maddox. He had a CT scan, which would reportedly normal. He does have GERD and has been on pantoprazole which controls symptoms. Data10/24Full PFT w/ DLCO*Decreased FEV1 and FVC consistent with restrictive pattern*Good response to bronchodilators*Gas exchange capacity severely reduced Reason For Referral Reason For Referral No Information Plan Of Treatment Date Type Action Status Appointment Esthela Mora 6 Mo F/up BOOKED History Of Present Illness Encounter Date Complaint History Of Prese nt Illness asthma LV: 24He pre sents for follow up of his asthma and cough. He previously followed with Dr. Vitaliy Hameed. Asthma - ACT: He is on albuterol PRN (used perhaps once weekly). He had previously been on Breo but stopped this since our last visit - they are unsure of timing. We are avoiding LAMA because of previous episodes of urinary retention.No wheezing or nocturnal symptoms. No exertional limitations. No interval ED/UC visits nor any steroid bursts since our last visit.They did see Pulmonology, Dr. Maddox. He had a CT scan, which would reportedly normal. He does have GERD and has been on pantoprazole which controls symptoms. Data1024Full PFT w/ DLCO*Decreased FEV1 and FVC consistent with restrictive pattern*Good response to bronchodilators*Gas exchange capacity severely reduced asthma LV: 24He pre sents for follow up of his asthma and cough. He previously followed with Dr. Vitaliy Hameed. CoughHe has a cough intermittently. This is a dry cough that resolves. It comes and goes, none in the last few days. He does have GERD and has been on protonix which controls symptoms. AsthmaHe is on Breo 200/25 c g 1 puff daily and albuterol PRN (used less than once per week). We are avoiding LAMA because of previous episodes of urinary retention.No wheezing or nocturnal symptoms. No exertional limitations. No interval ED/UC visits nor any steroid bursts since our last visit. asthma LV: 02/05/23He p resents for follow up of his asthma and rhinitis. He previously followed with Dr. Vitaliy Hameed. Tim has a cough intermittently. This is a dry cough that resolves. He does have GERD and has been on protonix 40 mg BID. He relays these symptoms are controlled. Asthma - ACT: He is on Breo 100/25 c g 1 puff daily and albuterol PRN (used twice daily over the last few months). We are avoiding LAMA because of previous episodes of urinary retention.No wheezing or nocturnal symptoms. No exertional limitations. No interval ED/UC visits nor any steroid bursts since our last visit.Chronic RhinitisHe is not having nasal congestion or rhinorrhea. He is not on any medications. cough LV: 08/02/22He pre sents for follow up of his asthma and rhinitis. He previously followed with Dr. Vitaliy Hameed. Tim has a dry cough that has worsened since Oct 2022. This tends to occur most frequently around mealtime. He reports that albuterol improves his cough. He does have GERD and has been on protonix 40 mg BID and pepcid PRN (not used frequently). Family member reports audible wheezing when he eats and worries about aspiration. Asthma - ACT: He is on Breo 100/25 c g 1 puff daily and albuterol PRN (used twice daily over the last few months, for cough as above). Family member is not sure he is actually taking Breo. No wheezing or nocturnal symptoms. No exertional limitations. No interval ED/UC visits nor any steroid bursts since our last visit.Chronic RhinitisHe is not having nasal congestion or rhinorrhea. He is not on any medications. allergies and asthma LV: 02/01/22 He presents for follow up of his asthma and rhinitis. He previously followed with Dr. Vitaliy Hameed. AsthmaHe is on Breo 100/25 c g 1 puff daily and albuterol PRN (not used in > 1 month). He has been doing well on the Breo, which he ran out of perhaps 2 months ago. He has had increased cough off of the Breo. No wheezing or nocturnal symptoms. No exertional limitations. No interval ED/UC visits nor any steroid bursts since our last visit.Chronic RhinitisHe is not having nasal congestion or rhinorrhea. He is not on any medications. He has GERD on protonix 40 mg BID and pepcid PRN (not used regularly). His GERD is well controlled.His back pain has been problematic. He is getting steroid injections in his back tomorrow. He is hopeful that this will be helpful. asthma LV: 08/03/21He pre sents for follow up of asthma and rhinitis. He previously followed with Dr. Vitaliy Hameed. Asthma - ACT: He is on Breo 100/25 c g 1 puff daily [this was previously reported as 200/25 but only the 100 mcg strength has been sent in the past] and albuterol PRN (not used in > 1 month). He has been doing well on the Breo.He has occasional cough. He does not wake from sleep with cough or wheeze. No limitations with activity. No interval ED/UC visits nor any steroid bursts since that time.Chronic RhinitisHe is not having nasal congestion or rhinorrhea. He is not on any medications. He has GERD on protonix 40 mg BID and pepcid PRN (not used regularly). His GERD is well controlled.[facility] and difficulty urinating. He was admitted x 2 days. He is back to normal now. allergies and asthma LV: 06/15/21 He presents for follow up of asthma and rhinitis. He previously followed with Dr. Vitaliy Hameed. Asthma - ACT: He is on Breo 200/25 c g 1 puff daily and albuterol PRN (not used since the last visit). He has been doing much better since Breo was started.He has not been having any cough at all. He has not had any wheezing at night or during the day as he has had before. No limitations with activity. No interval ED/UC visits nor any steroid bursts since that time.Chronic RhinitisHe is no longer on Xhance 1 SEN BID. He is not having nasal congestion or rhinorrhea.He has GERD on protonix 40 mg BID. He reports some nocturnal eructation. allergies and asthma He previous ly followed with Dr. Vitaliy Hameed. Asthma - ACT: patient has asthma on Xhance nasal spray. He reports using this as treatment for his breathing symptoms. I asked about previous inhalers, and showed them a chart with images of different inhalers to radio mechanic helper in identifying previous treatments. He suggested Alvesco or Flovent, but not with much confidence.He also has albuterol used PRN about twice daily. He was diagnosed with asthma >30 years ago. The patient has never been hospitalized for asthma. Currently, they have no exertional limitations 2/2 asthma symptoms. He has nocturnal wheezing but it does not wake him from sleep. He does have baseline wheezing throughout the day. No ED/PCP/UC visits and one oral steroid burst because of asthma in the last year (about 1 year ago).He has GERD on protonix 40 mg BID. His reflux is well controlled.RhinitisThe patient has a history of perennial rhinitis with seasonal worsening in spring/fall. The symptoms include nasal congestion and cough w/o ocular pruritus and tearing. Currently, he is on Xhance 1 SEN BID which does provide adequate relief. The patient does not have a history of frequent sinus infections.He had allergy PST ~5 years ago performed by Dr. Hameed. The patient does not recall the results of this testing.He denies history of eczema or food allergy. PMH: T2DM, HTN, CKD, CAD, BPH, VTE (on Xarelto), prostate cancer, CVAPSH: ingrown toe nail surgery, L lumbar radiculopathyMedication Allergies: NKDAFH: unknown/adoptedSHTobacco: Never smoker Environmental HistoryLives in a house (built 1955) w/ central air/forced heat, w/o evidence of mold/water damageFlooring in Bedroom: carpetPets: dog x 1[-]Dust Mite Covers on Mattress/PillowsDataI reviewed outside records available in the EMR Functional Status Date Functional Assessmen t No Information Instructions Date Instruction Additional Infor thang Giving encouragement to exercise Related to Body mass index [BMI] 36.0-36.9, adult - I recommend a Full Pulmonary Function Test- this can be done at [facility] if desired. I have provided a handwritten order- please confirm that the Respiratory (Pulmonology) Care lab at the hospital is in network with your insurance. If it is not, please contact the insurance for a recommendation on an in-network pulmonary function lab Related to Moderate persistent asthma Giving encouragement to exercise Related to Body mass index [BMI] 36.0-36.9, adult Giving encouragement to exercise Related to Body mass index [BMI] 36.0-36.9, adult - for concerns about aspiration, please see the primary care physician Related to GERD w/o esophagitis Giving encouragement to exercise Related to Body mass index [BMI] 38.0-38.9, adult Giving encouragement to exercise Related to Body mass index [BMI] 38.0-38.9, adult Giving encouragement to exercise Related to Body mass index [BMI] 36.0-36.9, adult Giving encouragement to exercise Related to Body mass index [BMI] 36.0-36.9, adult - start Breo inhaler 1 puff daily- continue albuterol 2 puffs every 4 hours as needed for cough, wheeze, or shortness of breath. Also, take 2 puffs 15-20 minutes prior to exertion Related to Moderate persistent asthma - continue Xhance nasal spray Re lated to Chronic rhinitis Giving encouragement to exercise Related to Body mass index [BMI] 37.0-37.9, adult Assessments Type Assessment Date assessment Body mass index [BMI] 36.0-36.9, adult assessment Moderate persistent asthma Feb-0 Patient Care Teams Name Effective Dates (start - stop) Status Members No Information
--- OUTSIDE RECORDS SUMMARY | 2024-04-16 08:03 | XMS_ITS | Clinical Summary ---
Author Organization [facility] Address [address] [place] [address] Care Team Providers Care Nuclear Instructor Name Role Phone Kodak Albright MD Unavailable Asad Engel MD Primary Care Provider [phone] Dajuan Weathers MD Unavailable [phone] Allergies Active Allergy Reactions Criticality Noted Date Comments Albumin Products Rash Medium 09/23/2018 Diclofenac Sodium Rash Medium 09/23/2018 Iodine Other (See comments) High 01/11/2016 Unknown - pt states thinks more than 50 yrs ago - not sure of circumstances or what happened Levofloxacin Other (See comments) Low 02/23/2021 Nsaids (Non-Steroidal Anti-Inflammatory Drug) Other (See comments) Low 04/24/2021 Patient states cant take due to other medication Medications metFORMIN (GLUCOPHAGE) 500 mg tablet Take 4 tablets (2,000 mg total) by mouth nightly Active albuterol sulfate (PROAIR HFA INHAL) Inhale 2 sprays every 4 (four) hours Active rivaroxaban (XARELTO) 20 mg tablet Take 1 tablet (20 mg total) by mouth daily Active atorvastatin (LIPITOR) 20 mg tablet Take 1 tablet (20 mg total) by mouth daily Active ALPHAGAN P 0.15 % ophthalmic solution Administer 1 drop into both eyes 3 (three) times a day 9 Active fluticasone propionate (FLONASE) 50 mcg/actuation nasal spray Administer 1 spray into each nostril daily Active glimepiride (AMARYL) 4 mg tablet Take 1 tablet (4 mg total) by mouth daily before breakfast Active lisinopril (PRINIVIL,ZESTR IL) 5 mg tablet Take 1 tablet (5 mg total) by mouth daily Active SITagliptin (JANUVIA) 100 mg tablet Take 1 tablet (100 mg total) by mouth daily Active tamsulosin (FLOMAX) 0.4 mg extended release capsule Take 1 capsule (0.4 mg total) by mouth daily Active famotidine (PEPCID) 20 mg tablet Take 1 tablet (20 mg total) by mouth 2 (two) times a day Active metoprolol XL (TOPROL-XL) 50 mg extended release tablet Take 1 tablet (50 mg total) by mouth daily Active mirabegron ER (MYRBETRIQ) 25 mg tablet extended release 24 hr Take 1 tablet (25 mg total) by mouth daily Active hydroCHLOROthia zide (HYDRODIURIL) 12.5 mg tablet Take 1 tablet (12.5 mg total) by mouth daily 30 tablet 6 0 Active ferrous sulfate 325 mg (65 mg of elemental iron) tabletIndicatio ns:Iron Deficiency Anemia Take 1 tablet (325 mg total) by mouth daily with breakfast Active hydrocortisone 2.5 % cream Apply topically every 12 (twelve) hours 1 Active triamcinolone (NASACORT) 55 mcg nasal inhaler take 2 sprays intranasally in each nostril once daily 1 Active oxybutynin XL (DITROPAN-XL) 5 mg 24 hr tablet Take 1 tablet (5 mg total) by mouth daily 2 Active gabapentin (NEURONTIN) 100 mg capsule Take 2 capsules (200 mg total) by mouth 3 (three) times a day 180 capsule 11 3 Active Additional Information Patient taking differently: 300 mgoral 3 times daily, Reported on 10/11/2022 omeprazole (PriLOSEC) 20 mg capsule TAKE 1 CAPSULE BY MOUTH DAILY BEFORE BREAKFAST. 90 capsule 1 4 Active HYDROcodone-vadim taminophen (NORCO) 5-325 mg per tabletIndicatio ns:Pain Take 1 tablet by mouth every 6 (six) hours as needed for pain 6 tablet 4 Active tiZANidine (ZANAFLEX) 2 mg tablet Take 1 to 2 tablets as needed every 8 hours for pain 90 tablet 4 Active amantadine HCL 100 mg tablet Take 50 mg by mouth 2 (two) times a day 4 07/18/19 25 Active fluticasone furoate-vilante roL (Breo Ellipta) 200-25 mcg/dose diskus inhaler Inhale 1 puff daily 4 Active furosemide (LASIX) 40 mg tablet Take 1 tablet (40 mg total) by mouth daily 4 Active Active Problems Problem Noted Date Diagnosed Date Abdominal pain 05/22/2022 Assessment & Plan (05/22/2022 11:20 AM CDT): Was in ER for epigastric pain and dysphagia. Dull pain, constant, no radiation, associated with reflux and dysphagia. Dysphagia to solids. Given maalox and viscous lidocaine which helped. Labs with normal lipase and LFTs. CT scan with no acute process. Overall doing well since leaving ER. -avoid NSAIDs -continue PPI daily -schedule EGD -The risks (risks of bleeding, infection, perforation requiring surgery, missed polyps/cancer, dental injury, aspiration pneumonia, anesthesia complications such as drug reaction and cardiopulmonary complications including rare chance of ), benefits, and alternatives of the planned procedure were explained to the patient who understands and consents to having procedure done. Helicobacter pylori infection 05/22/2022 Assessment & Plan (05/22/2022 11:23 AM CDT): Noted on EGD by Dr. Molina 2019, treated. -will check for eradication on EGD Dysphagia 05/22/2022 Assessment & Plan (05/22/2022 11:21 AM CDT): Intermittent dysphagia to solids -EGD as above. 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 MAJO (acute kidney injury) 01/17/2022 Abnormal resting electrocardiogram findings 08/2021 Acute renal failure syndrome 11/01/2021 Acute respiratory failure with hypoxia ([facility]) 11/01/2021 Asthma complicating , antepartum 2021 Benign prostatic hyperplasia 11/01/2021 Congestive heart failure wit h left ventricular diastolic dysfunction ([facility]/HCC) 11/01/2021 DVT (deep venous thrombosis) ([facility]) Overview (11/01/2021): Last Assessment & Plan: Remote hx of DVT Has been on xarelto for a few years now Exercise-induced tachycardia 11/01/2021 Gastroesophageal reflux disease with esophagitis 11/01/2021 Gastrointestinal hemorrhage 11/01/2021 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 11/01 History of deep venous thrombosis 11/01/2021 History of gastrointestinal diverticular hemorrh age 0911/01/2021 Hypercalcemia of malignancy 11/01/2021 Hyperosmolar hyponatremia 11/01/2021 Primary osteoarthritis of right knee 11/01/2021 Severe thrombocytopenia 11/01/2021 Sleep-related hypoxia 11/01/2021 Chronic bilateral low back pain without sciatica 11/01/2021 Klebsiella infection 08/04/2021 Cerebrovascular accident (CVA) 07/04/2021 Overview (11/01/2021): Last Assessment & Plan: MRI 12/2020 revealing -Subacute infarct isocentric to the left frontal lobe Echo with normal LVSF and no LV thrombus, bubble study neg No history of atrial fibrillation although this is less likely the cause he has been on AC for years now EM ordered to be completed Carotid dop reveal no stenosis RCA and 1-49% LCA Medical management continued Essential (primary) hypertension 07/04/2021 Overview (11/01/2021): Last Assessment & Plan: Blood pressure is well controlled with no changes in regimen at this time Encouraged to continue to monitor at home and log and call office with any concerns in future. Stage 3 chronic kidney disease 06/10/2019 S/P revision of total knee, left 05/14/2019 Overview (01/24/2020): April 17, 2019 Assessment & Plan (01/24/2020 5:03 PM VEHICLE AND EQUIPMENT CLEANER): Differential diagnosis for persistent pain would include infection. We have already aspirated the knee and sent Synovasure which came back negative for infection. Possibility of recurrence loosening however x-rays look good. Possibility of referred pain from the back since he has had epidural injections which did give him left lower extremity relief. Possibility of tendinitis with increased activity. Possibility of referred pain from the hip. X-rays show mild femoral acetabular impingement with early arthritis. Could consider injection into the hip joint. Arterial sclerotic disease is noted on x-ray. Consider vascular consult. Patient has a history of diabetes and pain could be from diabetic neuropathy. At this time will obtain sed rate, C-reactive protein and CBC. If these are elevated will repeat Synovasure. Begin physical therapy for modalities for the tendinitis. Patient understands I will not be here after January 26, 2020. Alternate physician names were given. Patient will follow up with Dr. Michaud in 6 weeks. Assessment & Plan (09/06/2019 8:49 PM CDT): No infection previous. Aspiration did give him some relief. Scheduled for injection on low back on Saturday. Continue progressive range of motion and strengthening per total knee arthroplasty protocol Assessment & Plan (08/02/2019 4:59 PM CDT): Persistent swelling. Knee is aspirated. 30 cc of synovial fluid is aspirated sent for culture. Assessment & Plan (05/14/2019 11:43 AM CDT): Today we reviewed the patient's x-rays and I removed his Steri-strips. His fracture is healing nicely. He can be full weight bearing. Will continue physical therapy. Patient will follow-up in 1 month. Body mass index (BMI) of 30.0-30.9 in adult 02/26 Assessment & Plan (01/24/2020 5:02 PM VEHICLE AND EQUIPMENT CLEANER): We discussed the adverse effects of extra weight on osteoarthritis. The only thing proven to slow the progression of osteoarthritis as weight loss. Every 1 lb lost, relieves 4-6 lb of stress across the knee. Continue weight loss through diet and exercise. Consider low carbohydrate diet. Assessment & Plan (08/02/2019 4:59 PM CDT): We discussed the adverse effects of extra weight on osteoarthritis. The only thing proven to slow the progression of osteoarthritis as weight loss. Every 1 lb lost, relieves 4-6 lb of stress across the knee. Continue weight loss through diet and exercise. Consider low carbohydrate diet. Assessment & Plan (05/14/2019 10:55 AM CDT): We discussed the adverse effects of weight on osteoarthritis and total joint arthroplasty Assessment & Plan (03/23/2019 4:16 PM VEHICLE AND EQUIPMENT CLEANER): We discussed the adverse effects of weight on osteoarthritis and total joint arthroplasty Lumbar degenerative disc disease 12/01/2018 Assessment & Plan (09/06/2019 8:49 PM CDT): Patient gets relief with injections to the lumbar spine. Scheduled for another shot on Saturday. Recommend consultation with Dr. Ramos Assessment & Plan (08/02/2019 4:58 PM CDT): History of severe spinal stenosis. Left lower extremity pain from his back to his feet. Certainly pain could come from his back, diabetic neuropathy, revision total knee arthroplasty. Repeat MRI lumbar spine then possible spine consult Assessment & Plan (03/23/2019 4:15 PM VEHICLE AND EQUIPMENT CLEANER): Currently being treated by pain management Assessment & Plan (02/12/2019 2:51 PM VEHICLE AND EQUIPMENT CLEANER): After having a steroid injection to lumbar spine he has had a fair amount of relief of his left lower extremity pain discomfort. Unfortunately when he went to Dr. Vines for his consultation for his knee that I believe was infected, he was not having any pain or discomfort so he was released without treatment Assessment & Plan (12/01/2018 1:18 PM CDT): Continue with pain management. Follow up in 6 weeks. Well child examination 07/30/2018 Left leg swelling 07/30/2018 Assessment & Plan (09/06/2019 8:49 PM CDT): No evidence of infection or DVT. History of total knee arthroplasty, left 019 Assessment & Plan (02/12/2019 2:52 PM VEHICLE AND EQUIPMENT CLEANER): Previous aspiration suggested that there might be an infection and we sent him off for orthopedic consultation. Unfortunately for the 2nd opinion he was post a lumbar injection and was not really having any leg pain or discomfort at all. However, he is much more painful today and swollen. Will repeat the aspiration and see if that was an anomaly. If it is or comes back positive again may consider repeat consultation with Dr. Vines Assessment & Plan (12/01/2018 1:17 PM CDT): Increasing left knee pain and discomfort. We discussed the risks, benefits and alternatives. At this point in time his left leg pain could be coming from the knee in which case we aspirated today and will send for protein, glucose, cell count, cytology, crystals, Gram stain and culture and sensitivity. If no significant findings may consider bone scan to look for loosening. He has an appointment with pain management for further evaluation. Thom lesion, chronic 05/16/2018 Other chronic pain 05/16/2018 Diabetic neuropathy 08/14/2017 Assessment & Plan (02/12/2019 2:52 PM VEHICLE AND EQUIPMENT CLEANER): May also be contributing to some of his lower extremity pain Assessment & Plan (12/01/2018 1:19 PM CDT): Certainly some of the pain could be due to diabetic neuropathy. Consider EMG NCV in the future if bone scan were to come back without loosening. Primary osteoarthritis of right hip 08/14/2017 Type 2 diabetes mellitus wit h diabetic nephropathy ([facility]) 08/14/2017 Assessment & Plan (01/24/2020 5:03 PM VEHICLE AND EQUIPMENT CLEANER): Possibility of diabetic neuropathy. Consider EMG NCV in the future. Assessment & Plan (08/02/2019 4:59 PM CDT): Possibility of diabetic neuropathy consider EMG NCV in the future. Increased risk for infection, aspirate the knee to make sure there is no infection Assessment & Plan (05/14/2019 10:55 AM CDT): Increases the risk for postoperative complication Assessment & Plan (03/23/2019 4:15 PM VEHICLE AND EQUIPMENT CLEANER): Increases the risk for postoperative complication Assessment & Plan (02/12/2019 2:51 PM VEHICLE AND EQUIPMENT CLEANER): Increases risk for postoperative complication Post-phlebitic syndrome 12/19/2015 Hyperlipidemia 04/11/2011 Overview (11/01/2021): Last Assessment & Plan: Statin therapy is well tolerated without any reports of Statin-associated muscle symptoms ([facility]). Target goal of LDL < 70 Component 12/12/20 CHOLESTEROL 119 HDL 37 TRIGLYCERIDE 61 LDL (CALCULATED) 70 Gastroesophageal reflux disease 09/19/2010 Assessment & Plan (05/22/2022 11:21 AM CDT): Chronic, well controlled with PPI daily. -continue PPI daily -RECOMMENDATIONS given include: anti-reflux maneuvers, Avoid acidic foods like oranges and tomatoes., avoidance of spicy foods, avoid eating 3-4 hours before bed, elevation of the head of the bed, and weight loss Encounters Date Type Department Care Team Description 03/30/2024 9:00 AM VEHICLE AND EQUIPMENT CLEANER Lab [facility] Building [address] [place] [id number] Shortness of breath; Asthma, unspecified asthma severity, unspecified whether complicated, unspecified whether persistent 03/30/2024 7:56 AM VEHICLE AND EQUIPMENT CLEANER - 03/30/2024 11:59 PM VEHICLE AND EQUIPMENT CLEANER Hospital Encounter [facility] Building [address] [place] [id number] Restrictive lung disease; Abnormal PFT Discharge Disposition: Discharge to home or self care 03/26/2024 2:15 PM VEHICLE AND EQUIPMENT CLEANER Therapy [facility] OP Physical Therapy [address] [place] [phone] Myra Burnham, PT Chronic bilateral low back pain, unspecified whether sciatica present (Primary Dx) 02/24/2024 1:30 PM VEHICLE AND EQUIPMENT CLEANER Therapy [facility] OP Physical Therapy [address] [place] [id number] Hany Mcdonough, REMEDIATION BIOANALYTICS CONSULTANT Chronic bilateral low back pain, unspecified whether sciatica present (Primary Dx) 02/17/2024 1:30 PM VEHICLE AND EQUIPMENT CLEANER Therapy [facility] OP Physical Therapy [address] [place] [phone] Sabas Lacy, REMEDIATION BIOANALYTICS CONSULTANT Chronic bilateral low back pain, unspecified whether sciatica present (Primary Dx) 02/13/2024 7:51 AM VEHICLE AND EQUIPMENT CLEANER - 02/13/2024 11:59 PM [facility] Hospital Encounter [facility] Pain Mgmt [address] [place] [address] [address] [place] [address] Kodak Albright MD Bulge of lumbar disc without myelopathy (Primary Dx); Neural foraminal stenosis of lumbar spine; Radiculopathy, lumbar region Discharge Disposition: Discharge to home or self care 02/12/2024 3:00 PM VEHICLE AND EQUIPMENT CLEANER Therapy [facility] OP Physical Therapy [address] [place] [phone] Sabas Lacy, REMEDIATION BIOANALYTICS CONSULTANT Chronic bilateral low back pain, unspecified whether sciatica present (Primary Dx) 02/05/2024 2:15 PM VEHICLE AND EQUIPMENT CLEANER Therapy [facility] OP Physical Therapy [address] [place] [address] Shagufta Araya, REMEDIATION BIOANALYTICS CONSULTANT Chronic bilateral low back pain, unspecified whether sciatica present (Primary Dx) 02/05/2024 Telephone [facility] Pul[facility] [address] [phone] CharleyheideSelene villalta, CRUSHER FEEDER 02/03/2024 1:30 PM VEHICLE AND EQUIPMENT CLEANER Therapy [facility] OP Physical Therapy [address] [place] [phone] Alyssa Villarreal, PT Chronic bilateral low back pain, unspecified whether sciatica present (Primary Dx) 01/29/2024 1:30 PM VEHICLE AND EQUIPMENT CLEANER Therapy [facility] OP Physical Therapy [address] [place] [phone] Sabas Lacy, REMEDIATION BIOANALYTICS CONSULTANT Chronic bilateral low back pain, unspecified whether sciatica present (Primary Dx) 01/27/2024 2:15 PM VEHICLE AND EQUIPMENT CLEANER Therapy [facility] OP Physical Therapy [address] [place] [phone] Hany Mcdonough, REMEDIATION BIOANALYTICS CONSULTANT Chronic bilateral low back pain, unspecified whether sciatica present (Primary Dx) 01/20/2024 3:00 PM VEHICLE AND EQUIPMENT CLEANER Therapy [facility] OP Physical Therapy [address] [place] [phone] Sabas Lacy, REMEDIATION BIOANALYTICS CONSULTANT Chronic bilateral low back pain, unspecified whether sciatica present (Primary Dx) 01/15/2024 3:45 PM VEHICLE AND EQUIPMENT CLEANER Therapy [facility] OP Physical Therapy [address] [place] [id number] Sabas Lacy, REMEDIATION BIOANALYTICS CONSULTANT Chronic bilateral low back pain, unspecified whether sciatica present (Primary Dx) from Last 3 Months Surgical History Surgery Date Site/Laterality Comments HAND SURGERY Left left long trigger finger THUMB SURGERY EXC RT THUMB MUCOUS CYST REVISION TOTAL KNEE ARTHROPLASTY 05/01/2017 Right TOTAL KNEE ARTHROPLASTY 04/16/2019 Left Medical History Medical History Date Comments Hypertension Hypercholesteremia Diabetes mellitus (HCC) Allergic rhinitis Asthma Hx of blood clots Glaucoma PVD (peripheral vascular disease) ([facility]) Lumbar facet arthropathy Lumbar spondylosis Lumbar stenosis Curvature of spine Thoracic spondylosis Scoliosis deformity of spine-rotary Anterolisthesis of lumbar spine Family History Medical History Relation Name Comments Cancer Father Heart disease Father Cancer Mother Heart disease Mother Stroke Mother Cancer Sister Relation Name Status Comments Father Mother Sister Social History Tobacco Use Types Packs/Day Years Used Date Smoking Tobacco: Never Smokeless Tobacco: Never Tobacco Cessation:Counseling Given: Not Answered Alcohol Use Standard Drinks/Week Comments Never 0 (1 standard drink = 0.6 oz pur e alcohol) AUDIT-C Answer Date Recorded Q1: How often do you have a drink containing alc ohol? Never 10/16/2022 Average Number of Drinks Not on file 023 Q3: How often do you have si x or more drinks on one occasion? Never 10/16/2022 Personal Safety Answer Date Recorded Have you ever been in or are you currently in a harmful physical or emotional relationship or is someone making you feel afraid or unsafe? Denies 06/23/2023 Sex and Gender Information Value Date Recorded Sex Assigned at Not on file Legal Sex Male 7:27 PM VEHICLE AND EQUIPMENT CLEANER Gender Identity Not on file Sexual Orientation Not on file Occupation Industry Job Start Date Job End Date retired Not on file Not on file Not on file Obstetrics History Last Filed Vital Signs Vital Sign Reading Time Taken Comments Blood Pressure 129/55 02/13/2024 8:07 AM VEHICLE AND EQUIPMENT CLEANER Pulse 86 02/13/2024 8:07 AM VEHICLE AND EQUIPMENT CLEANER Temperature 36.9 C (98.4 F) 02/13/2024 8:07 AM VEHICLE AND EQUIPMENT CLEANER Respiratory Rate 18 02/13/2024 8:07 AM VEHICLE AND EQUIPMENT CLEANER Oxygen Saturation 94% 02/13/2024 8:07 AM VEHICLE AND EQUIPMENT CLEANER Inhaled Oxygen Concentration - - Weight 104.4 kg (230 lb 1.6 oz) 02/13/2024 8:07 AM VEHICLE AND EQUIPMENT CLEANER Height 167.6 cm (5' 6 ) 02/13/2024 8:07 AM VEHICLE AND EQUIPMENT CLEANER Body Mass Index 37.14 02/13/2024 8:07 AM VEHICLE AND EQUIPMENT CLEANER Plan of Treatment Health Maintenance Due Date Last Done Comments Albumin Creatinine Ratio, Urine 1945 Depression Screening 1945 Hepatitis C Screening 1945 Dilated Eye Exam 1946 Foot Exam 1946 DTaP/Tdap/Td Vaccine (1 - Tdap) 1957 Hepatitis B Screening 1964 Zoster Vaccine (1 of 2) 1996 Well Visit 65+ 07/03/2011 Hemoglobin A1C 10/01/2019 04/02/2019, 0108/2018, 05/04/2017 Fall Risk Assessment 10/17/2023 10/16/2022 Lipid Panel 04/23/2024 04/23/2023, 03/29, 05/16/2019, Additional history exists eGFR 06/22/2024 06/23/2023, 03/28, 04/11/2022, Additional history exists Colon Cancer Screening-FIT Discontinued 03/02/2018 Colon Cancer Screening-FOBT Discontinued 03/02/2018 Colorectal Cancer Screening Discontinued Pneumococcal vaccine 65+ Completed 10/17/2022 Influenza Vaccine Completed 10/31/2023, , 11/26/2017, Additional history exists Colon Cancer Screening-CT Colonography Discontinued Colon Cancer Screening-Colonoscopy Discontinued Colon Cancer Screening-DNA Stool Discontinued Colon Cancer Screening-Sigmoidoscopy Discontinued Medical Devices Implanted Type Area Outpatient Surgery Rn Device Identifier Shelf Expiration Date Model / Serial / Lot Other - See Comments Other - see comments Bilateral : Knee Screw Screw Right: First Toe Procedures Procedure Name Priority Date/Time Associated Diagnosis Comments IGE Routine 03/30/2024 8:49 AM VEHICLE AND EQUIPMENT CLEANER Asthma, unspecified asthma severity, unspecified whether complicated, unspecified whether persistent PRO B-TYPE NATRIURETIC PEPTIDE Routine 03/30/2024 8:49 AM VEHICLE AND EQUIPMENT CLEANER Shortness of breath CT CHEST HIGH RESOLUTION WO CONTRAST Schedule Routine, Read Routine (OP Routine) 03/30/2024 8:30 AM VEHICLE AND EQUIPMENT CLEANER Restrictive lung disease Abnormal PFT EGFR STAT 06/23/2023 9:48 AM CDT TNI WITH LIPID PANEL Routine 05/16/2019 10:26 PM CDT HEMOGLOBIN A1C Routine 04/02/2019 2:25 PM VEHICLE AND EQUIPMENT CLEANER OCCULT BLOOD, FECAL (FIT) Routine 03/02/2018 12:30 PM VEHICLE AND EQUIPMENT CLEANER from Last 3 Months or Most Recently Relevant to Health Maintenance Results * Pro B-type natriuretic peptide (03/30/2024 8:49 AM VEHICLE AND EQUIPMENT CLEANER) NT-proBNP 272 <=450 pg/mL Comment: Interpretive Comments: A. Dyspnea in Acute Care Setting All Ages: < 300 pg/ml, acute heart failure unlikely. < 50 yrs: 300 - 450 pg/ml, further investigation warranted. > 450 pg/ml, acute heart failure likely. 50 - 74 yrs: 300 - 900 pg/ml, further investigation warranted. > 900 pg/ml, acute heart failure likely . > or = 75 yrs: 450 - 1800 pg/ml, further investigation warranted. > 1800 pg/ml, acute heart failure likely. B. Non-acute Setting < 75 yrs < 125 pg/ml, rules out heart failure. > or = 125 pg/ml, further investigation warranted. > or = 75 yrs < 450 pg/ml, rules out heart failure. > or = 450 pg/ml, further investigation warranted. - Knowledge of each individual patient's NT-proBNP range may be more useful than using similar cut-points for every patient. Please note that marked elevations in NT-proBNP levels may be observed in state other than Left Ventricular Congestive Failure, including: acute coronary syndromes, right heart strain/failure (including pulmonary embolism and cor pulmonale), critical illness, renal failure, as well as advanced age. - References: 1. Nevaeh WARNER et.al. Eur Heart J. 2006:27:330-337. 2. Amanda RW, Mima AM. J. AM Roderick Cardiol: Cardiovasc Imag. 2009;2: 216- 225. Interpretive Data Last Revised Date: 2017. Testing performed by: [facility], [address] [place] [address]., [id number] Blood 03/30/2024 8:49 AM VEHICLE AND EQUIPMENT CLEANER 03/30/2024 11:19 AM VEHICLE AND EQUIPMENT CLEANER us Mario Alberto Maddox MD LAB BLOOD ORDERABLES F inal Result [facility] [address] [facility] [place] [address] * IgE (03/30/2024 8:49 AM VEHICLE AND EQUIPMENT CLEANER) IgE 23 <=100 IUnits/mL Blood 03/30/2024 8:49 AM VEHICLE AND EQUIPMENT CLEANER 03/30/2024 12:29 PM VEHICLE AND EQUIPMENT CLEANER us Mario Alberto Maddox MD LAB BLOOD ORDERABLES F inal Result [facility] [address] [facility] [place] [address] * CT Chest High Resolution WO Contrast (03/30/2024 8:30 AM VEHICLE AND EQUIPMENT CLEANER) Anatomical Region Laterality Modality Chest N/A Computed Tomogra phy 03/30/2024 2:14 PM VEHICLE AND EQUIPMENT CLEANER Narrative 03/30/2024 2:23 PM VEHICLE AND EQUIPMENT CLEANER EXAM DESCRIPTION: CT CHEST HIGH RESOLUTION WO CONTRAST REASON FOR STUDY: Interstitial lung disease Chronic sob. Unable to lay prone. Best attempt at expiration x2. Abnormal PFT attached in PACS. TECHNIQUE: CT scan of the chest performed without intravenous contrast using helical scanning technique. Inspiratory and expiratory images were acquired. Reconstructed coronal and sagittal MPR images reviewed. All images stored on PACS. Automated exposure control was used as a dose optimization technique for this examination. COMPARISON: Prior PET-CT dated 01/16/2022 FINDINGS: LUNGS: There is no definite evidence of significant interlobular septal thickening, reticulations, traction bronchiectasis, or architectural distortion to suggest chronic interstitial lung disease. There is mild mosaic attenuation of the bilateral lungs, which raises the concern for mild air trapping/reactive small airways disease. There is no definite evidence of a pneumothorax. The central airways are grossly patent. There is scattered subsegmental atelectasis and scarring, which is most significant in the lung bases. There is no definite evidence of a focal consolidation or pleural effusion. There are scattered calcified granulomas noted. There are scattered pulmonary nodules noted, which are overall similar to prior CT dated 11/03/2018, and therefore likely benign, and no follow-up imaging is recommended per Fleischner criteria. For example, there is a stable 0.4 cm pulmonary nodule in the posterior central right upper lobe (axial image 20). There is a stable 0.5 cm pulmonary nodule in the posterior right upper lobe abutting the right major fissure (axial image 27). There is a stable subtle 0.6 cm pulmonary nodule in the central right upper lobe (axial image 28). There is a stable 0.4 cm pulmonary nodule in the right middle lobe near the right minor fissure (axial image 43). There is a stable subtle 0.4 cm subpleural pulmonary nodule in the medial left upper lobe (axial image 16). MEDIASTINUM/KEMAR: There is cardiomegaly. There is no definite evidence of pericardial effusion. There are atherosclerotic changes of the coronary vessels. There are mild atherosclerotic changes of the thoracic aorta. There is dilatation of main pulmonary artery measuring up to 4.5 cm, which is concerning for pulmonary arterial hypertension. There are borderline enlarged and prominent subcentimeter mediastinal lymph nodes noted with largest measuring 1.2 cm in the prevascular region, which are overall grossly unchanged since 04/16/2019, and therefore likely benign. There are extensive calcified mediastinal and bilateral hilar lymph nodes noted. CORONARY ARTERY CALCIFICATION: Present. CHEST WALL: No masses. No subcutaneous air. HARDWARE/LINES/TUBES: None. UPPER ABDOMEN: There is a small hiatal hernia. The bilateral adrenal glands are grossly stable and unremarkable. There is a 0.3 cm nonobstructing right renal calculus. MUSCULOSKELETAL: There is mild osteopenia. There is dextroscoliotic curvature of the spine with degenerative changes. OTHER: No other significant finding. IMPRESSION: Suboptimal exam secondary to motion artifact. No definite evidence of significant interlobular septal thickening, reticulations, traction bronchiectasis, or architectural distortion to suggest chronic interstitial lung disease. Scattered subsegmental atelectasis and scarring, which is most significant in the lung bases. No definite evidence of focal consolidation. Mild mosaic attenuation of the bilateral lungs, which raises the concern for mild air trapping/reactive small airways disease. Scattered pulmonary nodules measuring up to 0.6 cm, which are grossly unchanged since 11/03/2018, and therefore likely benign, and no follow-up imaging is recommended per Fleischner criteria. Additional findings as above. THIS IS AN ELECTRONICALLY VERIFIED FINAL REPORT 03/30/2024 2:23 PM - Electronically signed by Darleen Jeong D.O. PS: PS Report ID: [id number] Reading Location: [place] [address] Procedure Note Darleen Jeong DO - 03/30/2024 EXAM DESCRIPTION: CT CHEST HIGH RESOLUTION WO CONTRAST REASON FOR STUDY: Interstitial lung disease Chronic sob. Unable to lay prone. Best attempt at expiration x2. AbnormalPFT attached in PACS. TECHNIQUE: CT scan of the chest performed without intravenous contrastusing helical scanning technique. Inspiratory and expiratory images wereacquired. Reconstructed coronal and sagittal MPR images reviewed. All images storedon PACS. Automated exposure control was used as a dose optimization techniquefor this examination. COMPARISON: Prior PET-CT dated 01/16/2022 FINDINGS: LUNGS: There is no definite evidence of significantinterlobular septal thickening, reticulations, traction bronchiectasis, orarchitectural distortion to suggest chronic interstitial lung disease. There is mildmosaic attenuation of the bilateral lungs, which raises the concern for mild air trapping/reactive small airways disease. There is no definite evidence of a pneumothorax. The central airways are grossly patent. There is scattered subsegmental atelectasis and scarring, which is most significant in the lung bases. There is no definiteevidence of a focal consolidation or pleural effusion. There are scattered calcified granulomas noted. There are scattered pulmonary nodules noted, which are overall similar to prior CT dated 11/03/2018, and therefore likely benign, and no follow-up imaging is recommended per Fleischner criteria. For example, there is a stable 0.4 cm pulmonary nodule in the posterior central right upper lobe (axial image 20). There is a stable 0.5 cm pulmonary nodule in theposterior right upper lobe abutting the right major fissure (axial image 27). Thereis a stable subtle 0.6 cm pulmonary nodule in the central right upper lobe(axial image 28). There is a stable 0.4 cm pulmonary nodule in the right middlelobe near the right minor fissure (axial image 43). There is a stable subtle0.4 cm subpleural pulmonary nodule in the medial left upper lobe (axial image16). MEDIASTINUM/KEMAR: There is cardiomegaly. There is no definite evidenceof pericardial effusion. There are atherosclerotic changes of the coronary vessels. There are mild atherosclerotic changes of the thoracic aorta.There is dilatation of main pulmonary artery measuring up to 4.5 cm, which is concerning for pulmonary arterial hypertension. There are borderline enlarged and prominent subcentimeter mediastinallymph nodes noted with largest measuring 1.2 cm in the prevascular region, whichare overall grossly unchanged since 04/16/2019, and therefore likely benign. There are extensive calcified mediastinal and bilateral hilar lymph nodes noted. CORONARY ARTERY CALCIFICATION: Present. CHEST WALL: No masses. No subcutaneous air. HARDWARE/LINES/TUBES: None. UPPER ABDOMEN: There is a small hiatal hernia. The bilateral adrenalglands are grossly stable and unremarkable. There is a 0.3 cm nonobstructingright renal calculus. MUSCULOSKELETAL: There is mild osteopenia. There is dextroscoliotic curvature of the spine with degenerative changes. OTHER: No other significant finding. IMPRESSION: Suboptimal exam secondary to motion artifact. No definite evidence of significant interlobular septal thickening, reticulations, traction bronchiectasis, or architectural distortion tosuggest chronic interstitial lung disease. Scattered subsegmental atelectasis and scarring, which is mostsignificant in the lung bases. No definite evidence of focal consolidation. Mild mosaic attenuation of the bilateral lungs, which raises the concernfor mild air trapping/reactive small airways disease. Scattered pulmonary nodules measuring up to 0.6 cm, which are grossly unchanged since 11/03/2018, and therefore likely benign, and no follow-up imaging is recommended per Fleischner criteria. Additional findings as above. THIS IS AN ELECTRONICALLY VERIFIED FINAL REPORT 03/30/2024 2:23 PM - Electronically signed by Darleen Jeong D.O. PS: PS Report ID: [id number] Reading Location: [place] [address] Mario Alberto Maddox MD IMG CT PROCEDURES Shivani l Result * (ABNORMAL) eGFR (06/23/2023 9:48 AM CDT) eGFR 38(L) >=60 mL/min/1. 73 m2 Comment: Interpretive Data Reference Interval Normal >/= 90 mL/min/1.73m2 Mildly decreased* 60 - 89 mL/min/1.73m2 Mildly to moderately decreased 45 - 59 mL/min/1.73m2 Moderately to severely decreased 30 - 44 mL/min/1.73m2 Severely decreased 15 - 29 mL/min/1.73m2 Kidney Failure < 15 mL/min/1.73m2 *Relative to young adult level Estimated glomerular filtration rate is determined by the 2020 CKD-EPI equation recommended by the National Kidney Foundation (A Unifying Approach to GFR Estimation: Recommendations of the NKF-ASK Task Force on Reassessing the Inclusion of Race in Diagnosing Kidney Disease, JASN 2020). The CKD-EPI equation should not be used for patients with unstable renal function and has not been validated in children and those over 70. Current interpretive data was last reviewed 2020. Blood 06/23/2023 9:48 AM CDT 06/23/2023 9:56 AM CDT us Todd Martinez MD LAB BLOOD ORDERABLES Final Re sult [facility] [address] [facility] Department of Laboratories [place], [place] [id number] * TNI with LIPID PANEL (05/16/2019 10:26 PM CDT) Troponin I <0.300 0.000 - 0.300 ng/mL [facility] Comment: Reference using REED Chemiluminescence Negative: Repeat in 4-6 hours as indicated. Triglycerides 54 0 - 149 mg/dL [facility] Comment: National Lipid Association/NCEP Guidelines: Normal < 150 mg/dL Borderline high 150-199 mg/dL High 200-499 mg/dL Very High >=500 mg/dL Cholesterol 106 0 - 199 mg/dL [facility] Comment: National Lipid Association/NCEP Guidelines: Desirable < 200 mg/dL Borderline high: 200-239 mg/dL High Risk: >=240 mg/dL HDL Cholesterol 40 mg/dL [facility]ZIO [facility] Comment: Reference Ranges: Males: >=40 mg/dL Females: >=50 mg/dL LDL Cholesterol, Calc 55 0 - 129 mg/dL [facility] Comment: National Lipid Association/NCEP Guidelines: Optimal < 100 mg/dL Near Optimal 100-129 mg/dL Borderline high 130-159 mg/dL High >=160 mg/dL Cholesterol/HDL Ratio 2.7 [facility] Comment: Optimal < 3.5:1 High > 5:1 05/16/2019 10:2 6 PM CDT 05/16/2019 10:50 PM CDT Narrative Resulting Agency Comment ER us Geni Faustin DO LAB BLOOD ORDERABLES Final Resu lt Performing Organization Address [facility] [employer] de Phone Number [address] [phone] * (ABNORMAL) Hemoglobin A1c (04/02/2019 2:25 PM VEHICLE AND EQUIPMENT CLEANER) Hemoglobin A1c % 6.6(H) 4.0 - 5.6 % [facility] Comment: ADA 2016 GUIDELINES: Initial Diagnostic Criteria HbA1c Result: Interpretation: <5.7% Normal 5.7-6.4% At risk for diabetes mellitus >=6.5% Consistent with diabetes mellitus Diabetes monitoring Target value (ADA Recommended) <7% 04/02/2019 2:25 PM VEHICLE AND EQUIPMENT CLEANER 04/02/2019 2:30 PM VEHICLE AND EQUIPMENT CLEANER Narrative Resulting Agency Comment CLI us Anirudh Weathers DO LAB BLOOD ORDERABLES Shivani l Result Performing Organization Address [facility] de Phone Number [address] [phone] * Occult blood, fecal non neoplasm screening (03/02/2018 12:30 PM VEHICLE AND EQUIPMENT CLEANER) Stool Occult Blood POSITIVE NEGATIVE 03/02/2018 12:52 PM VEHICLE AND EQUIPMENT CLEANER [facility] HISTORICAL RESULTS 03/02/2018 12:3 0 PM VEHICLE AND EQUIPMENT CLEANER 03/02/2018 12:49 PM VEHICLE AND EQUIPMENT CLEANER Narrative [facility] HISTORICAL RESULTS - 03/02/2018 12:52 PM VEHICLE AND EQUIPMENT CLEANER Collected By cris us Jelly Alarcon ELECTRIC WHEELCHAIR REPAIRER LAB BODY FLUIDS AND STOOLS O RDERABLES Final Result Performing Organization Address [facility] de Phone Number [facility] HISTORICAL RESULTS from Last 3 Months or Most Recently Relevant to Health Maintenance Insurance MEDICARE [employer] [place] MEDICARE [employer] [facility] Advance Directives For more information, please contact: [phone] * Full Code (Latest Code Status on File) Date Activated Date Inactivated Comments 01/18/2022 1:15 AM 01/19/2022 6:58 PM * Full Code Date Activated Date Inactivated Comments 01/17/2022 10:05 PM 01/18/2022 1:15 AM Care Teams Nuclear Instructor Relationship Specialty Start Date End Date Asad Engel MD PCP - General Internal Medicine 10/15/22 Kodak Albright MD Consulting Physician Pain Management 07/05/22 [place] [address] [place] [id number] Referring Physician Pediatrics 10/15/22
--- OUTSIDE RECORDS SUMMARY | 2024-04-16 08:03 | XMS_ITS | Referral Summary ---
Author Organization [facility] Address [address] [place] [phone] Care Team Providers Care Floodplain Manager Name Role Phone Kodak Albright MD Unavailable Asad Engel MD Primary Care Provider [phone] Dajuan Weathers MD Unavailable [phone] Encounters Date Type Department Care Team Description 03/30/2024 9:00 AM JAVA WEB DEVELOPER Lab [facility] Building [address] [place] [id number] Shortness of breath; Asthma, unspecified asthma severity, unspecified whether complicated, unspecified whether persistent 03/30/2024 7:56 AM JAVA WEB DEVELOPER - 03/30/2024 11:59 PM JAVA WEB DEVELOPER Hospital Encounter [facility] [address] [place] [id number] Restrictive lung disease; Abnormal PFT Discharge Disposition: Discharge to home or self care 03/26/2024 2:15 PM JAVA WEB DEVELOPER Therapy [facility] OP Physical Therapy [address] [place] [phone] Myra Burnham, PT Chronic bilateral low back pain, unspecified whether sciatica present (Primary Dx) 02/24/2024 1:30 PM JAVA WEB DEVELOPER Therapy [facility] OP Physical Therapy [address] [place] [phone] Hany Mcdonough, TRACK SUPERVISOR Chronic bilateral low back pain, unspecified whether sciatica present (Primary Dx) 02/17/2024 1:30 PM JAVA WEB DEVELOPER Therapy [facility] OP Physical Therapy [address] [place] [phone] Sabas Lacy, TRACK SUPERVISOR Chronic bilateral low back pain, unspecified whether sciatica present (Primary Dx) 02/13/2024 7:51 AM JAVA WEB DEVELOPER - 02/13/2024 11:59 PM JAVA WEB DEVELOPER Hospital Encounter [facility] Pain Mgmt [address] [place] [address] [address] [place] [address] Kodak Albright MD Bulge of lumbar disc without myelopathy (Primary Dx); Neural foraminal stenosis of lumbar spine; Radiculopathy, lumbar region Discharge Disposition: Discharge to home or self care 02/12/2024 3:00 PM JAVA WEB DEVELOPER Therapy [facility] OP Physical Therapy [address] [place] [phone] Sabas Lacy, TRACK SUPERVISOR Chronic bilateral low back pain, unspecified whether sciatica present (Primary Dx) 02/05/2024 Telephone [facility] [address] [place] [phone] Selene Lopez CMA 02/05/2024 2:15 PM JAVA WEB DEVELOPER Therapy [facility] OP Physical Therapy [address] [place] [phone] Shagufta Araya, TRACK SUPERVISOR Chronic bilateral low back pain, unspecified whether sciatica present (Primary Dx) 02/03/2024 1:30 PM JAVA WEB DEVELOPER Therapy [facility] OP Physical Therapy [address] [place] [phone] Alyssa Villarreal, PT Chronic bilateral low back pain, unspecified whether sciatica present (Primary Dx) 01/29/2024 1:30 PM JAVA WEB DEVELOPER Therapy [facility] OP Physical Therapy [address] [place] [phone] Sabas Lacy, TRACK SUPERVISOR Chronic bilateral low back pain, unspecified whether sciatica present (Primary Dx) 01/27/2024 2:15 PM JAVA WEB DEVELOPER Therapy [facility] OP Physical Therapy [address] [place] [phone] Daemma, Hany Carias, TRACK SUPERVISOR Chronic bilateral low back pain, unspecified whether sciatica present (Primary Dx) 01/20/2024 3:00 PM JAVA WEB DEVELOPER Therapy [facility] OP Physical Therapy [address] [place] [phone] Sabas Lacy, BENJAMÍN Chronic bilateral low back pain, unspecified whether sciatica present (Primary Dx) 01/15/2024 3:45 PM JAVA WEB DEVELOPER Therapy [facility] OP Physical Therapy [address] [place] [phone] Sabas Lacy, TRACK SUPERVISOR Chronic bilateral low back pain, unspecified whether sciatica present (Primary Dx) from Last 3 Months Allergies Active Allergy Reactions Criticality Noted Date [...] Intermittent dysphagia to solids -EGD as above. jail (current) use of anticoagulants 2022 Assessment & [...] syndrome 11/01/2021 Acute respiratory failure with hypoxia ([facility]/HCC) 11/01/2021 Asthma complicating , antepartum 2021 Benign prostatic hyperplasia 11/01/2021 Congestive heart failure wit h left ventricular diastolic dysfunction (CMS/HCC) 11/01/2021 DVT (deep venous thrombosis) ([facility]) Overview (11/01/2021): Last Assessment & [...] 2019 Assessment & Plan (01/24/2020 5:03 PM JAVA WEB DEVELOPER): Differential diagnosis for persistent pain would include [...] 02/26 Assessment & Plan (01/24/2020 5:02 PM JAVA WEB DEVELOPER): We discussed the adverse effects of extra [...] arthroplasty Assessment & Plan (03/23/2019 4:16 PM JAVA WEB DEVELOPER): We discussed the adverse effects of weight [...] consult Assessment & Plan (03/23/2019 4:15 PM JAVA WEB DEVELOPER): Currently being treated by pain management Assessment & Plan (02/12/2019 2:51 PM JAVA WEB DEVELOPER): After having a steroid injection to lumbar [...] 019 Assessment & Plan (02/12/2019 2:52 PM JAVA WEB DEVELOPER): Previous aspiration suggested that there might be [...] 08/14/2017 Assessment & Plan (02/12/2019 2:52 PM JAVA WEB DEVELOPER): May also be contributing to some of his lower extremity pain Assessment & Plan (12/01/2018 1:19 PM CDT): Certainly some of the pain could be due to diabetic neuropathy. Consider EMG NCV in the future if bone scan were to come back without loosening. Primary osteoarthritis of right hip 08/14/2017 Type 2 diabetes mellitus wit h diabetic nephropathy ([facility]) 08/14/2017 Assessment & Plan (01/24/2020 5:03 PM JAVA WEB DEVELOPER): Possibility of diabetic neuropathy. Consider EMG NCV in the future. Assessment & Plan (08/02/2019 4:59 PM CDT): Possibility of diabetic neuropathy consider EMG NCV in the future. Increased risk for infection, aspirate the knee to make sure there is no infection Assessment & Plan (05/14/2019 10:55 AM CDT): Increases the risk for postoperative complication Assessment & Plan (03/23/2019 4:15 PM JAVA WEB DEVELOPER): Increases the risk for postoperative complication Assessment & Plan (02/12/2019 2:51 PM JAVA WEB DEVELOPER): Increases risk for postoperative complication Post-phlebitic syndrome [...] head of the bed, and weight loss Social History Tobacco Use Types Packs/Day Years [...] on file Legal Sex Male 7:27 PM JAVA WEB DEVELOPER Gender Identity Not on file Sexual Orientation Not on file Occupation Industry Job Start Date Job End Date retired Not on file Not on file Not on file Last Filed Vital Signs Vital Sign Reading Time Taken Comments Blood Pressure 129/55 02/13/2024 8:07 AM JAVA WEB DEVELOPER Pulse 86 02/13/2024 8:07 AM JAVA WEB DEVELOPER Temperature 36.9 C (98.4 F) 02/13/2024 8:07 AM JAVA WEB DEVELOPER Respiratory Rate 18 02/13/2024 8:07 AM JAVA WEB DEVELOPER Oxygen Saturation 94% 02/13/2024 8:07 AM JAVA WEB DEVELOPER Inhaled Oxygen Concentration - - Weight 104.4 kg (230 lb 1.6 oz) 02/13/2024 8:07 AM JAVA WEB DEVELOPER Height 167.6 cm (5' 6 ) 02/13/2024 8:07 AM JAVA WEB DEVELOPER Body Mass Index 37.14 02/13/2024 8:07 AM JAVA WEB DEVELOPER Plan of Treatment Not on file Medical Devices Implanted Type Area Data Deliverables Manager Device Identifier Shelf Expiration Date Model / Serial / Lot Other - See Comments Other - see comments Bilateral : Knee Screw Screw Right: First Toe Procedures Procedure Name Priority Date/Time Associated Diagnosis Comments IGE Routine 03/30/2024 8:49 AM JAVA WEB DEVELOPER Asthma, unspecified asthma severity, unspecified whether complicated, unspecified whether persistent PRO B-TYPE NATRIURETIC PEPTIDE Routine 03/30/2024 8:49 AM JAVA WEB DEVELOPER Shortness of breath CT CHEST HIGH RESOLUTION WO CONTRAST Schedule Routine, Read Routine (OP Routine) 03/30/2024 8:30 AM JAVA WEB DEVELOPER Restrictive lung disease Abnormal PFT EGFR STAT 06/23/2023 9:48 AM CDT TNI WITH LIPID PANEL Routine 05/16/2019 10:26 PM CDT HEMOGLOBIN A1C Routine 04/02/2019 2:25 PM JAVA WEB DEVELOPER OCCULT BLOOD, FECAL (FIT) Routine 03/02/2018 12:30 PM JAVA WEB DEVELOPER from Last 3 Months or Most Recently Relevant to Health Maintenance Results * Pro B-type natriuretic peptide (03/30/2024 8:49 AM JAVA WEB DEVELOPER) NT-proBNP 272 <=450 pg/mL Comment: Interpretive Comments: [...] Heart J. 2006:27:330-337. 2. Amanda RW, Mima PHILLIPS. J. AM Roderick Cardiol: Cardiovasc Imag. 2009;2: 216- 225. Interpretive Data Last Revised Date: 2017. Testing performed by: [facility], [address] [place] [address], [place]., [address] Blood 03/30/2024 8:49 AM JAVA WEB DEVELOPER 03/30/2024 11:19 AM JAVA WEB DEVELOPER Mario Alberto Maddox MD LAB BLOOD ORDERABLES F inal Result [facility] [address] [facility] [place] [address] * IgE (03/30/2024 8:49 AM JAVA WEB DEVELOPER) IgE 23 <=100 IUnits/mL Blood 03/30/2024 8:49 AM JAVA WEB DEVELOPER 03/30/2024 12:29 PM JAVA WEB DEVELOPER Mario Alberto Maddox MD LAB BLOOD ORDERABLES F inal Result [facility] [place] [address] * CT Chest High Resolution WO Contrast (03/30/2024 8:30 AM JAVA WEB DEVELOPER) Anatomical Region Laterality Modality Chest N/A Computed Tomogra phy 03/30/2024 2:14 PM JAVA WEB DEVELOPER Narrative 03/30/2024 2:23 PM JAVA WEB DEVELOPER EXAM DESCRIPTION: CT CHEST HIGH RESOLUTION WO [...] Darleen Jeong D.O. PS: PS Report ID: [id number] Reading Location: [id number] Procedure Note Megan Jeongmara Frank, DO - 03/30/2024 EXAM DESCRIPTION: CT CHEST [...] Darleen Jeong D.O. PS: PS Report ID: [id number] Reading Location: [place] [address] Mario Alberto Maddox MD IMG CT PROCEDURES [...] MD LAB BLOOD ORDERABLES Final Re s[facility] [address] [facility] [place] [address] * TNI with LIPID PANEL (05/16/2019 10:26 PM CDT) Troponin I <0.300 0.000 - 0.300 ng/mL [facility] Comment: Reference using REED Chemiluminescence Negative: Repeat in 4-6 hours as indicated. Triglycerides 54 0 - 149 mg/dL [facility] Comment: National Lipid Association/NCEP Guidelines: Normal < 150 mg/dL Borderline high 150-199 mg/dL High 200-499 mg/dL Very High >=500 mg/dL Cholesterol 106 0 - 199 mg/dL [facility] Comment: National Lipid Association/NCEP Guidelines: Desirable < 200 mg/dL Borderline high: 200-239 mg/dL High Risk: >=240 mg/dL HDL Cholesterol 40 mg/dL [facility] Comment: Reference Ranges: Males: >=40 mg/dL Females: >=50 mg/dL LDL Cholesterol, Calc 55 0 - 129 mg/dL [facility] Comment: National Lipid Association/NCEP Guidelines: Optimal < 100 mg/dL Near Optimal 100-129 mg/dL Borderline high 130-159 mg/dL High >=160 mg/dL Cholesterol/HDL Ratio 2.7 [facility] Comment: Optimal < 3.5:1 High > 5:1 05/16/2019 10:2 6 PM CDT 05/16/2019 10:50 PM CDT Narrative Resulting Agency Comment ER Geni Faustin DO LAB BLOOD ORDERABLES Final Resu lt Performing Organization Address [facility] Co de Phone Number [address] [phone] * (ABNORMAL) Hemoglobin A1c (04/02/2019 2:25 PM JAVA WEB DEVELOPER) Hemoglobin A1c % 6.6(H) 4.0 - 5.6 % [facility] Comment: ADA 2016 GUIDELINES: Initial Diagnostic Criteria HbA1c Result: Interpretation: <5.7% Normal 5.7-6.4% At risk for diabetes mellitus >=6.5% Consistent with diabetes mellitus Diabetes monitoring Target value (ADA Recommended) <7% 04/02/2019 2:25 PM JAVA WEB DEVELOPER 04/02/2019 2:30 PM JAVA WEB DEVELOPER Narrative Resulting Agency Comment CLI Anirudh Weathers DO LAB BLOOD ORDERABLES Shivani l Result Performing Organization Address [facility] Co de Phone Number [address] [phone] * Occult blood, fecal non neoplasm screening (03/02/2018 12:30 PM JAVA WEB DEVELOPER) Stool Occult Blood POSITIVE NEGATIVE 03/02/2018 12:52 PM JAVA WEB DEVELOPER [facility] HISTORICAL RESULTS 03/02/2018 12:3 0 PM JAVA WEB DEVELOPER 03/02/2018 12:49 PM JAVA WEB DEVELOPER Narrative [facility] HISTORICAL RESULTS - 03/02/2018 12:52 PM JAVA WEB DEVELOPER Collected By cris us Jelly Alarcon NP LAB BODY FLUIDS AND STOOLS O SHALONDA Final Result [facility] HISTORICAL RESULTS from Last 3 Months or Most Recently Relevant to Health Maintenance Insurance MEDICARE COUNT INCLUDES THE [facility] MEDICARE Div[employer] ACCESS OOS Advance Directives For more information, please contact: [phone] * Full Code (Latest Code Status on File) Date Activated Date Inactivated Comments 01/18/2022 1:15 AM 01/19/2022 6:58 PM * Full Code Date Activated Date Inactivated Comments 01/17/2022 10:05 PM 01/18/2022 1:15 AM Care Teams Floodplain Manager Relationship Specialty Start Date End Date Asad Engel MD PCP - General Internal Medicine 10/15/22 Kodak Albright MD Consulting Physician Pain Management 07/05/22 [place] [address] [place] [id number] Referring Physician Pediatrics 10/15/22
--- OUTSIDE RECORDS SUMMARY | 2024-04-16 08:04 | XMS_ITS | Clinical Summary ---
Author Organization [facility] Address [address] [place] [address] Care Team Providers Care Can Handler Name Role Phone Asad Engel MD Primary Care Provider [phone] Allergies Active Allergy Reactions Criticality Noted Date Comments Albumin (Human) Rash Low 04/24/2021 ALBUMIN PRODUCTS IN GENERAL Diclofenac Unknown 06/23/2018 Iodine Unknown 06/23/2018 Levofloxacin Other (see comment) 02/23/2021 Nsaids Other (see comment) Low 04/24/2021 Patient states cant take due to other medication Patient states cant take due to other medication Medications lisinopril 5 MG tablet Take 1 tablet (5 mg total) by mouth daily. Active tamsulosin 0.4 MG Cap Take 1 capsule (0.4 mg total) by mouth daily. Active albuterol sulfate HFA 108 (90 Base) MCG/ACT inhaler Inhale 2 puffs into the lungs every 6 (six) hours as needed for Wheezing. Active latanoprost 0.005 % ophthalmic solution 1 drop nightly at bedtime. Active triamcinolone acetonide 55 MCG/ACT nasal inhaler take 2 sprays intranasally in each nostril once daily 1 Active Simethicone (PHAZYME MAXIMUM STRENGTH) 250 MG Cap as needed. 1 Active hydrocortisone 2.5 % cream Apply topically every 12 (twelve) hours. 1 Active metoprolol succinate ER (TOPROL-XL) 50 MG 24 hr tablet Take 1 tablet (50 mg total) by mouth daily. 2 Active rivaroxaban (XARELTO) 20 MG Tab tablet Take 1 tablet (20 mg total) by mouth every evening. 2 Active albuterol (2.5 MG/3ML) 0.083% nebulizer solution Take 3 mLs (2.5 mg total) by nebulization every 6 (six) hours as needed for Wheezing. Active glimepiride 4 MG tablet Take 1.5 tablets (6 mg total) by mouth every morning before breakfast. Active metFORMIN ER, OSM, 500 MG 24 hr tablet Take 2 tablets (1,000 mg total) by mouth every evening. Active SITagliptin 100 MG tablet Take 1 tablet (100 mg total) by mouth daily. Active Fluticasone-Ume clidin-Vilant (TRELEGY ELLIPTA) 200-62.5-25 MCG/ACT AEROSOL POWDER, BREATH ACTIVATED Inhale 1 puff into the lungs daily. Active HYDROcodone-vadim taminophen (NORCO) 5-325 MG tablet Take by mouth every 6 (six) hours. 2 Active levocetirizine 5 MG Tab Take by mouth daily. 2 Active metFORMIN ER (GLUCOPHAGE-XR) 500 MG 24 hr tablet Take by mouth daily. 2 Active oxybutynin XL (DITROPAN-XL) 5 MG 24 hr tablet Take 1 tablet (5 mg total) by mouth daily. 2 Active pantoprazole EC (PROTONIX) 40 MG tablet Take 1 tablet (40 mg total) by mouth 2 (two) times daily. 3 Active brimonidine (ALPHAGAN) 0.15 % ophthalmic solution Apply 1 drop to eye every 12 (twelve) hours. 3 Active mirabegron ER (MYRBETRIQ) 25 MG 24 hr tablet Take 1 tablet (25 mg total) by mouth daily. Active traMADol (ULTRAM) 50 MG tablet every 6 (six) hours as needed. 3 Active famotidine (PEPCID) 20 MG tablet Take 1 tablet (20 mg total) by mouth 2 (two) times daily. Active fluticasone furoate-vilante rol (BREO ELLIPTA) 100-25 MCG/ACT inhaler Inhale 1 puff into the lungs daily. 3 Active omeprazole (PRILOSEC) 20 MG capsule Take 1 capsule (20 mg total) by mouth daily. 3 Active amantadine (SYMMETREL) 100 MG tabletIndicatio ns:Abulia Take 0.5 tablets (50 mg total) by mouth 2 (two) times daily. 90 tablet 3 4 07/18/19 25 Active atorvastatin (LIPITOR) 40 MG tablet Take 1 tablet (40 mg total) by mouth daily. 4 Active furosemide (LASIX) 40 MG tablet TAKE 1 TABLET BY MOUTH DAILY 90 tablet 5 Active Active Problems Problem Noted Date Diagnosed Date Bilateral lower extremity edema 03/21/2023 Assessment & Plan (03/21/2023 5:22 PM LIGHT TRUCK DRIVER): Recommend stopping hydrochlorothiazide and increasing furosemide to 40 mg daily. Coronavirus infection 11/04/2022 Carcinoma of prostate ([facility]) 09/14/19 Cerebral atrophy 09/13/2022 Complex dyslipidemia 09/13/2022 Coronary artery disease due to type 2 diabetes mellitus ([facility]) 09/13/2022 Assessment & Plan (03/21/2023 5:22 PM LIGHT TRUCK DRIVER): He has is listed as a diagnosis. However, he does not have a CT scan with coronary artery calcification. Continue statin therapy. Abdominal pain 05/22/2022 Overview (03/15/2023): Last Assessment & Plan: Was in ER for epigastric pain and [...] understands and consents to having procedure done. Dysphagia 05/22/2022 Overview (03/15/2023): Last Assessment & Plan: Intermittent dysphagia to solids -EGD as above. Helicobacter pylori infection 05/22/2022 Overview (03/15/2023): Last Assessment & Plan: Noted on EGD by Dr. Molina 2019, treated. -will check for eradication on EGD [employer] or [employer] (current) use of anticoagulants 2022 Overview (03/15/2023): Last Assessment & Plan: On Xarelto for DVTs -will request clearance from PCP to hold Xarelto 2 days prior to EGD -Discussed risks of holding anticoagulation including risks of blood clot, heart attack, stroke, and . Abulia 04/24/2022 MAJO (acute kidney injury) 01/17/2022 Abnormal resting electrocardiogram findings 08/2021 Acute renal failure syndrome 11/01/2021 Acute respiratory failure with hypoxia ([facility] HHS/HCC) 11/01/2021 Asthma complicating , antepartum (HHS/H CC) 11/01/2021 Benign prostatic hyperplasia 11/01/2021 Chronic bilateral low back pain without sciatica 11/01/2021 Congestive heart failure wit h left ventricular diastolic dysfunction ([facility] HHS/HCC) 11/01/2021 Exercise-induced tachycardia 11/01/2021 Gastroesophageal reflux disease with esophagitis 11/01/2021 Gastrointestinal hemorrhage 11/01/2021 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 He has no evidence of atrial fibrillation on a 30-day monitor. Since he requires empiric anticoagulation, I do not think there is benefit to a loop recorder. Assessment & Plan (03/22/2022 12:31 PM LIGHT TRUCK DRIVER): Unknown mechanism for his CVA. He has no evidence of atrial fibrillation on a 30-day monitor. Since he requires empiric anticoagulation, I do not think there is benefit to a loop recorder. Assessment & Plan (09/06/2021 10:59 AM CDT): MRI 12/2020 revealing -Subacute infarct isocentric to the left frontal lobe Echo with normal LVSF and no LV thrombus, bubble study neg No history of atrial fibrillation although this is less likely the cause he has been on AC for years now EM ordered to be completed Carotid dop reveal no stenosis RCA and 1-49% LCA Medical management continued Assessment & Plan (07/04/2021 9:23 AM CDT): He had a cerebrovascular accident of unknown etiology. I recommended that he undergo 30-day event monitor to rule out atrial fibrillation. He has no evidence of PFO on his transthoracic echocardiogram. We could consider DORA if the event monitor does not show atrial fibrillation. Continue metoprolol and Xarelto. Essential (primary) hypertension 07/04/2021 Assessment & Plan (03/21/2023 5:22 PM LIGHT TRUCK DRIVER): Home blood pressure is well controlled. Continue antihypertensive therapy. Assessment & Plan (03/22/2022 12:31 PM LIGHT TRUCK DRIVER): Home blood pressure is well controlled. Continue antihypertensive therapy. Assessment & Plan (08/24/2021 9:19 AM CDT): Blood pressure is well controlled with no changes in regimen at this time Encouraged to continue to monitor at home and log and call office with any concerns in future. Assessment & Plan (07/04/2021 9:25 AM CDT): His blood pressure is mildly elevated. I recommended home blood pressure monitoring. Continue metoprolol and lisinopril. Stage 3 chronic kidney disease ([facility]) 06/10/2019 Moderate persistent asthma, unspecified whether complicated ([facility]) 06/10/2019 S/P revision of total knee, left 05/14/2019 Overview (01/17/2024): April 17, 2019 Lumbar degenerative disc disease 12/01/2018 Overview (09/13/2022): Last Assessment & Plan: Patient gets relief with injections to the lumbar spine. Scheduled for another shot on Saturday. Recommend consultation with Dr. Ramos Type 2 diabetes mellitus wit h other specified complication ([facility]) 08/14/2017 Overview (05/25/2021): Last Assessment & Plan: Possibility of diabetic neuropathy. Consider EMG NCV in the future. Hyperlipidemia 04/11/2011 Assessment & Plan (03/22/2022 12:31 PM LIGHT TRUCK DRIVER): We do not have a recent lipid panel. He has a history of diabetes, which is a coronary artery disease risk equivalent and stroke. Continue atorvastatin. Goal LDL less than 70. Assessment & Plan (08/24/2021 9:20 AM CDT): Statin therapy is well tolerated without any reports of Statin-associated muscle symptoms ([facility]). Target goal of LDL < 70 Component 12/12/20 CHOLESTEROL 119 HDL 37 TRIGLYCERIDE 61 LDL (CALCULATED) 70 Assessment & Plan (07/04/2021 9:23 AM CDT): He has diabetes, which is a coronary artery disease risk equivalent. He also stroke. Continue atorvastatin. Gastroesophageal reflux disease 09/19/2010 DVT (deep venous thrombosis) ([facility]) Assessment & Plan (03/21/2023 5:23 PM LIGHT TRUCK DRIVER): Continue rivaroxaban. Assessment & Plan (03/22/2022 12:31 PM LIGHT TRUCK DRIVER): Continue rivaroxaban. Assessment & Plan (09/06/2021 10:53 AM CDT): Remote hx of DVT Has been on xarelto for a few years now Encounters Date Type Department Care Team Description 01/17/2024 9:00 AM LIGHT TRUCK DRIVER Office Visit [facility] - [address], [address] [place] [phone] Siomara Dorado MD Follow Up 01/17/2024 Travel from Last 3 Months Family History Medical History Relation Comments Diabetes Father Diabetes Mother Stroke Mother Pancreatic Cancer Sister 2 Relation Status Comments Brother 1 Alive Brother 2 Alive Father (Age 83) Maternal Grandfather Maternal Grandmother Mother (Age 80) Paternal Grandfather Paternal Grandmother Sister 1 Alive Sister 2 Alive Social History Tobacco Use Types Packs/Day Years Used Date Smoking Tobacco: Never Passive Smoke Exposure: Never Smokeless Tobacco: Never Tobacco Cessation:Counseling Given: Yes Alcohol Use Standard Drinks/Week Comments No 0 (1 standard drink = 0.6 oz pur e alcohol) AUDIT-C Answer Date Recorded Frequency of Alcohol Consumption Never 06/23/2018 Average Number of Drinks Not on file 019 Frequency of Binge Drinking Not on file 05/27 PHQ-2 Answer Date Recorded Patient Health Questionnaire-2 Score 0 01/17/2024 Sex and Gender Information Value Date Recorded Sex Assigned at Not on file Legal Sex Male 4:11 PM LIGHT TRUCK DRIVER Gender Identity Not on file Sexual Orientation Not on file Last Filed Vital Signs Vital Sign Reading Time Taken Comments Blood Pressure 120/62 01/17/2024 8:49 AM LIGHT TRUCK DRIVER Pulse 86 01/17/2024 8:49 AM LIGHT TRUCK DRIVER Temperature 36.2 C (97.2 F) 01/17/2024 8:49 AM LIGHT TRUCK DRIVER Respiratory Rate 16 01/17/2024 8:49 AM LIGHT TRUCK DRIVER Oxygen Saturation 97% 01/17/2024 8:49 AM LIGHT TRUCK DRIVER Inhaled Oxygen Concentration - - Weight 102.1 kg (225 lb) 01/17/2024 8:49 AM LIGHT TRUCK DRIVER Height 167.6 cm (5' 6 ) 01/17/2024 8:49 AM LIGHT TRUCK DRIVER Body Mass Index 36.32 01/17/2024 8:49 AM LIGHT TRUCK DRIVER Plan of Treatment Upcoming Encounters Date Type Department Care Team (Late st Contact Info) Description 05/11/2024 1:45 PM CDT Office Visit [facility], [address] [place] [address] Dawood Alberto MD Three [facility]. [address] [place] [address] 01/18/2025 8:00 AM LIGHT TRUCK DRIVER Office Visit [facility] - [facility] [address] [facility], [address] [place] [phone] Siomara Dorado MD [address] [place] [address] Health Maintenance Due Date Last Done Comments Kidney Health Evaluation 1945 Diabetes: Retinopathy Eye Exam 1964 Hepatitis C 1964 DTaP, Tdap and Td Vaccines (1 - Tdap) 1965 Zoster Vaccines (1 of 2) 1996 Annual Medicare Wellness Visit 07/03/2011 RSV Immunization or 60+ Years (1 - 1-dose 75+ series) 2021 ASCVD LDL 04/18/2023 04/18/2022, 12/12/2020 Hemoglobin A1C 04/19/2023 10/17/2022, 03/29, 04/18/2022, Additional history exists COVID-19 Vaccine ( season) 2023 12/04/2020, 05/10/2020, 04/19/2020 PHQ-2 (Phys[facility] [place]) 02/26/2024 01/17/2024 Lipid Panel 04/23/2024 04/23/2023, 03/29, 12/12/2020 PHQ-2 (Physician [place]) 01/16/2025 01/17/2024 Colorectal Cancer Screening Colonoscopy (10 Years) Discontinued 06/24/2018 Pneumococcal Vaccine: 65+ Years Completed 10/17/2022 Influenza Adult Completed 10/31/2023, 11/25, 12/15/2019, Additional history exists Meningococcal B Vaccine Aged Out No l onger eligible based on patient's age to complete this topic Meningococcal Vaccine Aged Out No jerica ashlyn eligible based on patient's age to complete this topic RSV Immunizations Under 20 Months Aged Out No longer eligible based on patient's age to complete this topic Procedures Procedure Name Priority Date/Time Associated Diagnosis Comments HEMOGLOBIN, GLYCOSYLATED Routine 10/17/2022 LIPID PANEL Routine 04/18/2022 COLONOSCOPY Routine 06/24/2018 6:10 AM CDT from Last 3 Months or Most Recently Relevant to Health Maintenance Results * HEMOGLOBIN, GLYCOSYLATED (10/17/2022) HGB A1C 7.0 % Narrative Resulting Agency Comment us Default History Genericprovider LABORATORY Edited Result - Final * LIPID PANEL (04/18/2022) CHOLESTEROL 109 TRIGLYCERIDES 76 HDL 37 LDL (CALCULATED) 57 us Default History Genericprovider LABORATORY Edited Result - Final from Last 3 Months or Most Recently Relevant to Health Maintenance Insurance MEDICARE [facility] Care Teams Can Handler Relationship Specialty Start Date End Date Asad Engel MD [address] [place] [phone] PCP - General INTERNAL MEDICINE 06/19/18
--- OUTSIDE RECORDS SUMMARY | 2024-04-16 08:04 | XMS_ITS | Encounter Summary ---
Author Organization [facility] Address [address] [place] [address] Care Team Providers Care Taper Machine Name Role Phone Asad Engel MD Primary Care Provider [phone] Encounter Details Date Type Department Care Team (Late st Contact Info) Description 08/04/2021 Therapy Plan [facility] [place] [address] Asad Hernandez Social History Tobacco Use Types Packs/Day Years Used Date Smoking Tobacco: Never Smokeless Tobacco: Never Alcohol Use Standard Drinks/Week Comments No 0 (1 standard drink = 0.6 oz pur e alcohol) AUDIT-C Answer Date Recorded Frequency of Alcohol Consumption Never 06/23/2018 Average Number of Drinks Not on file 019 Frequency of Binge Drinking Not on file 05/27 PHQ-2 Answer Date Recorded PHQ-2 Score - If the patient scores above 3, please move on to questions 3-9 0 04/24/2021 Sex and Gender Information Value Date Recorded Sex Assigned at Not on file Legal Sex Male 4:11 PM JANITORIAL TECH Gender Identity Not on file Sexual Orientation Not on file documented as of this encounter Plan of Treatment Upcoming Encounters Date Type Department Care Team (Late st Contact Info) Description 05/11/2024 1:45 PM CDT Office Visit [facility], [address] [place], [place] [phone] Dawood Alberto MD Three [facility]. [address] [place], [place] [phone] 01/18/2025 8:00 AM JANITORIAL TECH Office Visit [facility] Multispec[facility] Care - [facility] [address] [facility], [address] [place] [address] Siomara Dorado MD [address] [place] [address] documented as of this encounter Visit Diagnoses Diagnosis Klebsiella infection- Primary Klebsiella pneumoniae documented in this encounter Additional Health Concerns Assessment Noted Time PHQ-9 Depression Total Score: 0 04/24/19 22 1:11 PM JANITORIAL TECH documented as of this encounter Care Teams Taper Machine Relationship Specialty Start Date End Date Asad Engel MD [address] [place] [address] PCP - General INTERNAL MEDICINE 06/19/18 documented as of this encounter
--- OUTSIDE RECORDS SUMMARY | 2024-04-16 08:04 | XMS_ITS | Encounter Summary ---
Author Organization [facility] Address [address] [place] [address] Care Team Providers Care Radiotelegrapher Name Role Phone Asad Engel MD Primary Care Provider [phone] Encounter Details Date Type Department Care Team (Late Contact Info) Description 08/22/2021 Abstract [facility] [address] [place] [address] Mark Mackay MA Social History Tobacco Use Types Packs/Day Years [...] on file Legal Sex Male 4:11 PM DIETETICS TEACHER Gender Identity Not on file Sexual Orientation Not on file COVID-19 Exposure Response Date Recorded In the last 10 days, have yo u been in contact with someone who was confirmed or suspected to have Coronavirus/COVID-19? No / Unsure 08/24/2021 10:51 AM CDT documented as of this encounter Plan of Treatment Upcoming Encounters Date Type Department Care Team (Late Contact Info) Description 05/11/2024 1:45 PM CDT [facility] [address] [place] [address] Dawood Alberto MD Three [facility]. [address] [place] [address] 01/18/2025 8:00 AM DIETETICS TEACHER Office Visit [facility] Mult[facility]pec[facility]ty Care - [facility] [address] [facility] [place] [address] Siomara Dorado MD [address] [place] [address] documented as of this encounter Procedures Procedure Name Priority Date/Time Associated Diagnosis Comments HEMOGLOBIN, GLYCOSYLATED Routine 10/17/2022 COMPREHENSIVE METABOLIC PANEL Routine 10/17/2022 HEMOGLOBIN, GLYCOSYLATED Routine 04/18/2022 COMPREHENSIVE METABOLIC PANEL Routine 04/18/2022 LIPID PANEL Routine 04/18/2022 CBC, MANUAL DIFF Routine 04/18/2022 BASIC METABOLIC PANEL Routine 06/12/2021 HEMOGLOBIN, GLYCOSYLATED Routine 06/12/2021 CBC (OUTSIDE LAB) Routine 12/12/2020 PROSTATE SPECIFIC ANTIGEN,TOTAL Routine 12/12/2020 COMPREHENSIVE METABOLIC PANEL Routine 12/12/2020 LIPID PANEL Routine 12/12/2020 HEMOGLOBIN, GLYCOSYLATED Routine 12/12/2020 documented in this encounter Results * (ABNORMAL) COMPREHENSIVE METABOLIC PANEL (10/17/2022) SODIUM S/P/B 140 GLUCOSE 229 mg/dL BUN 23 CREATININE S/P/B 1.62(A) 0.7 - 1.3 CALCIUM S/P/B 9.2 POTASSIUM S/P/B 4.2 CHLORIDE S/P/B 107 GFR ESTIMATE 44 Narrative Resulting Agency Comment [facility] History Genericprovider LABORATORY Edited Result - Final * HEMOGLOBIN, GLYCOSYLATED (10/17/2022) Pathologist [facility] HGB A1C 7.0 % Narrative Resulting Agency Comment [facility] Genericprovider LABORATORY Edited Result - Final * (ABNORMAL) COMPREHENSIVE METABOLIC PANEL (04/18/2022) Pathologist [facility] SODIUM S/P/B 140 GLUCOSE 87 mg/dL AST 28 BUN 16 CREATININE S/P/B 1.64(A) 0.7 - 1.3 CALCIUM S/P/B 9.4 POTASSIUM S/P/B 4.1 CHLORIDE S/P/B 110 ALT 25 GFR ESTIMATE 43 Result [facility] Genericprovider LABORATORY Edited Result - Final * LIPID PANEL (04/18/2022) Pathologist [facility] CHOLESTEROL 109 TRIGLYCERIDES 76 HDL 37 LDL (CALCULATED) 57 Result [facility] Genericprovider LABORATORY Edited Result - Final * CBC, MANUAL DIFF (04/18/2022) [facility] WBC 5.28 HGB 13.7 HCT 43.3 PLATELET COUNT 181 Result [facility] Genericprovider LABORATORY Edited Result - Final * HEMOGLOBIN, GLYCOSYLATED (04/18/2022) Pathologist [facility] HGB A1C 7.1 % Result [facility] Genericprovider LABORATORY Edited Result - Final * (ABNORMAL) BASIC METABOLIC PANEL (06/12/2021) Pathologist [facility] SODIUM S/P/B 142 POTASSIUM S/P/B 4.4 CO2 29 CHLORIDE S/P/B 107 GLUCOSE 119 mg/dL CALCIUM S/P/B 9.1 BUN 19 CREATININE S/P/B 1.58(A) 0.7 - 1.3 EGFR AFR. AMER. 52 <=90 EGFR NON-AFR. AMER. 43 <=90 06/12/2021 us Doc [facility] LABORATORY Final Result * HEMOGLOBIN, GLYCOSYLATED (06/12/2021) Pathologist [facility] HGB A1C 7.4 % 06/12/2021 us Doc [facility] LABORATORY Final Result * PROSTATE SPECIFIC ANTIGEN,TOTAL (12/12/2020) Pathologist [facility] PSA 6.51 12/12/2020 us Doc [facility] LABORATORY Final Result * CBC (OUTSIDE LAB) (12/12/2020) Pathologist [facility] WBC 6.11 HGB 12.7 HCT 40.8 PLT 194 12/12/2020 us Doc [facility] Abstract LAB-OUTSIDE/ABSTRACTED Final Result * LIPID PANEL (12/12/2020) Pathologist [facility] CHOLESTEROL 119 HDL 37 TRIGLYCERIDES 61 LDL (CALCULATED) 70 12/12/2020 us Doc [facility] LABORATORY Final Result * (ABNORMAL) COMPREHENSIVE METABOLIC PANEL (12/12/2020) Pathologist [facility] SODIUM S/P/B 140 POTASSIUM S/P/B 4.3 CO2 25 CHLORIDE S/P/B 107 GLUCOSE 77 mg/dL CALCIUM S/P/B 9.8 BUN 19 CREATININE S/P/B 1.47(A) 0.7 - 1.3 EGFR NON-AFR. AMER. 47 <=90 ALKALINE PHOSPHATASE S/P/B 97 ALT 13 AST 24 BILIRUBIN TOTAL S/P/B 0.7 ALBUMIN S/P/B 4.0 3.5 - 5.0 TOTAL PROTEIN S/P/B 6.9 GLOBULIN 2.9 12/12/2020 us Doc [facility] LABORATORY Final Result * HEMOGLOBIN, GLYCOSYLATED (12/12/2020) HGB A1C 7.2 % 12/12/2020 us Doc [facility] LABORATORY Final Result documented in this encounter Visit Diagnoses Not on filedocumented in this encounter Additional Health Concerns Assessment Noted Time PHQ-9 Depression Total Score: 0 04/24/19 22 1:11 PM DIETETICS TEACHER documented as of this encounter Care Teams Radiotelegrapher Relationship Specialty Start Date End Date Asad Engel MD [address] [place] [address] PCP - General INTERNAL MEDICINE 06/19/18 documented as of this encounter
--- OUTSIDE RECORDS SUMMARY | 2024-04-16 08:04 | XMS_ITS | Encounter Summary ---
Author Organization [facility] Address [address] [place] [address] Care Team Providers Care Emergency Management Consultant Name Role Phone Asad Engel MD Primary Care Provider [phone] Encounter Details Date Type Department Care Team (Late Contact Info) Description 08/03/2021 Therapy Plan [facility] [address] [place] [address] Pam Barbosa, ADDISON [address] [address] Social History Tobacco Use Types Packs/Day Years [...] on file Legal Sex Male 4:11 PM FINDING FASTENER Gender Identity Not on file Sexual Orientation Not on file documented as of this encounter Plan of Treatment Upcoming Encounters Date Type Department Care Team (Late Contact Info) Description 05/11/2024 1:45 PM CDT [facility] [address] [place] [address] Dawood Alberto MD Three [facility]. [address] [place] [address] 01/18/2025 8:00 AM FINDING FASTENER Office Visit [facility] Mult[facility]pecial[facility] Care - [facility] [address] [facility], [address] [place] [address] Siomara Dorado MD [address] [place] [address] documented as of this encounter Visit Diagnoses Not on filedocumented in this encounter Additional Health Concerns Assessment Noted Time PHQ-9 Depression Total Score: 0 04/24/19 22 1:11 PM FINDING FASTENER documented as of this encounter Care Teams Emergency Management Consultant Relationship Specialty Start Date End Date Asad Engel MD [address] [place] [phone] PCP - General INTERNAL MEDICINE 06/19/18 documented as of this encounter
--- OUTSIDE RECORDS SUMMARY | 2024-04-16 08:04 | XMS_ITS ---
Author Organization [facility] Address [facility] [place] [address] Care Team Providers Care Director Of Assisted Living Name Role Phone Asad Engel MD Primary Care Provider [phone] Active Problems Problem Noted Date Diagnosed Date Bilateral lower extremity edema 03/21/2023 Assessment & Plan (03/21/2023 5:22 PM FINAL INSPECTOR PAPER): Recommend stopping hydrochlorothiazide and increasing furosemide to 40 mg daily. Coronavirus infection 11/04/2022 Carcinoma of prostate ([facility]) 09/14/19 Cerebral atrophy 09/13/2022 Complex dyslipidemia 09/13/2022 Coronary artery disease due to type 2 diabetes mellitus ([facility]) 09/13/2022 Assessment & Plan (03/21/2023 5:22 PM FINAL INSPECTOR PAPER): He has is listed as a diagnosis. [...] treated. 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 anticoagulants 2022 Overview (03/15/2023): [...] syndrome 11/01/2021 Acute respiratory failure with hypoxia ([facility]) 11/01/2021 Asthma complicating , antepartum ([facility]/H [facility]) 11/01/2021 Benign prostatic hyperplasia 11/01/2021 Chronic bilateral low back pain without sciatica 11/01/2021 Congestive heart failure wit h left ventricular diastolic dysfunction ([facility]) 11/01/2021 Exercise-induced tachycardia 11/01/2021 Gastroesophageal reflux disease with esophagitis 11/01/2021 Gastrointestinal hemorrhage 11/01/2021 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 He has no evidence of atrial fibrillation on a 30-day monitor. Since he requires empiric anticoagulation, I do not think there is benefit to a loop recorder. Assessment & Plan (03/22/2022 12:31 PM FINAL INSPECTOR PAPER): Unknown mechanism for his CVA. He has [...] 07/04/2021 Assessment & Plan (03/21/2023 5:22 PM FINAL INSPECTOR PAPER): Home blood pressure is well controlled. Continue antihypertensive therapy. Assessment & Plan (03/22/2022 12:31 PM FINAL INSPECTOR PAPER): Home blood pressure is well controlled. Continue [...] and lisinopril. Stage 3 chronic kidney disease ([facility]) 06/10/2019 Moderate persistent asthma, unspecified whether complicated ([facility]) 06/10/2019 S/P revision of total knee, left 05/14/2019 Overview (01/17/2024): April 17, 2019 Lumbar degenerative disc disease 12/01/2018 Overview (09/13/2022): Last Assessment & Plan: Patient gets relief with injections to the lumbar spine. Scheduled for another shot on Saturday. Recommend consultation with Dr. Ramos Type 2 diabetes mellitus wit h other specified complication ([facility]) 08/14/2017 Overview (05/25/2021): Last Assessment & Plan: Possibility of diabetic neuropathy. Consider EMG NCV in the future. Hyperlipidemia 04/11/2011 Assessment & Plan (03/22/2022 12:31 PM FINAL INSPECTOR PAPER): We do not have a recent lipid [...] reflux disease 09/19/2010 DVT (deep venous thrombosis) ([facility]) Assessment & Plan (03/21/2023 5:23 PM FINAL INSPECTOR PAPER): Continue rivaroxaban. Assessment & Plan (03/22/2022 12:31 PM FINAL INSPECTOR PAPER): Continue rivaroxaban. Assessment & Plan (09/06/2021 10:53 AM CDT): Remote hx of DVT Has been on xarelto for a few years now Current Oncology Plans No current plan information found. Past Plans Radiation Treatments * No radiation treatments are documented for this patient in [facility]. Treatments may have been administered in another system.
== END 2024-04-16 07:59 | disposition home or self-care (01) ==
PROVIDERS: PCP Internal Medicine; Visit Provider Urology
DX: C61 Malignant neoplasm of prostate (principal); R60.9 Edema, unspecified; Z96.653 Presence of artificial knee joint, bilateral
CPT/HCPCS: 78306; A9503

== ENCOUNTER 2024-07-10 08:22 | Outpatient (CLI) | payer MEDICARE, BC, SELFPAY ==
--- NOTE | ~2024-07-10 | CT_ITS ---
CT of the Abdomen and Pelvis: Indication: Prostate cancer Technique: 2.5 mm axial scans were obtained through the abdomen and pelvis following intravenous adm inistration of 100 cc of Omnipaque 350. Dose reduction technique was used on this scan by utilizing a utomated exposure control and iterative reconstruction technique. The dose-length product (DLP) was 1 556.35 mGy-cm. COMPARISON: 07/04/2022 Findings: Scans through the lung bases demonstrated bibasilar atelectatic changes. Calcified mediast inal/hilar lymph nodes are present. The liver, spleen, gallbladder, adrenals and left kidney are within normal limits. 3 mm nonobstructin g right renal stone present. There is a 2.2 cm cystic lesion at the pancreatic tail. No evidence of a ortic aneurysm. There are shotty retroperitoneal lymph nodes, largest measuring 1.7 x 0.8 cm along th e left common iliac chain. There is an additional 1.7 x 1.0 cm node along the left external iliac yahaira in along the left pelvic sidewall region. Mildly prominent right external iliac chain lymph nodes are also present.. No bowel obstruction or bowel wall thickening. There is no evidence to suggest acute appendicitis. Images through the pelvis were performed. Prostate gland radiation seeds are present. Urinary bladder unremarkable. No ascites. Impression: Shotty/mildly prominent retroperitoneal and iliac chain lymph nodes, as detailed above. These could b e reactive, however metastatic lymph nodes are not completely excluded. Consider PMSA PET scan for fu rther evaluation as indicated. 2.2 cm cystic lesion of the tail the pancreas. 3 mm nonobstructing right renal stone. Reviewed, dictated and finalized at location . Impression: Shotty/mildly prominent retroperitoneal and iliac chain lymph nodes, as detaile d above. These could be reactive, however metastatic lymph nodes are not comple tely excluded. Consider PMSA PET scan for further evaluation as indicated. 2.2 cm cystic lesion of the tail the pancreas. 3 mm nonobstructing right renal stone.
--- OUTSIDE RECORDS SUMMARY | 2024-07-10 08:30 | XMS_ITS | Encounter Summary ---
Author Organization [facility] Care Team Providers Care Real Estate Agent Name Role Phone Asad Engel MD Primary Care Provider [phone] Anirudh Weathers DO Primary Care Provider [phone] Asad Engel MD Primary Care Provider [phone] Kodak Albright MD Unavailable Anirudh Weathers DO Primary Care Provider [phone] Asad Engel MD Primary Care Provider [phone] Dajuan Weathers MD Unavailable [phone] Encounter Details Date Type Department Care Team (Latest Contact Info) Description 04/15/2017 Orders Only [facility] CLINCONV ProviderNidia MD [address] [place] [id number] Social History Tobacco Use Types Packs/Day Years Used Date Smoking Tobacco: Never Sex and Gender Information Value Date Recorded Sex Assigned at Not on file 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 Historical Provider Final Res ult * PROCEDURE - RESULT (04/15/2017 12:00 AM SAMPLER TESTER) Narrative 04/15/2017 12:00 AM SAMPLER TESTER Ordered by an unspecified provider. Historical Provider Final Res ult documented in this encounter Visit Diagnoses Not on filedocumented in this encounter Additional Health Concerns Infection Onset Date Last Indicated Resolved Time COVID: Suspected 01/17/2022 01/17/2022 01/17/2022 10:28 PM SAMPLER TESTER documented as of this encounter Care Teams Real Estate Agent Relationship Specialty Start Date End Date Asad Engel MD PCP - General 05/16/18 12/21/18 Anirudh Weathers DO PCP - General 12/22/18 12/28/18 Asad Engel MD PCP - General 12/29/18 09/16/22 Anirudh Weathers DO PCP - General Orthopedic Surgery 09/17/22 10/14/22 Asad Engel MD PCP - General Internal Medicine 10/15/22 Kodak Albright MD Consulting Physician Pain Management 07/05/22 Dajuan Weathers MD [address] [place] [id number] Referring Physician Pediatrics 10/15/22 documented as of this encounter
--- OUTSIDE RECORDS SUMMARY | 2024-07-10 08:30 | XMS_ITS | Continuity of Care Document ---
Author Organization [facility] Address [address] [facility] [address] [place] [address] Phone Care Team Providers Care Client Services Administrator Name Role Phone Dave Healy MD Unavailable [...] VISIT [facility], [address] [place] [address], [id number], tel:[phone] [facility] asthma (chief complaint) Body mass index (BMI) 36.0-36.9, adultModerate persistent asthma Feb-0 - 5 [address] [place], [address], [place]. tel:[phone] Referring Provider: Mario Alberto Blackman, [address] [facility], [address] [place], [address]. tel:[phone] Est (Level 3) OFFICE/OUTPA TIENT VISIT [facility], [address] [place] [address], [id number], [place] tel:[phone] [facility] asthma (chief complaint) Body mass index (BMI) 36.0-36.9, adultModerate persistent asthma Sep-0 -202 [address] [place], [address], [place]. tel:[phone] Referring Provider: Asad Engel, [address] [place] [address], [id number]. tel:[phone] Est (Level 4) OFFICE/OUTPA TIENT VISIT [facility], [address] [place] [address], [id number], tel:[phone] [facility] asthma (chief complaint) Body mass index (BMI) 36.0-36.9, adultModerate persistent asthmaGERD w/o esophagitisChron ic rhinitis May- 4 [address]iraj [address], [place], [address], [place]. tel:[phone] Referring Provider: [place], [address]. tel:[phone] [facility], [address] [place] [address], [id number], tel:[phone] [facility] No Information [address], [place], [address], [place]. tel:[phone] Referring Provider: [place], [address]. tel:[phone] Est (Level 4) OFFICE/OUTPA TIENT VISIT [facility], [address] [place] [address], [id number], tel:[phone] [facility] cough (chief complaint) Body mass index (BMI) 38.0-38.9, adultModerate persistent asthmaChronic rhinitisGERD w/o esophagitisCough , unspecified 3 [address], [place], [address], [place]. tel:[phone] Referring Provider: [place], [address]. tel:[phone] Est (Level 4) OFFICE/OUTPA TIENT VISIT [facility], [address] [place] [address], [id number], tel:[phone] [facility] allergies and asthma (chief complaint) Body mass index (BMI) 38.0-38.9, adultModerate persistent asthmaChronic rhinitisGERD w/o esophagitis Jul-0 8 3 [address], [place], [place], [facility], . tel:[phone] Referring Provider: Marti Wilhelm [place], [place], [facility]. tel:[phone] [facility], [address] [place] [address], [address] [place] [address], tel:[phone] [facility] No Information 3 [address], [place], [facility], . tel:[phone] Referring Provider: Asad Engel, [address] [place], [place], [facility]. tel:[phone] Est (Level 4) OFFICE/OUTPA TIENT VISIT [facility], [address] [place] [address], [id number], tel:[phone] [facility] asthma (chief complaint) Body mass index (BMI) 36.0-36.9, adultModerate persistent asthmaGERD w/o esophagitisChron ic rhinitis Jan-0 2 [address]ir[address], [place], [place], [facility], . tel:[phone] Referring Provider: Asad Engel [address] [place] [address], [facility]. tel:[phone] Est (Level 4) OFFICE/OUTPA TIENT VISIT [facility], [address] [place] [address], [id number], tel:[phone] [facility] allergies and asthma (chief complaint) Body mass index (BMI) 36.0-36.9, adultModerate persistent asthmaChronic rhinitisGERD w/o esophagitis Jul-0 2 [address], [place], [facility], [place]. tel:[phone] Referring Provider: Asad Engel, [address] [place], [address]. tel:[phone] New (Level 4) OFFICE/OUTPA TIENT VISIT [facility], [address], [id number], tel:[phone] [facility] allergies and asthma (chief complaint) Body mass index (BMI) 37.0-37.9, adultModerate persistent asthmaChronic rhinitis May- 2 Niraj [address]. [address] [facility], [place], [address], [place]. tel:[phone] Referring Provider: Asad Engel, [address] [place], [address]. tel:[phone] Family History Family Member Type Diagnosis Age At Onset No Information Payers Payer name Insurance type Covered green party ID Authoriza tion(s) [place] [id number] [facility] [id number] Social History Type Description Quantity Date Captured [...] well controlled.[facility]. 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 He suggested [...] Function Test- this can be done at [facility] if desired. I have provided a handwritten [...]
--- OUTSIDE RECORDS SUMMARY | 2024-07-10 08:30 | XMS_ITS | Encounter Summary ---
Author Organization [facility] Care Team Providers Care Social Research Assistant Name Role Phone Asad Engel MD Primary Care Provider [phone] Anirudh Weathers DO Primary Care Provider [phone] Asad Engel MD Primary Care Provider [phone] Kodak Albright MD Unavailable Anirudh Weathers DO Primary Care Provider [phone] Asad Engel MD Primary Care Provider [phone] Dajuan Weathers MD Unavailable [phone] Encounter Details Date Type Department Care Team (Latest Contact Info) Description 03/06/2017 Orders Only [facility] CLINCONV ProviderNidia MD [address] [place] [address] Social History Tobacco Use Types Packs/Day Years Used Date Smoking Tobacco: Never Sex and Gender Information Value Date Recorded Sex Assigned at Not on file Legal Sex Male 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 us Historical Provider Final Res ult documented in this encounter Visit Diagnoses Not on filedocumented in this encounter Additional Health Concerns Infection Onset Date Last Indicated Resolved Time COVID: Suspected 01/17/2022 01/17/2022 01/17/2022 10:28 PM JUTE BAG CUTTING MACHINE OPERATOR documented as of this encounter Care Teams Social Research Assistant Relationship Specialty Start Date End Date Asad Engel MD PCP - General 05/16/18 12/21/18 Anirudh Weathers DO PCP - General 12/22/18 12/28/18 Asad Engel MD PCP - General 12/29/18 09/16/22 Anirudh Weathers DO PCP - General Orthopedic Surgery 09/17/22 10/14/22 Asad Engel MD PCP - General Internal Medicine 10/15/22 Kodak Albright MD Consulting Physician Pain Management 07/05/22 Dajuan Weathers MD [facility] [address] [place], [place] [address] Referring Physician Pediatrics 10/15/22 documented as of this encounter
--- OUTSIDE RECORDS SUMMARY | 2024-07-10 08:30 | XMS_ITS | Continuity of Care Document ---
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 Name Role Phone Asad Engel MD Unavailable Unavailable Allergies, Adverse Reactions, Alerts Substance Reaction Status Criticality levofloxacin tendonitis Active No Information IODINE Active No Information DICLOFENAC SODIUM Active No Informa tion Medications Medication Instructions Dosage Effective Dates (start - stop) Status Comments hydrocodone 5 mg-acetaminophen 325 mg tablet take 1 tablet by oral route every 6 hours as needed for pain as needed 1.00 tablet - Active METFORMIN HCL ER 500 MG TABLET TAKE 2 TABLETS BY MOUTH DAILY WITH EVENING MEAL - Active OMEPRAZOLE DR 20 MG CAPSULE TAKE 1 CAPSULE BY MOUTH EVERY DAY - Active albuterol sulfate HFA 90 mcg/actuation aerosol inhaler inhale 1 puff by inhalation route every 4 - 6 hours as needed 90 MCG - Active Lexapro 10 mg tablet take 1 tablet by oral route every day 10 MG - Active oxybutynin chloride ER 5 mg tablet,extended release 24 hr take 1 tablet by oral route every day 5 MG - Active Xarelto 20 mg tablet TAKE 1 TABLET BY MOUTH DAILY WITH EVENING MEAL - Active Lisinopril 5 MG Oral Tablet TAKE 1 TABLET BY MOUTH DAILY - Active glimepiride 4 mg tablet TAKE 1 AND 1/2 TABLETS BY MOUTH DAILY - Active Metoprolol Succinate ER 50 MG Oral Tablet Extended Release 24 Hour TAKE 1 TABLET BY MOUTH DAILY - Active Januvia 100 MG Oral Tablet TAKE 1 TABLET BY MOUTH DAILY - Active omeprazole 20 mg tablet,delayed release take 1 tablet by oral route daily - Active furosemide 40 mg tablet take 1 tablet by oral route every day 40 MG - Active Atorvastatin Calcium 40 MG Oral Tablet TAKE 1 TABLET BY MOUTH DAILY - Active Flomax 0.4 mg capsule take 1 capsule by oral route every day 1/2 hour following the same meal each day 0.4 MG - Active Breo Ellipta 100 mcg-25 mcg/dose powder for inhalation inhale 1 puff by inhalation route every day at the same time each day 1.00 puff - Active FreeStyle Lite Strips test blood sugar daily - Active metformin ER 500 mg tablet,extended release 24 hr TAKE 2 TABLETS BY MOUTH DAILY WITH EVENING MEAL - No Longer Active hydrocodone 5 mg-acetaminophen 325 mg tablet take 1 tablet by oral route every 6 hours as needed for pain as needed 1.00 tablet - No Longer Active reviewed PDMP Procedures Procedure Date Pt inelig neg scrn depres FALL RISK ASSESSMENT DOC'D PPPS, subseq visit BODY MASS INDEX DOCD SYST BP GE 130 - 139MM HG DIAST BP < 80 MM HG CBC, INC PLATELETS AND DIFFERENTIAL COMPREHEN METABOLIC PANEL CMP HEMOGLOBIN A1C HGA1C, GLYCO LIPID PANEL MICROALBUMIN, QN (URINE) CREATININE, (U-R) PSA, TOTAL PARATHYROID HORMONE (PTH) ROUTINE VENIPUNCTURE [place] URINALYSIS, DIPSTICK (UA) - Office Lab D OFFICE [id number]-[id number] BODY MASS INDEX DOCD SYST BP LT 130 MM HG DIAST BP < 80 MM HG URINALYSIS, DIPSTICK (UA) - Office Lab N Pt inelig neg scrn depres Depression screen annual Clin depression screen doc OFFICE [id number] BODY MASS INDEX DOCD SYST BP LT 130 MM HG DIAST BP < 80 MM HG Admin influenza virus vac RIV3 VACCINE NO PRESERV IM BASIC METABOLIC PANEL(BMP) HEMOGLOBIN A1C HGA1C, GLYCO ROUTINE VENIPUNCTURE IL OFFICE [id number]-[id number] URINALYSIS, DIPSTICK (UA) - Office Lab J DSCHRG MED/CURRENT MED MERGE OFFICE [id number]-LZK-[id number] BODY MASS INDEX DOCD SYST BP GE [...] GLYCO Pt inelig neg scrn depres OFFICE REYGY-MWX-KEPPOLDB BODY MASS INDEX DOCD SYST BP LT 130 MM HG DIAST BP < 80 MM HG PNEUMOVAX ADM MEDICARE Pneumococcal Conjugate Vaccine (PCV20) A ROUTINE VENIPUNCTURE IL OFFICE VEXBA-FJB-KDQLVBAU BODY MASS INDEX DOCD SYST BP >= 140 MM HG6 IT DIAST BP < 80 MM HG URINALYSIS, DIPSTICK (UA) - Office Lab J Pt inelig neg scrn depres OFFICE SKWZC-ZNP-[id number] BODY MASS INDEX DOCD SYST BP >= 140 MM HG6 IT DIAST BP < 80 MM HG URINALYSIS, DIPSTICK (UA) - Office Lab M BASIC METABOLIC PANEL(BMP) BRAIN NATRIURETIC PEPTIDE (BNP) 023 OFFICE VBQZH-ZBN-QDCVEQGG BODY MASS INDEX DOCD SYST BP >= 140 MM HG6 IT DIAST BP < 80 MM HG ROUTINE VENIPUNCTURE IL Pt inelig neg scrn depres FALL RISK ASSESSMENT DOC'D PRES/ABSN URINE INCON ASSESS OFFICE VANXQ-NBP-[id number] PPPS, subseq visit BODY MASS INDEX DOCD SYST BP LT 130 MM HG DIAST BP < 80 MM HG CBC, INC PLATELETS AND DIFFERENTIAL COMPREHEN METABOLIC PANEL CMP HEMOGLOBIN A1C HGA1C, GLYCO LIPID PANEL MICROALBUMIN, QN (URINE) CREATININE, (U-R) PSA, TOTAL PARATHYROID HORMONE (PTH) ROUTINE VENIPUNCTURE IL OFFICE [id number]-NOW-[id number] BODY MASS INDEX DOCD SYST BP GE 130 - 139MM HG DIAST BP < 80 MM HG DSCHRG MED/CURRENT MED MERGE OFFICE ODNLR-WOQ-FUBEXVCE BODY MASS INDEX DOCD SYST BP LT 130 MM HG DIAST BP < 80 MM HG OFFICE SUFHG-EZE-GTSFQSBF BODY MASS INDEX DOCD SYST BP >= 140 MM HG6 IT DIAST BP < 80 MM HG URINALYSIS, DIPSTICK (UA) - Office Lab O Admin influenza virus vac Flu Vac, quad (RIV4), Preservative And A ntibiotic Free IM Pt inelig neg scrn depres OFFICE NCMFV-PVP-TKIPMYZQ BODY MASS INDEX DOCD SYST BP >= 140 MM HG6 IT DIAST BP < 80 MM HG URINALYSIS, DIPSTICK (UA) - Office Lab A BASIC METABOLIC PANEL(BMP) HEMOGLOBIN A1C HGA1C, GLYCO ROUTINE VENIPUNCTURE IL Pt inelig neg scrn depres OFFICE WZXMZ-MCG-XKLNHLVY BODY MASS INDEX DOCD SYST BP GE 130 - 139MM HG DIAST BP < 80 MM HG BASIC METABOLIC PANEL(BMP) HEMOGLOBIN A1C HGA1C, GLYCO ROUTINE VENIPUNCTURE IL URINALYSIS, DIPSTICK (UA) - Office Lab D Pt inelig neg scrn depres OFFICE GNCBO-QNE-LHCYYCJL [facility]ODY [facility] >= 140 MM HG6 IT DIAST BP < 80 MM HG OFFICE YCEMD-KAF-CDFRIGLP [facility]ODY [facility]ASS [facility]DEX [facility] SYST BP GE 130 - 139MM HG DIAST BP < 80 MM HG CBC, INC PLATELETS AND DIFFERENTIAL ROUTINE VENIPUNCTURE IL OFFICE CMCUE-OZJ-NAVPTDGJ BODY MASS INDEX [facility] SYST BP LT 130 MM HG DIAST BP < 80 MM HG CBC, INC PLATELETS AND DIFFERENTIAL COMPREHEN METABOLIC PANEL [facility] RBC SED RATE, AUTOMATED DRUG TEST (ANY NUMBER OF DRUG CLASSES) O GLUCOSE MONITORING, FINGERSTICK-OFFICE L AB ROUTINE VENIPUNCTURE IL Pt inelig neg scrn depres Admin influenza virus vac Flu Vac, quad (RIV4), Preservative And A ntibiotic Free IM PPPS, subseq visit BODY MASS INDEX DOCD SYST BP >= 140 MM HG6 IT DIAST BP < 80 MM HG CBC, INC PLATELETS AND DIFFERENTIAL COMPREHEN METABOLIC PANEL CMP HEMOGLOBIN A1C HGA1C, GLYCO LIPID PANEL MICROALBUMIN, QN (URINE) CREATININE, (U-R) PSA, TOTAL, SCREENING MEDICARE ONLY ROUTINE VENIPUNCTURE HEALTH RISK ASSESSMENT, PATIENT-FOCUSED MOUTHPIECE RESPIRATORY FLOW VOLUME LOOP OFFICE WSAQL-JYR-QGBWRWXL BODY MASS INDEX DOCD SYST BP >= 140 MM HG6 IT DIAST BP 80-89 MM HG Pt inelig neg scrn depres OFFICE UEVZM-BJK-XRSTPXCY BODY MASS INDEX DOCD SYST BP GE 130 - 139MM HG DIAST BP < 80 MM HG BASIC METABOLIC PANEL(BMP) HEMOGLOBIN A1C HGA1C, GLYCO ROUTINE VENIPUNCTURE IL HEALTH RISK ASSESSMENT, PATIENT-FOCUSED OFFICE TULBJ-FWT-SZIZDWGE BODY MASS INDEX DOCD SYST BP >= 140 MM HG6 IT DIAST BP < 80 MM HG MOUTHPIECE RESPIRATORY FLOW VOLUME LOOP Pt inelig neg scrn depres OFFICE NHKKO-RON-UTCLJGUA BODY MASS INDEX DOCD SYST BP GE [...] VENIPUNCTURE IL HEALTH RISK ASSESSMENT, PATIENT-FOCUSED OFFICE QBBMW-JJA-ZHOOMNYY BODY MASS INDEX DOCD SYST BP >= 140 MM HG6 IT DIAST BP 80-89 MM HG RESPIRATORY FLOW VOLUME LOOP MOUTHPIECE Pt inelig neg scrn depres OFFICE KNHKE-ARM-VHLNPZEH BODY MASS INDEX DOCD SYST BP >= [...] HG Pt inelig neg scrn depres OFFICE GHRLC-BQA-CXIEPWGR BODY MASS INDEX DOCD SYST BP LT 130 MM HG DIAST BP < 80 MM HG Pt inelig neg scrn depres OFFICE MUUES-CWU-TUEUEMHF BODY MASS INDEX DOCD SYST BP >= 140 MM HG6 IT DIAST BP < 80 MM HG CBC, INC PLATELETS AND DIFFERENTIAL COMPREHEN METABOLIC PANEL [facility] 0 ROUTINE VENIPUNCTURE IL FALL PLAN OF CARE DOC'D URINE INCON PLAN DOC'D PRES/ABSN URINE INCON ASSESS Admin influenza virus vac Flu Vac, quad (RIV4), Preservative And A ntibiotic Free IM Pt inelig neg scrn depres OFFICE YREIU-SWR-TCMBTTDT PPPS, subseq visit BODY MASS INDEX DOCD SYST BP GE 130 - 139MM HG DIAST BP < 80 MM HG CBC, INC PLATELETS AND DIFFERENTIAL COMPREHEN METABOLIC PANEL [facility] 9 HEMOGLOBIN A1C HGA1C, GLYCO LIPID PANEL MICROALBUMIN, QN (URINE) CREATININE, (U-R) PSA, TOTAL, SCREENING MEDICARE ONLY ROUTINE VENIPUNCTURE IL CBC, INC PLATELETS AND DIFFERENTIAL COMPREHEN METABOLIC PANEL [facility] 9 ROUTINE VENIPUNCTURE IL OFFICE DVLDQ-OTP-WCIVYKLU BODY MASS INDEX DOCD SYST BP >= 140 MM HG6 IT DIAST BP < 80 MM HG OFFICE QTKEO-CKC-LCIFJVUB BODY MASS INDEX DOCD SYST BP GE 130 - 139MM HG DIAST BP < 80 MM HG PULMONARY SPIROMETRY, FUNCTION 19 MOUTHPIECE ADM SET WITH SMALL VOL NON FILTERED PNEU MATIC NEBULIZER DISPOSABLE INHALATION TREATMENT/THERAPY HEALTH RISK ASSESSMENT, PATIENT-FOCUSED OFFICE BOTTH-PRI-ZZWJEJBS BODY MASS INDEX DOCD SYST BP GE 130 - 139MM HG DIAST BP < 80 MM HG MOUTHPIECE PULMONARY SPIROMETRY, FUNCTION 19 Pt inelig neg scrn depres OFFICE [id number]-YNZ-QXKCZQWQ BODY MASS INDEX DOCD SYST BP >= [...] Diagnoses Date Provider Providers Copied on Encounter [employer] [place], [address], [place], [place], [address] , [place] tel:[phone] [employer] [facility] No Information 0 5 English Kamara. [address] [place], [address], [place]. tel:[phone] [employer] [place], [address], [place], [place], [address] , [place] tel: [phone] [employer] [facility] No Information 5 German Asad. [address] [place], [address], [place]. tel:[phone] [employer] [place], [address], [place], [place], [address] , [place] tel: [phone] [employer] [facility] No Information 5 German Asad. [address] [place], [address], [place]. tel:[phone] [employer] [place], [address], [place], [place], [address] , [place] tel: [phone] [employer] PX (chief complaint)Me dicare preventive (chief complaint) Chronic obstructive pulmonary disease, unspecifiedCo ronary atheroscleros is due to calcified coronary lesionDiabete s mellitus with peripheral circulatory disorderStage 3 chronic kidney disease, unspecified whether stage 3a or 3b CKDHypertensi ve chronic kidney disease with stage 1 through stage 4 chronic kidney disease, or unspecified chronic kidney diseaseMild cerebral atrophyProsta te cancerModerat e major depressionPul monary hypertensionR outine medical examAtheroscl erosis of aortaBody mass index [BMI] 39.0-39.9, adultRecurren t deep vein thrombosis (DVT)Morbid (severe) obesity due to excess caloriesAnemi a due to blood loss, chronic 5 English Kamara. [address] [place], [address], [place]. [phone] Referring Provider: Asad Engel, [address] [place], [address] . tel:[phone] [employer], [address], [place], [place], [address] , [place] tel: [phone] [employer] [facility] No Information 5 Yani Coates. [address] [facility], [place] [address], [place], [place], [address], [place]. tel:[phone] Referring Provider: [place], [address] . tel:[phone] [facility], [address], [place], [place], [address] , tel: [phone] [facility] Diabetes mellitus with peripheral circulatory disorderStage 3 chronic kidney disease, unspecified whether stage 3a or 3b CKDHypertensi ve chronic kidney disease with stage 1 through stage 4 chronic kidney disease, or unspecified chronic kidney diseaseOther and unspecified hyperlipidemi aProstate cancer 5 English Kamara. [address] [place], [address], [place]. tel:[phone] Referring Provider: [place], [address] . tel:[phone] [facility], [address], [place], [place], [address] , [place] tel: [phone] [facility] Acute UTI 4 English Kamara. [address] [place] [address], [id number], [place]. [phone] Referring Provider: [place], [address] . tel:[phone] OFFICE QAPVB-QDE-AXG CUATE [facility], [address], [place], [place], [address] , tel: [phone] [facility] hematuria (chief complaint) Acute UTI 4 Jose Raul Bloom. [address] [place], [place], [address], [place]. [phone] Referring Provider: [place], [address] . tel:[phone] [facility], [address], [place], [place], [address] , tel: [phone] [facility] No Information 4 English Kamara. [address] [place] [address], [id number], [place]. tel:[phone] [facility], [address], [place], [place], [address] , [place] tel: [phone] [facility] No Information Nov-0 4 English Kamara. [address] [place], [address], [place]. tel:[phone] [facility], [address], [place], [place], [address] , [place] tel: [phone] [facility] No Information Sep-0 4 English Kamara. [address] [place], [address], [place]. tel:[phone] OFFICE OMDEJ-BKC-TOX CUATE [facility], [address], [place], [place], [address] , [place] tel: [phone] [facility] chronic conditons (chief complaint) Diabetes mellitus with peripheral circulatory disorderEssen tial (primary) hypertensionB jumana mass index [BMI] 37.0-37.9, adultModerate persistent asthma, uncomplicated Moderate major depression Sep-0 4 English Kamara. [address] [place], [address], [place]. tel:[phone] Referring Provider: Asad Engel, [place], [address] . tel:[phone] [facility] [address], [place], [place], [address] , [place] tel: [phone] [facility] No Information Sep-0 4 Yani Coates. [address], [id number], [place]. tel:[phone] Referring Provider: [place], [address] . tel:[phone] [facility], [address], [place], [place], [address] , [place] tel: [phone] [facility] Stage 3 chronic kidney disease, unspecified whether stage 3a or 3b CKDType 2 DM with CKD stage 3 and hypertensionH ypertensive chronic kidney disease with stage 1 through stage 4 chronic kidney disease, or unspecified chronic kidney disease Oct-0 4 English Kamara. [address] [place], [address], . tel:[phone] Referring Provider: Asad Engel, [place], [address] . tel:[phone] [employer] [place], [address], [place], [place], [address] , tel: [phone] [employer] [facility] No Information 4 English Kamara. [address] [place], [address], [place]. tel:[phone] [employer] [place], [address], [place], [place], [address] , tel: [phone] [employer] [facility] No Information 4 English Kamara. [address] [place], [address], [place]. tel:[phone] OFFICE MHHQC-WGH-EEY ANDED [employer] [place], [address], [place], [place], [address] , tel: [phone] [employer] increased urination (chief complaint) Benign prostatic hyperplasia, unspecified whether lower urinary tract symptoms present 4 English Kamara. [address] [place], [address], [place]. tel:[phone] Referring Provider: [place], [address] . tel:[phone] OFFICE ABBIB-COJ-GAN ANDED [employer] [place], [address], [place], [place], [address] , tel: [phone] [employer] [facility] ER followup (chief complaint) Acute UTIMass of right testicleBody mass index [BMI] 39.0-39.9, adult May-0 4 Jose Raul Bloom. [address] [place], [place], [address], [place]. tel:[phone] Referring Provider: Asad German, [address] [place], [address] . tel:[phone] [facility], [address], [place], [place], [address] , [place] tel: [phone] [facility] No Information 4 German Asad. [address] [place], [address], [place]. tel:[phone] [facility], [address], [place], [place], [address] , [place] tel: [phone] [facility] px (chief complaint)Me dicare preventive (chief complaint) [...] stage 3a or 3b CKDProstate cancer 4 German Asad. [address] [place], [address], [place]. [phone] Referring Provider: Asad Engel, [place], [address] . tel:[phone] [facility], [address], [place], [place], [address] , [place] tel: [phone] [facility] No Information 4 Yani Hilln. [address] [facility], [address], [address], [place]. tel:[phone] Referring Provider: [place], [address] . tel:[phone] [facility], [address], [place], [place], [address] , [place] tel: [phone] [facility] Hypertensive chronic kidney disease with stage 1 through stage 4 chronic kidney disease, or unspecified chronic kidney diseaseStage 3 chronic kidney disease, unspecified whether stage 3a or 3b CKDType 2 DM with CKD stage 3 and hypertensionH yperlipidemia , unspecified hyperlipidemi a typeProstate cancer 4 English Kamara. [address] [place], [address], [place]. tel:[phone] Referring Provider: [place], [address] . tel:[phone] [employer] [place], [address], [place], [place], [address] , [place] [phone] [employer] [facility] No Information 3 English Kamara. [address] [place], [address], [place]. tel:[phone] Referring Provider: [place], [address] . tel:[phone] [facility], [address], [place], [place], [address] , tel:[phone] [facility] No Information 3 Yani Coates. [address] [place] [address], [id number], . tel:[phone] Referring Provider: [place], [address] . tel:[phone] OFFICE JRLJH-RTF-YXY CU[facility], [address], [place], [place], [address] , tel: [phone] [facility] Chr conditions (chief complaint) Moderate persistent asthma, uncomplicated Type 2 DM with CKD stage 3 and hypertensionH ypertensive chronic kidney disease with stage 1 through stage 4 chronic kidney disease, or unspecified chronic kidney diseaseStage 3 chronic kidney disease, unspecified whether stage 3a or 3b CKDBody mass index [BMI] 39.0-39.9, adult 3 English Kamara. [address] [place], [address], [place]. tel:[phone] Referring Provider: Asad Engel, [address] [place], [address] . tel:[phone] OFFICE TAUCJ-BJB-JYV ANDED [employer] [place], [address], [place], [place], [address] , tel: [phone] [facility] bilat feet swelling (chief complaint) Leg swelling 3 English Kamara. [address] [place], [address], [place]. [phone] Referring Provider: Asad Engel, [address] [place], [address] . tel:[phone] [employer] [place], [address], [place], [place], [address] , tel: [phone] [facility] Frequent urination 3 English Kamara. [address] [place], [address], [place]. [phone] Referring Provider: Asad Engel, [address] [place], [address] . tel:[phone] OFFICE OUZER-SAG-CBO ANDED [facility], [address], [place], [place], [address] , tel: [phone] [facility] Patient encounter (chief complaint) Body mass index [BMI] 40.0-44.9, adultLeg swelling 3 English Kamara. [address] [place], [address], [place]. tel:[phone] Referring Provider: Asad Engel, [address] [place], [address] . tel:[phone] [employer] [place], [address], [place], [place], [address] , tel: [phone] [facility] No Information June-0 3 English Kamara. [address] [place], [address], [place]. tel:[phone] [facility], [address], [place], [place], [address] , [place] tel: [phone] [facility] No Information 3 Yani Coates. [address] [facility], [facility] [address], [place], [place], [address], . tel:[phone] Referring Provider: Asad Engel, [address] [place], [address] . tel:[phone] OFFICE DYWPS-ACE-YVN ANDED [facility], [address], [place], [place], [address] , [place] tel: [phone] [facility] feet and ankle swelling (chief complaint) Leg swelling 3 English Kamara. [address] [place], [address], [place]. [phone] Referring Provider: sAad Engel, [address] [place], [address] . tel:[phone] OFFICE ZJCMW-QRJ-PYY ANDED [facility], [address], [place], [place], [address] , [place] tel: [phone] [facility] Patient encounter (chief complaint)Me dicare preventive (chief complaint) Diabetes mellitus with peripheral circulatory disorderOSA (obstructive sleep apnea)Dyslipi demia, goal LDL below 100Prostate cancerMild cerebral atrophyStage 3 chronic kidney disease, unspecified whether stage 3a or 3b CKDGastro-eso phageal reflux disease without esophagitisAt herosclerosis of [place] coronary artery of [place] heart without angina pectorisAther osclerosis of aortaHistory [...] adultAcute nonintractabl e headache, unspecified headache type Fe- 3 Jose Raul Bloom. [address] [place], [place], [address], [place]. tel:[phone] Referring Provider: Asad Engel, [address] [place], [address] . tel:[phone] [facility], [address], [place], [place], [address] , [place] [phone] [facility] No Information 3 Yani Coates. [address] [facility], [place] [address], [place], [place], [address], . tel:[phone] Referring Provider: Asad Engel, [address] [place], [address] . tel:[phone] [facility], [address], [place], [place], [address] , [place] [phone] [facility] History of malignant neoplasm of prostateHyper tensive chronic kidney disease with stage 1 through stage 4 chronic kidney disease, or unspecified chronic kidney diseaseStage 3 chronic kidney disease, unspecified whether stage 3a or 3b CKDDiabetic peripheral angiopathyHyp erlipidemia, unspecified hyperlipidemi a type 3 English Kamara. [address] [place], [place], [address], [place]. tel:[phone] Referring Provider: [place], [address] . tel:[phone] OFFICE YNJBK-UFN-ZKI ANDED 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 nursing home (current) use of anticoagulants 2022 Assessment & [...] syndrome 11/01/2021 Acute respiratory failure with hypoxia 2 Asthma complicating , antepartum 2021 Benign prostatic hyperplasia 11/01/2021 Congestive heart failure wit h left ventricular diastolic dysfunction 11/01/2021 DVT (deep venous thrombosis) 11/01/2021 Overview (11/01/2021): Last Assessment & Plan: Remote [...] 2019 Assessment & Plan (01/24/2020 5:03 PM SPORTS CLERK): Differential diagnosis for persistent pain would include [...] 02/26 Assessment & Plan (01/24/2020 5:02 PM SPORTS CLERK): We discussed the adverse effects of extra [...] arthroplasty Assessment & Plan (03/23/2019 4:16 PM SPORTS CLERK): We discussed the adverse effects of weight [...] consult Assessment & Plan (03/23/2019 4:15 PM SPORTS CLERK): Currently being treated by pain management Assessment & Plan (02/12/2019 2:51 PM SPORTS CLERK): After having a steroid injection to lumbar [...] 019 Assessment & Plan (02/12/2019 2:52 PM SPORTS CLERK): Previous aspiration suggested that there might be [...] 08/14/2017 Assessment & Plan (02/12/2019 2:52 PM SPORTS CLERK): May also be contributing to some of his lower extremity pain Assessment & Plan (12/01/2018 1:19 PM CDT): Certainly some of the pain could be due to diabetic neuropathy. Consider EMG NCV in the future if bone scan were to come back without loosening. Primary osteoarthritis of right hip 08/14/2017 Type 2 diabetes mellitus wit h diabetic nephropathy ([facility]) 08/14/2017 Assessment & Plan (01/24/2020 5:03 PM SPORTS CLERK): Possibility of diabetic neuropathy. Consider EMG NCV in the future. Assessment & Plan (08/02/2019 4:59 PM CDT): Possibility of diabetic neuropathy consider EMG NCV in the future. Increased risk for infection, aspirate the knee to make sure there is no infection Assessment & Plan (05/14/2019 10:55 AM CDT): Increases the risk for postoperative complication Assessment & Plan (03/23/2019 4:15 PM SPORTS CLERK): Increases the risk for postoperative complication Assessment & Plan (02/12/2019 2:51 PM SPORTS CLERK): Increases risk for postoperative complication Post-phlebitic syndrome [...] head of the bed, and weight loss Surgical History Surgery Date Site/Laterality Comments HAND SURGERY Left left long trigger finger THUMB SURGERY EXC RT THUMB MUCOUS CYST REVISION TOTAL KNEE ARTHROPLASTY 05/01/2017 Right TOTAL KNEE ARTHROPLASTY 04/16/2019 Left Medical History Medical History Date Comments Hypertension Hypercholesteremia Diabetes mellitus (HCC) Allergic rhinitis Asthma Hx of blood clots Glaucoma PVD (peripheral vascular disease) Lumbar facet arthropathy Lumbar spondylosis Lumbar stenosis [...] on file Legal Sex Male 7:27 PM SPORTS CLERK Gender Identity Not on file Sexual Orientation Not on file Occupation Industry Job Start Date Job End Date retired Not on file Not on file Not on file Obstetrics History Last Filed Vital Signs Vital Sign Reading Time Taken Comments Blood Pressure 129/55 02/13/2024 8:07 AM SPORTS CLERK Pulse 86 02/13/2024 8:07 AM SPORTS CLERK Temperature 36.9 C (98.4 F) 02/13/2024 8:07 AM SPORTS CLERK Respiratory Rate 18 02/13/2024 8:07 AM SPORTS CLERK Oxygen Saturation 94% 02/13/2024 8:07 AM SPORTS CLERK Inhaled Oxygen Concentration - - Weight 104.4 kg (230 lb 1.6 oz) 02/13/2024 8:07 AM SPORTS CLERK Height 167.6 cm (5' 6 ) 02/13/2024 8:07 AM SPORTS CLERK Body Mass Index 37.14 02/13/2024 8:07 AM SPORTS CLERK Plan of Treatment Health Maintenance Due Date Last Done Comments Albumin Creatinine Ratio, Urine 1945 Depression Screening 1945 Hepatitis C Screening 1945 Dilated Eye Exam 1946 Foot Exam 1946 DTaP/Tdap/Td Vaccine (1 - Tdap) 1957 Hepatitis B Screening 1964 Zoster Vaccine (1 of 2) 1996 Well Visit 65+ 07/03/2011 Hemoglobin A1C 10/01/2019 04/02/2019, 08/2018, 05/04/2017 Fall Risk Assessment 10/17/2023 10/16/2022 Lipid [...] Screening-Sigmoidoscopy Discontinued Medical Devices Implanted Type Area Cytogenetic Technologist Device Identifier Shelf Expiration Date Model / Serial / Lot Other - See Comments Other - see comments Bilateral : Knee Screw Screw Right: First Toe Procedures Procedure Name Priority Date/Time Associated Diagnosis Comments EGFR STAT 06/23/2023 9:48 AM CDT TNI WITH LIPID PANEL Routine 05/16/2019 10:26 PM CDT HEMOGLOBIN A1C Routine 04/02/2019 2:25 PM SPORTS CLERK OCCULT BLOOD, FECAL (FIT) Routine 03/02/2018 12:30 PM SPORTS CLERK from Last 3 Months or Most Recently Relevant to Health Maintenance Results * (ABNORMAL) eGFR (06/23/2023 9:48 AM CDT) [...] LAB BLOOD ORDERABLES Final Re sult FR[facility] [address] [facility] Department [place] [address] * TNI with LIPID PANEL (05/16/2019 10:26 PM CDT) Troponin I <0.300 0.000 - 0.300 ng/mL [facility] Comment: Reference using REED Chemiluminescence Negative: Repeat in 4-6 hours as indicated. Triglycerides 54 0 - 149 mg/dL [facility] Comment: National Lipid Association/NCEP Guidelines: Normal < 150 mg/dL Borderline high 150-199 mg/dL High 200-499 mg/dL Very High >=500 mg/dL Cholesterol 106 0 - 199 mg/dL [facility] Comment: National Lipid Association/NCEP Guidelines: Desirable < 200 mg/dL Borderline high: 200-239 mg/dL High Risk: >=240 mg/dL HDL Cholesterol 40 mg/dL [facility] Comment: Reference Ranges: Males: >=40 mg/dL Females: >=50 mg/dL LDL Cholesterol, Calc 55 0 - 129 mg/dL [facility] Comment: National Lipid Association/NCEP Guidelines: Optimal < 100 mg/dL Near Optimal 100-129 mg/dL Borderline high 130-159 mg/dL High >=160 mg/dL Cholesterol/HDL Ratio 2.[address] [facility] Comment: Optimal < 3.5:1 High > 5:1 05/16/2019 10:2 6 PM CDT 05/16/2019 10:50 PM CDT Narrative Resulting Agency Comment ER us Geni Faustin DO LAB BLOOD ORDERABLES Final Resu lt [place] [id number] [address] [phone] * (ABNORMAL) Hemoglobin A1c (04/02/2019 2:25 PM SPORTS CLERK) Hemoglobin A1c % 6.6(H) 4.0 - 5.6 % [facility] Comment: ADA 2016 GUIDELINES: Initial Diagnostic Criteria HbA1c Result: Interpretation: <5.7% Normal 5.7-6.4% At risk for diabetes mellitus >=6.5% Consistent with diabetes mellitus Diabetes monitoring Target value (ADA Recommended) <7% 04/02/2019 2:25 PM SPORTS CLERK 04/02/2019 2:30 PM SPORTS CLERK Narrative Resulting Agency Comment CLI Anirudh Weathers DO LAB BLOOD ORDERABLES Shivani l Result Performing Organization Address [facility] Co de Phone Number [address] [phone] * Occult blood, fecal non neoplasm screening (03/02/2018 12:30 PM SPORTS CLERK) Stool Occult Blood POSITIVE NEGATIVE 03/02/2018 12:52 PM SPORTS CLERK [facility] HISTORICAL RESULTS 03/02/2018 12:3 0 PM SPORTS CLERK 03/02/2018 12:49 PM SPORTS CLERK Narrative [facility] HISTORICAL RESULTS - 03/02/2018 12:52 PM SPORTS CLERK Collected By cris Jelly Alarcon HOME CARE AIDE LAB BODY FLUIDS AND STOOLS O RDERABLES Final Result [facility] HISTORICAL RESULTS from Last 3 Months or Most Recently Relevant to Health Maintenance Insurance MEDICARE [employer] [place] MEDICARE [employer] [facility] Advance Directives For more information, please contact: [phone] * Full Code (Latest Code Status on File) Date Activated Date Inactivated Comments 01/18/2022 1:15 AM 01/19/2022 6:58 PM * Full Code Date Activated Date Inactivated Comments 01/17/2022 10:05 PM 01/18/2022 1:15 AM Care Teams Plate Painter Apprentice Relationship Specialty Start Date End Date Asad Engel MD PCP - General Internal Medicine 10/15/22 Kodak Albright MD Consulting Physician Pain Management 07/05/22 [place] [address] [place] [id number] Referring Physician Pediatrics 10/15/22 "
--- OUTSIDE RECORDS SUMMARY | 2024-07-10 08:30 | XMS_ITS | Encounter Summary ---
Author Organization [facility] Facility Care Team Providers Care Call Center Associate Name Role Phone Asad Engel MD Primary Care Provider [phone] Anirudh Weathers DO Primary Care Provider [phone] Asad Engel MD Primary Care Provider [phone] Kodak Albright MD Unavailable Anirudh Weathers DO Primary Care Provider [phone] Asad Engel MD Primary Care Provider [phone] Dajuan Weathers MD Unavailable [phone] Encounter Details Date Type Department Care Team (Latest Contact Info) Description 03/13/2017 Orders Only [facility] CLINCONV ProviderNidia MD [address] [place] [address] Social History Tobacco Use Types Packs/Day Years Used Date Smoking Tobacco: Never Sex and Gender Information Value Date Recorded Sex Assigned at Not on file Legal Sex Male 7:27 PM TRACTOR OPERATOR Gender Identity Not on file Sexual Orientation Not on file documented as of this encounter Plan of Treatment Not on file documented as of this encounter Procedures Procedure Name Priority Date/Time Associated Diagnosis Comments SCAN - LABS 03/13/2017 12:00 AM TRACTOR OPERATOR documented in this encounter Results * SCAN - LABS (03/13/2017 12:00 AM TRACTOR OPERATOR) Narrative 03/13/2017 12:00 AM TRACTOR OPERATOR Ordered by an unspecified provider. us Historical Provider Final Res ult documented in this encounter Visit Diagnoses Not on filedocumented in this encounter Additional Health Concerns Infection Onset Date Last Indicated Resolved Time COVID: Suspected 01/17/2022 01/17/2022 01/17/2022 10:28 PM TRACTOR OPERATOR documented as of this encounter Care Teams Call Center Associate Relationship Specialty Start Date End Date Asad Engel MD PCP - General 05/16/18 12/21/18 Anirudh Weathers DO PCP - General 12/22/18 12/28/18 Asad Engel MD PCP - General 12/29/18 09/16/22 Anirudh Weathers DO PCP - General Orthopedic Surgery 09/17/22 10/14/22 Asad Engel MD PCP - General Internal Medicine 10/15/22 Kodak Albright MD Consulting Physician Pain Management 07/05/22 Dajuan Weathers MD [facility] [place], [place] [address] Referring Physician Pediatrics 10/15/22 documented as of this encounter
--- OUTSIDE RECORDS SUMMARY | 2024-07-10 08:30 | XMS_ITS | Referral Summary ---
Author Organization [facility] Address [address] [place] [address] Care Team Providers Care Plant Operator Control Room Operator Name Role Phone Kodak Albright MD Unavailable Asad Engel MD Primary Care Provider [phone] Dajuna Weathers MD Unavailable [phone] Allergies Active Allergy Reactions Criticality Noted Date [...] Intermittent dysphagia to solids -EGD as above. terminal gauger (current) use of anticoagulants 2022 Assessment & [...] syndrome 11/01/2021 Acute respiratory failure with hypoxia Asthma complicating , antepartum 2021 Benign prostatic [...] 2019 Assessment & Plan (01/24/2020 5:03 PM SINTER FEEDER): Differential diagnosis for persistent pain would include [...] 02/26 Assessment & Plan (01/24/2020 5:02 PM SINTER FEEDER): We discussed the adverse effects of extra [...] arthroplasty Assessment & Plan (03/23/2019 4:16 PM SINTER FEEDER): We discussed the adverse effects of weight [...] consult Assessment & Plan (03/23/2019 4:15 PM SINTER FEEDER): Currently being treated by pain management Assessment & Plan (02/12/2019 2:51 PM SINTER FEEDER): After having a steroid injection to lumbar [...] 019 Assessment & Plan (02/12/2019 2:52 PM SINTER FEEDER): Previous aspiration suggested that there might be [...] 08/14/2017 Assessment & Plan (02/12/2019 2:52 PM SINTER FEEDER): May also be contributing to some of his lower extremity pain Assessment & Plan (12/01/2018 1:19 PM CDT): Certainly some of the pain could be due to diabetic neuropathy. Consider EMG NCV in the future if bone scan were to come back without loosening. Primary osteoarthritis of right hip 08/14/2017 Type 2 diabetes mellitus wit h diabetic nephropathy ([facility]) 08/14/2017 Assessment & Plan (01/24/2020 5:03 PM SINTER FEEDER): Possibility of diabetic neuropathy. Consider EMG NCV in the future. Assessment & Plan (08/02/2019 4:59 PM CDT): Possibility of diabetic neuropathy consider EMG NCV in the future. Increased risk for infection, aspirate the knee to make sure there is no infection Assessment & Plan (05/14/2019 10:55 AM CDT): Increases the risk for postoperative complication Assessment & Plan (03/23/2019 4:15 PM SINTER FEEDER): Increases the risk for postoperative complication Assessment & Plan (02/12/2019 2:51 PM SINTER FEEDER): Increases risk for postoperative complication Post-phlebitic syndrome [...] on file Legal Sex Male 7:27 PM SINTER FEEDER Gender Identity Not on file Sexual Orientation Not on file Occupation Industry Job Start Date Job End Date retired Not on file Not on file Not on file Last Filed Vital Signs Vital Sign Reading Time Taken Comments Blood Pressure 129/55 02/13/2024 8:07 AM SINTER FEEDER Pulse 86 02/13/2024 8:07 AM SINTER FEEDER Temperature 36.9 C (98.4 F) 02/13/2024 8:07 AM SINTER FEEDER Respiratory Rate 18 02/13/2024 8:07 AM SINTER FEEDER Oxygen Saturation 94% 02/13/2024 8:07 AM SINTER FEEDER Inhaled Oxygen Concentration - - Weight 104.4 kg (230 lb 1.6 oz) 02/13/2024 8:07 AM SINTER FEEDER Height 167.6 cm (5' 6 ) 02/13/2024 8:07 AM SINTER FEEDER Body Mass Index 37.14 02/13/2024 8:07 AM SINTER FEEDER Plan of Treatment Not on file Medical Devices Implanted Type Area Caramel Cutter Machine Device Identifier Shelf Expiration Date Model / Serial / Lot Other - See Comments Other - see comments Bilateral : Knee Screw Screw Right: First Toe Procedures Procedure Name Priority Date/Time Associated Diagnosis Comments EGFR STAT 06/23/2023 9:48 AM CDT TNI WITH LIPID PANEL Routine 05/16/2019 10:26 PM CDT HEMOGLOBIN A1C Routine 04/02/2019 2:25 PM SINTER FEEDER OCCULT BLOOD, FECAL (FIT) Routine 03/02/2018 12:30 PM SINTER FEEDER from Last 3 Months or Most Recently [...] LAB BLOOD ORDERABLES Final Re sult [facility] [address] [facility] Department [place] [address] * TNI with LIPID PANEL (05/16/2019 10:26 PM CDT) Troponin I <0.300 0.000 - 0.300 ng/mL [facility] Comment: Reference using REED Chemiluminescence Negative: Repeat in 4-6 hours as indicated. Triglycerides 54 0 - 149 mg/dL [facility] Comment: National Lipid Association/NCEP Guidelines: Normal < 150 mg/dL Borderline high 150-199 mg/dL High 200-499 mg/dL Very High >=500 mg/dL Cholesterol 106 0 - 199 mg/dL [facility] Comment: National Lipid Association/NCEP Guidelines: Desirable < 200 mg/dL Borderline high: 200-239 mg/dL High Risk: >=240 mg/dL HDL Cholesterol 40 mg/dL [facility] Comment: Reference Ranges: Males: >=40 mg/dL Females: >=50 mg/dL LDL Cholesterol, Calc 55 0 - 129 mg/dL [facility] Comment: National Lipid Association/NCEP Guidelines: Optimal < 100 mg/dL Near Optimal 100-129 mg/dL Borderline high 130-159 mg/dL High >=160 mg/dL Cholesterol/HDL Ratio 2.7 [facility] Comment: Optimal < 3.5:1 High > 5:1 05/16/2019 10:2 6 PM CDT 05/16/2019 10:50 PM CDT Narrative Resulting Agency Comment ER Geni Faustin DO LAB BLOOD ORDERABLES Final Resu lt Performing Organization Address [facility] Co de Phone Number [address] [phone] * (ABNORMAL) Hemoglobin A1c (04/02/2019 2:25 PM SINTER FEEDER) Hemoglobin A1c % 6.6(H) 4.0 - 5.6 % [facility] Comment: ADA 2016 GUIDELINES: Initial Diagnostic Criteria HbA1c Result: Interpretation: <5.7% Normal 5.7-6.4% At risk for diabetes mellitus >=6.5% Consistent with diabetes mellitus Diabetes monitoring Target value (ADA Recommended) <7% 04/02/2019 2:25 PM SINTER FEEDER 04/02/2019 2:30 PM SINTER FEEDER Narrative Resulting Agency Comment CLI Anirudh Weathers DO LAB BLOOD ORDERABLES Shivani l Result Performing Organization Address [facility] Co de Phone Number [address] [phone] * Occult blood, fecal non neoplasm screening (03/02/2018 12:30 PM SINTER FEEDER) Stool Occult Blood POSITIVE NEGATIVE 03/02/2018 12:52 PM SINTER FEEDER [facility] HISTORICAL RESULTS 03/02/2018 12:3 0 PM SINTER FEEDER 03/02/2018 12:49 PM SINTER FEEDER Narrative [facility] HISTORICAL RESULTS - 03/02/2018 12:52 PM SINTER FEEDER Collected By cris Jelly Alarcon FLATTENING MACHINE OPERATOR LAB BODY FLUIDS AND STOOLS O RDERABLES Final Result [facility] HISTORICAL RESULTS from Last 3 Months or Most Recently Relevant to Health Maintenance Insurance MEDICARE [employer] [place] MEDICARE [employer] [facility] Advance Directives For more information, please contact: [phone] * Full Code (Latest Code Status on File) Date Activated Date Inactivated Comments 01/18/2022 1:15 AM 01/19/2022 6:58 PM * Full Code Date Activated Date Inactivated Comments 01/17/2022 10:05 PM 01/18/2022 1:15 AM Care Teams Plant Operator Control Room Operator Relationship Specialty Start Date End Date Asad Engel MD PCP - General Internal Medicine 10/15/22 Kodak Albright MD Consulting Physician Pain Management 07/05/22 [place] [address] [place] [address] [id number] Referring Physician Pediatrics 10/15/22
--- OUTSIDE RECORDS SUMMARY | 2024-07-10 08:30 | XMS_ITS | Encounter Summary ---
Author Organization [facility] Facility Care Team Providers Care Thermodynamicist Name Role Phone Asad Engel MD Primary Care Provider [phone] Anirudh Weathers DO Primary Care Provider [phone] Asad Engel MD Primary Care Provider [phone] Kodak Albright MD Unavailable Anirudh Weathers DO Primary Care Provider [phone] Asad Engel MD Primary Care Provider [phone] Dajuan Weathers MD Unavailable [phone] Encounter Details Date Type Department Care Team (Latest Contact Info) Description 03/05/2017 Orders Only [facility] CLINCONV ProviderNidia MD [address] [place] [address] Social History Tobacco Use Types Packs/Day Years Used Date Smoking Tobacco: Never Sex and Gender Information Value Date Recorded Sex Assigned at Not on file Legal Sex Male 7:27 PM PCMH SPECIALIST Gender Identity Not on file Sexual Orientation Not on file documented as of this encounter Plan of Treatment Not on file documented as of this encounter Procedures Procedure Name Priority Date/Time Associated Diagnosis Comments SCAN - LABS 03/05/2017 12:00 AM PCMH SPECIALIST documented in this encounter Results * SCAN - LABS (03/05/2017 12:00 AM PCMH SPECIALIST) Narrative 03/05/2017 12:00 AM PCMH SPECIALIST Ordered by an unspecified provider. us Historical Provider Final Res ult documented in this encounter Visit Diagnoses Not on filedocumented in this encounter Additional Health Concerns Infection Onset Date Last Indicated Resolved Time COVID: Suspected 01/17/2022 01/17/2022 01/17/2022 10:28 PM PCMH SPECIALIST documented as of this encounter Care Teams Thermodynamicist Relationship Specialty Start Date End Date Asad Engel MD PCP - General 05/16/18 12/21/18 Anirudh Weathers DO PCP - General 12/22/18 12/28/18 Asad Engel MD PCP - General 12/29/18 09/16/22 Anirudh Weathers DO PCP - General Orthopedic Surgery 09/17/22 10/14/22 Asad Engel MD PCP - General Internal Medicine 10/15/22 Kodak Albright MD Consulting Physician Pain Management 07/05/22 Dajuan Weathers MD [facility] [place], [place] [address] Referring Physician Pediatrics 10/15/22 documented as of this encounter
--- OUTSIDE RECORDS SUMMARY | 2024-07-10 08:31 | XMS_ITS | Clinical Summary ---
Author Organization [facility] Address [address] [place] [address] Care Team Providers Care Demand Equipment Repairer Name Role Phone Asad Engel MD Primary Care Provider [phone] Source Comments [facility],non-owned Affiliates and Associated Physician Practices is amultiple site organization consisting of ambulatory clinics and hospital sitesin [place], [place], [place] and [place]. This disclosure is being madepursuant to the Care Everywhere program and may not contain all information available regarding this patient. Last updated 17.[facility] Allergies Active Allergy Reactions Criticality Noted Date Comments Diclofenac Sodium Rash Medium 04/26/2015 Iodine Drug Reaction with E osinophilia and Systemic Symptoms (DRESS) High 01/11/2016 Medications * Be aware that medications may not be up to date on this document. Alwaysverify current medications with the patient. No known medications Active Problems No known active problems Immunizations Immunization Administration Dates Next Due INFLUENZA VACCINE 12/09/2018 Social History Tobacco Use Types Packs/Day Years Used Date Smoking Tobacco: Never Assessed Sex and Gender Information Value Date Recorded Sex Assigned at Not on file Legal Sex Male 3:06 PM CDT Gender Identity Not on file Sexual Orientation [...] Health Maintenance Due Date Last Done Comments HEPATITIS C SCREENING 06/27/1963 DTAP/TDAP/TD VACCINES (1 - Tdap) 1965 PNEUMOCOCCAL VACCINE 50+ (1 of 1 - PCV) 1996 ZOSTER VACCINE (1 of 2) 1996 Respiratory Syncytial Virus (RSV) Vaccine Pt: or over 60 yrs (1 - 1-dose 75+ series) 2021 COVID-19 VACCINE (1 - 2023- season) 2023 DEPRESSION SCREENING 02/26/2024 INFLUENZA VACCINE (Season Ended) 2024 12/09/2018, 01/16/2017, 01/10/2016, Additional history exists HEPATITIS B VACCINE Aged Out No longe r eligible based on patient's age to complete this topic HIB VACCINE Aged Out No longer eligi ble based on patient's age to complete this topic HPV VACCINE Aged Out No longer eligi ble based on patient's age to complete this topic MENINGOCOCCAL (Group B) VACCINE SHARED DECISION-MAKING Aged Out No longer eligible based on patient's age to complete this topic MENINGOCOCCAL GROUPS A/C/Y/W VACCINE Aged Out No longer eligible based on patient's age to complete this topic Insurance MEDICARE [facility] MEDICARE [facility] Care Teams Demand Equipment Repairer Relationship Specialty Start Date End Date Asad Engel MD [address] [place] [address] PCP - General 12/16/18
--- OUTSIDE RECORDS SUMMARY | 2024-07-10 08:31 | XMS_ITS | Encounter Summary ---
Author Organization [facility] Address [address] [place] [address] Care Team Providers Care Power Plant Technician Name Role Phone Asad Engel MD Primary Care Provider [phone] Encounter Details Date Type Department Care Team (Late Contact Info) Description 08/22/2021 Abstract [facility] [address] Mark Mackay MA Social History Tobacco Use [...] on file Legal Sex Male 4:11 PM SURGICAL SERVICES ASST Gender Identity Not on file Sexual Orientation Not on file COVID-19 Exposure Response Date Recorded In the last 10 days, have yo u been in contact with someone who was confirmed or suspected to have Coronavirus/COVID-19? No / Unsure 08/24/2021 10:51 AM CDT documented as of this encounter Plan of Treatment Upcoming Encounters Date Type Department Care Team (Late Contact Info) Description 01/18/2025 8:00 AM SURGICAL SERVICES ASST Office Visit [facility] Multispecialty Care - [address] [place] [address] Siomara Dorado MD [address] [place] [address] documented as of this encounter Procedures Procedure Name Priority Date/Time Associated Diagnosis Comments CMP (ABSTRACTED LAB) Routine 04/27/2024 CBC (OUTSIDE LAB) Routine 04/27/2024 LIPID PANEL Routine 04/27/2024 HEMOGLOBIN, GLYCOSYLATED Routine 04/27/2024 HEMOGLOBIN, GLYCOSYLATED Routine 10/17/2022 COMPREHENSIVE METABOLIC PANEL [...] 12/12/2020 documented in this encounter Results * HEMOGLOBIN, GLYCOSYLATED (04/27/2024) Pathologist [facility] HGB A1C 8.0 % 04/27/2024 Default History Genericprovider LABORATORY Edited Result - Final * (ABNORMAL) CMP (ABSTRACTED LAB) (04/27/2024) Pathologist [facility] SODIUM S/P/B 139 POTASSIUM S/P/B 4.5 CHLORIDE S/P/B 107 CO2 26 BUN 13 CREATININE S/P/B 1.48(A) 0.7 - 1.3 EGFR AFR. AMER. 48 <=90 EGFR NON-AFR. AMER. 48 <=90 CALCIUM S/P/B 8.8 GLUCOSE 127 mg/dL TOTAL PROTEIN S/P/B 6.4 ALBUMIN S/P/B 3.7 3.5 - 5.0 AST 24 ALT 15 ALKALINE PHOSPHATASE S/P/B 141 BILIRUBIN TOTAL S/P/B 1.2 GLOBULIN 2.7 04/27/2024 Default History Genericprovider LAB-OUTSIDE/ABST RACTED Edited Result - Final * LIPID PANEL (04/27/2024) Pathologist [facility] CHOLESTEROL 127 HDL 43 TRIGLYCERIDES 56 LDL (CALCULATED) 73 04/27/2024 Default History Genericprovider LABORATORY Edited Result - Final * CBC (OUTSIDE LAB) (04/27/2024) Pathologist [facility] WBC 5.48 HGB 13.7 HCT 41.9 PLT 162 04/27/2024 Default History Genericprovider LAB-OUTSIDE/ABST RACTED Edited Result - Final * (ABNORMAL) COMPREHENSIVE METABOLIC PANEL (10/17/2022) Pathologist [facility] SODIUM S/P/B 140 GLUCOSE 229 mg/dL BUN 23 CREATININE S/P/B 1.62(A) 0.7 - 1.3 CALCIUM S/P/B 9.2 POTASSIUM S/P/B 4.2 CHLORIDE S/P/B 107 GFR ESTIMATE 44 Narrative Resulting Agency Comment Result [facility] Genericprovider LABORATORY Edited Result - Final * HEMOGLOBIN, GLYCOSYLATED (10/17/2022) HGB A1C 7.0 % Narrative Resulting Agency Comment Result [facility] Genericprovider LABORATORY Edited Result - Final * (ABNORMAL) COMPREHENSIVE METABOLIC PANEL (04/18/2022) Pathologist [facility] SODIUM S/P/B 140 GLUCOSE 87 mg/dL AST 28 BUN 16 CREATININE S/P/B 1.64(A) 0.7 - 1.3 CALCIUM S/P/B 9.4 POTASSIUM S/P/B 4.1 CHLORIDE S/P/B 110 ALT 25 GFR ESTIMATE 43 Result [facility] Genericprovider LABORATORY Edited Result - Final * LIPID PANEL (04/18/2022) Pathologist [facility] CHOLESTEROL 109 TRIGLYCERIDES 76 HDL 37 LDL (CALCULATED) 57 Result [facility] Genericprovider LABORATORY Edited Result - Final * CBC, MANUAL DIFF (04/18/2022) [facility] WBC 5.28 HGB 13.7 HCT 43.3 PLATELET COUNT 181 Result [facility] Genericprovider LABORATORY Edited Result - Final * HEMOGLOBIN, GLYCOSYLATED (04/18/2022) Pathologist [facility] HGB A1C 7.1 % Result [facility] History Genericprovider LABORATORY Edited Result - Final * (ABNORMAL) BASIC METABOLIC PANEL (06/12/2021) Pathologist [facility] SODIUM S/P/B 142 POTASSIUM S/P/B 4.4 CO2 29 CHLORIDE S/P/B 107 GLUCOSE 119 mg/dL CALCIUM S/P/B 9.1 BUN 19 CREATININE S/P/B 1.58(A) 0.7 - 1.3 EGFR AFR. AMER. 52 <=90 EGFR NON-AFR. AMER. 43 <=90 06/12/2021 [facility] Abstract LABORATORY Final Result * HEMOGLOBIN, GLYCOSYLATED (06/12/2021) Pathologist [facility] HGB A1C 7.4 % 06/12/2021 us Doc [facility] Abstract LABORATORY Final Result * PROSTATE SPECIFIC ANTIGEN,TOTAL (12/12/2020) Pathologist [facility] PSA 6.51 12/12/2020 [facility] Doc [facility] Abstract LABORATORY Final Result * CBC (OUTSIDE LAB) (12/12/2020) Pathologist [facility] WBC 6.11 HGB 12.7 HCT 40.8 PLT 194 12/12/2020 us [facility] Abstract LAB-OUTSIDE/ABSTRACTED Final Result * LIPID PANEL (12/12/2020) Pathologist [facility] CHOLESTEROL 119 HDL 37 TRIGLYCERIDES 61 LDL (CALCULATED) 70 12/12/2020 us Doc [facility] Abstract LABORATORY Final Result * (ABNORMAL) COMPREHENSIVE METABOLIC PANEL (12/12/2020) Pathologist [facility] SODIUM S/P/B 140 POTASSIUM S/P/B 4.3 CO2 [...] Total Score: 0 04/24/19 22 1:11 PM SURGICAL SERVICES ASST documented as of this encounter Care Teams Power Plant Technician Relationship Specialty Start Date End Date Asad Engel MD [address] [place] [address] PCP - General INTERNAL MEDICINE 06/19/18 documented as of this encounter
--- OUTSIDE RECORDS SUMMARY | 2024-07-10 08:31 | XMS_ITS | Encounter Summary ---
Author Organization [facility] Healthcare Address [address] [place] [address] Care Team Providers Care Safety And Security Manager Name Role Phone Asad Engel MD Primary Care Provider [phone] Kodak Albright MD Unavailable Anirudh Weathers DO Primary Care Provider [phone] Asad Engel MD Primary Care Provider [phone] Dajuan Weathers MD Unavailable [phone] Encounter Details Date Type Department Care Team (Late st Contact Info) Description 08/31/2022 Telephone [facility] Pain Mgmt [address] [place] [address] Wendie Romero, RN Social History Tobacco [...] on file 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 Gender Identity Not on file Sexual Orientation Not on file Occupation Industry Job Start Date Job End Date retired Not on file Not on file Not on file documented as of this encounter Functional Status documented as of this encounter Plan of Treatment Not on file documented as of this encounter Visit Diagnoses Not on filedocumented in this encounter Care Teams Safety And Security Manager Relationship Specialty Start Date End Date Asad Engel MD PCP - General 12/29/18 09/16/22 Anirudh Weathers DO PCP - General Orthopedic Surgery 09/17/22 10/14/22 Asad Engel MD PCP - General Internal Medicine 10/15/22 Kodak Albright MD Consulting Physician Pain Management 07/05/22 [place] [address] [place] [id number] Referring Physician Pediatrics 10/15/22 documented as of this encounter
--- OUTSIDE RECORDS SUMMARY | 2024-07-10 08:31 | XMS_ITS | Encounter Summary ---
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 Gender Identity Not on file Sexual Orientation Not on file documented as of this encounter Plan of Treatment Upcoming Encounters Date Type Department Care Team (Late Contact Info) Description 01/18/2025 8:00 AM ENGINE ASSEMBLER Office Visit [facility] Medical Group Multispecialty Care - [address], [address] [place] [address] Siomara Dorado MD [address] [place] [address] documented as of this encounter Visit Diagnoses Not on filedocumented in this encounter Additional Health Concerns Assessment Noted Time PHQ-9 Depression Total Score: 0 04/24/19 22 1:11 PM ENGINE ASSEMBLER documented as of this encounter Care Teams Top Lift Scourer Relationship Specialty Start Date End Date Asad Engel MD [address] [place] [address] PCP - General INTERNAL MEDICINE 06/19/18 documented as of this encounter
--- OUTSIDE RECORDS SUMMARY | 2024-07-10 08:31 | XMS_ITS | Encounter Summary ---
Author Organization [facility] Healthcare Address [address] [place] [address] Care Team Providers Care Assistant Accounting Manager Name Role Phone Asad Engel MD Primary Care Provider [phone] Kodak Albright MD Unavailable Anirudh Weathers DO Primary Care Provider [phone] Asad Engel MD Primary Care Provider [phone] Dajuan Weathers MD Unavailable [phone] Encounter Details Date Type Department Care Team (Late st Contact Info) Description 08/31/2022 Telephone [facility] Pain Mgmt [address] [place] [address] Wendie Romero, RN Social History Tobacco [...] on file 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 Gender Identity Not on file Sexual Orientation Not on file Occupation Industry Job Start Date Job End Date retired Not on file Not on file Not on file documented as of this encounter Functional Status documented as of this encounter Plan of Treatment Not on file documented as of this encounter Visit Diagnoses Not on filedocumented in this encounter Care Teams Assistant Accounting Manager Relationship Specialty Start Date End Date Asad Engel MD PCP - General 12/29/18 09/16/22 Anirudh Weathers DO PCP - General Orthopedic Surgery 09/17/22 10/14/22 Asad Engel MD PCP - General Internal Medicine 10/15/22 Kodak Albright MD Consulting Physician Pain Management 07/05/22 [place] [address] [place] [id number] Referring Physician Pediatrics 10/15/22 documented as of this encounter
--- OUTSIDE RECORDS SUMMARY | 2024-07-10 08:31 | XMS_ITS | Clinical Summary ---
Author Organization [facility] Address [address] [place] [address] Care Team Providers Care Shipping And Receiving Coordinator Name Role Phone Asad Engel MD Primary Care Provider [phone] Allergies Active Allergy Reactions Criticality Noted Date [...] 03/21/2023 Assessment & Plan (03/21/2023 5:22 PM CHECKING CLERK): Recommend stopping hydrochlorothiazide and increasing furosemide to 40 mg daily. Coronavirus infection 11/04/2022 Carcinoma of prostate ([facility]) 09/14/19 Cerebral atrophy 09/13/2022 Complex dyslipidemia 09/13/2022 Coronary artery disease due to type 2 diabetes mellitus ([facility]) 09/13/2022 Assessment & Plan (03/21/2023 5:22 PM CHECKING CLERK): He has is listed as a diagnosis. [...] treated. -will check for eradication on EGD skilled nursing (current) use of anticoagulants 2022 Overview (03/15/2023): [...] syndrome 11/01/2021 Acute respiratory failure with hypoxia ([facility] HHS/HCC) 11/01/2021 Asthma complicating , antepartum (HHS/H CC) 11/01/2021 Benign prostatic hyperplasia 11/01/2021 Chronic bilateral low back pain without sciatica 11/01/2021 Congestive heart failure wit h left ventricular diastolic dysfunction ([facility] HHS/HCC) 11/01/2021 Exercise-induced tachycardia 11/01/2021 Gastroesophageal reflux disease with esophagitis 11/01/2021 Gastrointestinal hemorrhage 11/01/2021 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 He has no evidence of atrial fibrillation on a 30-day monitor. Since he requires empiric anticoagulation, I do not think there is benefit to a loop recorder. Assessment & Plan (03/22/2022 12:31 PM CHECKING CLERK): Unknown mechanism for his CVA. He has [...] 07/04/2021 Assessment & Plan (03/21/2023 5:22 PM CHECKING CLERK): Home blood pressure is well controlled. Continue antihypertensive therapy. Assessment & Plan (03/22/2022 12:31 PM CHECKING CLERK): Home blood pressure is well controlled. Continue [...] and lisinopril. Stage 3 chronic kidney disease 06/10/2019 Moderate persistent asthma, unspecified whether complicated ([facility]) 06/10/2019 S/P revision of total knee, left 05/14/2019 Overview (01/17/2024): April 17, 2019 Lumbar degenerative disc disease 12/01/2018 Overview (09/13/2022): Last Assessment & Plan: Patient gets relief with injections to the lumbar spine. Scheduled for another shot on Saturday. Recommend consultation with Dr. Ramos Type 2 diabetes mellitus wit h other specified complication ([facility]) 08/14/2017 Overview (05/25/2021): Last Assessment & Plan: Possibility of diabetic neuropathy. Consider EMG NCV in the future. Hyperlipidemia 04/11/2011 Assessment & Plan (03/22/2022 12:31 PM CHECKING CLERK): We do not have a recent lipid [...] reflux disease 09/19/2010 DVT (deep venous thrombosis) ([facility]) Assessment & Plan (03/21/2023 5:23 PM CHECKING CLERK): Continue rivaroxaban. Assessment & Plan (03/22/2022 12:31 PM CHECKING CLERK): Continue rivaroxaban. Assessment & Plan (09/06/2021 10:53 AM CDT): Remote hx of DVT Has been on xarelto for a few years now Encounters Date Type Department Care Team Description 05/12/2024 [facility]phone [facility] [address] [address] Kaylin Mejia RN Results from Last 3 Months Family History Medical [...] on file Legal Sex Male 4:11 PM CHECKING CLERK Gender Identity Not on file Sexual Orientation Not on file Last Filed Vital Signs Vital Sign Reading Time Taken Comments Blood Pressure 120/62 01/17/2024 8:49 AM CHECKING CLERK Pulse 86 01/17/2024 8:49 AM CHECKING CLERK Temperature 36.2 C (97.2 F) 01/17/2024 8:49 AM CHECKING CLERK Respiratory Rate 16 01/17/2024 8:49 AM CHECKING CLERK Oxygen Saturation 97% 01/17/2024 8:49 AM CHECKING CLERK Inhaled Oxygen Concentration - - Weight 102.1 kg (225 lb) 01/17/2024 8:49 AM CHECKING CLERK Height 167.6 cm (5' 6 ) 01/17/2024 8:49 AM CHECKING CLERK Body Mass Index 36.32 01/17/2024 8:49 AM CHECKING CLERK Plan of Treatment Upcoming Encounters Date Type Department Care Team (Late st Contact Info) Description 01/18/2025 8:00 AM CHECKING CLERK Office Visit [facility] Medical Group Multispecialty Care - [facility] [address] [facility], [address] [place] [address] Siomara Dorado MD [address] [place] [address] Health Maintenance Due Date Last Done Comments Kidney Health Evaluation 1945 Diabetes: Retinopathy Eye Exam 1963 Hepatitis C 1963 DTaP, Tdap and Td Vaccines (1 - Tdap) 1965 Pneumococcal Vaccine: 50+ Years (1 of 2 - PCV) 1965 Zoster Vaccines (1 of 2) 1996 Annual Medicare Wellness Visit 07/03/2011 RSV Immunization or 60+ Years (1 - 1-dose 75+ series) 2021 COVID-19 Vaccine ( season) 2023 12/04/2020, 05/10/2020, 04/19/2020 PHQ-2 (Physician Moody) 02/26/2024 01/17/2024 Hemoglobin A1C 10/28/2024 04/27/2024, 09/26, 04/18/2022, Additional history exists Lipid Panel 04/27/2025 04/27/2024, 030 04/2024, 04/23/2023, Additional history exists Colorectal Cancer Screening Colonoscopy (10 Years) Discontinued 06/24/2018 Meningococcal B Vaccine Aged Out No l onger eligible based on patient's age to complete this topic Meningococcal Vaccine Aged Out No jerica ashlyn eligible based on patient's age to complete this topic RSV Immunizations Under 20 Months Aged Out No longer eligible based on patient's age to complete this topic Procedures Procedure Name Priority Date/Time Associated Diagnosis Comments HEMOGLOBIN, GLYCOSYLATED Routine 04/27/2024 CMP (ABSTRACTED LAB) Routine 04/27/2024 LIPID PANEL Routine 04/27/2024 CBC (OUTSIDE LAB) Routine 04/27/2024 COLONOSCOPY Routine 06/24/2018 6:10 AM CDT from Last 3 Months or Most Recently Relevant to Health Maintenance Results * (ABNORMAL) CMP (ABSTRACTED LAB) (04/27/2024) SODIUM S/P/B 139 POTASSIUM S/P/B 4.5 CHLORIDE S/P/B 107 CO2 26 BUN 13 CREATININE S/P/B 1.48(A) 0.7 - 1.3 EGFR AFR. AMER. 48 <=90 EGFR NON-AFR. AMER. 48 <=90 CALCIUM S/P/B 8.8 GLUCOSE 127 mg/dL TOTAL PROTEIN S/P/B 6.4 ALBUMIN S/P/B 3.7 3.5 - 5.0 AST 24 ALT 15 ALKALINE PHOSPHATASE S/P/B 141 BILIRUBIN TOTAL S/P/B 1.2 GLOBULIN 2.7 04/27/2024 us Default History Genericprovider LAB-OUTSIDE/ABST RACTED Edited Result - Final * CBC (OUTSIDE LAB) (04/27/2024) WBC 5.48 HGB 13.7 HCT 41.9 PLT 162 04/27/2024 us Default History Genericprovider LAB-OUTSIDE/ABST RACTED Edited Result - Final * LIPID PANEL (04/27/2024) CHOLESTEROL 127 HDL 43 TRIGLYCERIDES 56 LDL (CALCULATED) 73 04/27/2024 us Default History Genericprovider LABORATORY Edited Result - Final * HEMOGLOBIN, GLYCOSYLATED (04/27/2024) HGB A1C 8.0 % 04/27/2024 us Default History Genericprovider LABORATORY Edited Result - Final from Last 3 Months Insurance MEDICARE [facility] Care Teams Shipping And Receiving Coordinator Relationship Specialty Start Date End Date Asad Engel MD [address] [place] [phone] PCP - General INTERNAL MEDICINE 06/19/18
--- OUTSIDE RECORDS SUMMARY | 2024-07-10 08:31 | XMS_ITS | Encounter Summary ---
Author Organization [facility] Facility Care Team Providers Care Brim Plater Name Role Phone Asad Engel MD Primary Care Provider [phone] Anirudh Weathers DO Primary Care Provider [phone] Asad Engel MD Primary Care Provider [phone] Kodak Albright MD Unavailable Anirudh Weathers DO Primary Care Provider [phone] Asad Engel MD Primary Care Provider [phone] Dajuan Weathers MD Unavailable [phone] Encounter Details Date Type Department Care Team (Latest Contact Info) Description 05/01/2017 Orders Only [facility] ProviderNidia MD [address] [place] [address] Social History Tobacco Use Types Packs/Day Years Used Date Smoking Tobacco: Never Sex and Gender Information Value Date Recorded Sex Assigned at Not on file Legal Sex 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 Gender Identity Not on file Sexual Orientation [...] COVID: Suspected 01/17/2022 01/17/2022 01/17/2022 10:28 PM LOADING MANAGER documented as of this encounter Care Teams Brim Plater Relationship Specialty Start Date End Date Asad Engel MD PCP - General 05/16/18 12/21/18 Anirudh Weathers DO PCP - General 12/22/18 12/28/18 Asad Engel MD PCP - General 12/29/18 09/16/22 Anirudh Weathers DO PCP - General Orthopedic Surgery 09/17/22 10/14/22 Asad Engel MD PCP - General Internal Medicine 10/15/22 Kodak Albright MD Consulting Physician Pain Management 07/05/22 [place] [address] [place] [phone] Referring Physician Pediatrics 10/15/22 documented as of this encounter
--- OUTSIDE RECORDS SUMMARY | 2024-07-10 08:31 | XMS_ITS | Encounter Summary ---
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 Gender Identity Not on file Sexual Orientation Not on file documented as of this encounter Plan of Treatment Upcoming Encounters Date Type Department Care Team (Late Contact Info) Description 01/18/2025 8:00 AM GENERAL MACHINIST Office Visit [facility] Medical Group Multispecialty Care - [facility] [address] [facility], [address] [place] [phone] Siomara Dorado MD [address] [place] [address] documented as of this encounter Visit Diagnoses Diagnosis Klebsiella infection- Primary Klebsiella pneumoniae documented in this encounter Additional Health Concerns Assessment Noted Time PHQ-9 Depression Total Score: 0 04/24/19 22 1:11 PM GENERAL MACHINIST documented as of this encounter Care Teams Mud Mixer Helper Relationship Specialty Start Date End Date Asad Engel MD [address] [place] [id number] PCP - General INTERNAL MEDICINE 06/19/18 documented as of this encounter
--- OUTSIDE RECORDS SUMMARY | 2024-07-10 08:31 | XMS_ITS ---
Author Organization [facility] Address [facility] [place] [address] Care Team Providers Care Retort Kiln Burner Name Role Phone Asad Engel MD Primary Care Provider [phone] Active Problems Problem Noted Date Diagnosed Date Bilateral lower extremity edema 03/21/2023 Assessment & Plan (03/21/2023 5:22 PM SOLE POLISHER): Recommend stopping hydrochlorothiazide and increasing furosemide to 40 mg daily. Coronavirus infection 11/04/2022 Carcinoma of prostate ([facility]) 09/14/19 Cerebral atrophy 09/13/2022 Complex dyslipidemia 09/13/2022 Coronary artery disease due to type 2 diabetes mellitus ([facility]) 09/13/2022 Assessment & Plan (03/21/2023 5:22 PM SOLE POLISHER): He has is listed as a diagnosis. [...] treated. -will check for eradication on [facility] shelter (current) use of anticoagulants 2022 Overview (03/15/2023): [...] syndrome 11/01/2021 Acute respiratory failure with hypoxia ([facility]) 11/01/2021 Asthma complicating , antepartum ([facility]/H [facility]) 11/01/2021 Benign prostatic hyperplasia 11/01/2021 Chronic bilateral low back pain without sciatica 11/01/2021 Congestive heart failure wit h left ventricular diastolic dysfunction ([facility]/H[facility]) 11/01/2021 Exercise-induced tachycardia 11/01/2021 Gastroesophageal reflux disease with esophagitis 11/01/2021 Gastrointestinal hemorrhage 11/01/2021 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 He has no evidence of atrial fibrillation on a 30-day monitor. Since he requires empiric anticoagulation, I do not think there is benefit to a loop recorder. Assessment & Plan (03/22/2022 12:31 PM SOLE POLISHER): Unknown mechanism for his CVA. He has [...] 07/04/2021 Assessment & Plan (03/21/2023 5:22 PM SOLE POLISHER): Home blood pressure is well controlled. Continue antihypertensive therapy. Assessment & Plan (03/22/2022 12:31 PM SOLE POLISHER): Home blood pressure is well controlled. Continue [...] 06/10/2019 Moderate persistent asthma, unspecified whether complicated ([facility]) 06/10/2019 S/P revision of total knee, left 05/14/2019 Overview (01/17/2024): April 17, 2019 Lumbar degenerative disc disease 12/01/2018 Overview (09/13/2022): Last Assessment & Plan: Patient gets relief with injections to the lumbar spine. Scheduled for another shot on Saturday. Recommend consultation with Dr. Ramos Type 2 diabetes mellitus wit h other specified complication ([facility]) 08/14/2017 Overview (05/25/2021): Last Assessment & Plan: Possibility of diabetic neuropathy. Consider EMG NCV in the future. Hyperlipidemia 04/11/2011 Assessment & Plan (03/22/2022 12:31 PM SOLE POLISHER): We do not have a recent lipid [...] reflux disease 09/19/2010 DVT (deep venous thrombosis) ([facility]) Assessment & Plan (03/21/2023 5:23 PM SOLE POLISHER): Continue rivaroxaban. Assessment & Plan (03/22/2022 12:31 PM SOLE POLISHER): Continue rivaroxaban. Assessment & Plan (09/06/2021 10:53 AM CDT): Remote hx of DVT Has been on xarelto for a few years now Current Treatment and Therapy Plans No current plan information found. Past Treatment and Therapy Plans
[2024-07-10 08:43] LABS: Estimated Glomerular Filt Rate 34
== END 2024-07-10 08:23 | disposition home or self-care (01) ==
LOC: ANHIMG 08:24
PROVIDERS: PCP Internal Medicine; Visit Provider Urology
DX: R59.0 Localized enlarged lymph nodes (principal); K86.2 Cyst of pancreas; N20.0 Calculus of kidney
CPT/HCPCS: 74177; Q9967